=== PATIENT | female | born 1995 | race Caucasian/White ===

== ENCOUNTER → 2018-11-19 13:54 | Outpatient (CLI) | payer OTHER, SELFPAY ==
[2018-11-19 13:01] VITALS: BMI 47.0
[2018-11-19 15:49] LABS: Protein, Urine (Random) 12.5 mg/dL (<11.9); Protein:Creat Ratio 82 mg/g CRE (0-200)
[2018-11-19 15:52] LABS: Absolute Lymphocyte Count 3.73 X10^3/ul (0.83-4.51); Basophil# 0.01 X10^3/uL; Basophil% 0.1 % (0-1); Eosinophil# 0.12 X10^3/uL; Eosinophils% 0.8 % (0-5); Hematocrit 42.1 % (37-47); Hemoglobin 14.2 g/dl (12.0-15.0); Lymphocyte # 3.73 X10^3/ul (4.0); Lymphocyte % 25.4 % (19-41); Mean Corp Hgb Conc 33.7 g/gl (32-36); Mean Corpuscular Hgb 29.3 pg (27.0-32.0); Mean Platelet Vol. 10.3 fl (6.2-12.0); Monocyte# 0.79 X10^3/uL; Monocyte% 5.4 % (0-10); Neutrophil # 10.02 X10^3/uL (2.7-7.7); Neutrophil % 68.2 % (47-70); Platelet Count 329 K/mm3 (150-450); RBC Distribution Width CV 13.4 % (11.6-14.6); RBC Distribution Width SD 42.2 fl (35.1-43.9); Red Blood Count 4.84 M/mm3 (4.2-5.4); White Blood Count 14.7 K/mm3 (4.4-11.0)
[2018-11-19 16:05] LABS: AST(SGOT) 10 U/L (15-37); Alanine Aminotransfer ALT/SGPT 20 U/L (13-56); Albumin, Serum 3.5 g/dL (3.2-5.0); Alkaline Phosphatase 64 U/L (45-117); Anion Gap 11 (5-15); BUN 9 mg/dL (7-18); BUN/Creat Ratio 14.6 RATIO (10-20); Calcium,Total 9.2 mg/dL (8.5-10.1); Chloride 104 mmol/L (98-107); Creatinine, Serum 0.62 mg/dL (0.55-1.02); EST Glomerular Filtration Rate 126 mL/min (>60); Est Glom Filt Rate - Afr Amer 153 mL/min (>60); Globulin 3.6 g/dL (2.2-4.2); Glucose 166 mg/dL (74-106); Glucose Challenge Gest 1H 50g 166 mg/dL (70-140); Potassium 3.3 mmol/L (3.5-5.1); Protein, Total 7.1 g/dL (6.4-8.2); Sodium Level 138 mmol/L (136-145)
[2018-11-19 16:12] LABS: POSITIVE COUNT NO; POSITIVE DIFFERENTIAL NO; POSITIVE MORPHOLOGY NO
[2018-11-19 16:55] LABS: HIV - WCH Non-Reactive (Nonreactive); Rubella IgG > 500.0 IU/mL
[2018-11-19 18:39] LABS: Chlamydia Trachomatis by PCR Negative (Negative); Neisserai gonorrhoeae by PCR Negative (Negative); Probe Check PASS; Sample Adequacy Control PASS; Specimen Processing Control PASS
[2018-11-19 22:03] LABS: Chlamydia Trachomatis by PCR Negative (Negative); Neisserai gonorrhoeae by PCR Negative (Negative); Probe Check PASS; Sample Adequacy Control PASS; Specimen Processing Control PASS
[2018-11-21 11:52] LABS: HEPATITIS B SURFACE AG Negative (Negative)
[2018-11-22 11:11] LABS: HPV Reflexed? NOT INDICATED
[2018-11-23 07:38] LABS: Rapid Plasmin Reagin (RPR) NONREACTIVE (NONREACTIVE)
== END ==
PROVIDERS: Visit Provider Obstetrics & Gynecology
DX: Z34.90 Encounter for supervision of normal pregnancy, unspecified, unspecified trimester (principal); Z12.4 Encounter for screening for malignant neoplasm of cervix
CPT/HCPCS: 36415; 80053; 82570; 82950; 84156; 85025; 86592; 86703; 86762; 86850; 86900; 87086; 87088; 87340; 87491; 87591; 87624; 88175; G0145

== ENCOUNTER 2018-12-28 19:32 | Inpatient (IN) | payer OTHER, SELFPAY ==
[2018-12-07 09:07] VITALS: BMI 47.0
[2018-12-28] VITALS (10 sets, daily range): BP systolic 122–164; BP diastolic 69–84; PULSE 126–137; RESP 20–28; TEMP 37.7–39.2; O2SAT 91–95; BMI 46.0
--- NOTE | 2018-12-28 20:36 | EKG12_ITS ---
Test Reason : SOB Blood Pressure : / mmHG Vent. Rate : 124 BPM Atrial Rate : 124 BPM P-R Int : 132 ms QRS Dur : 090 ms QT Int : 304 ms P-R-T Axes : 059 048 016 degrees QTc Int : 436 ms Sinus tachycardia Otherwise normal ECG Confirmed by PEYTON GALVEZ, CARLOS ([id number]), legal editor RYANN GUZMÁN ([id number] on 01/01/2019 9:20:53 AM Referred By: Robbie Rios Confirmed By:CARLOS TODD MD
--- NOTE | 2018-12-28 20:36 | RAD_ITS ---
STUDY: X-RAY CHEST REASON FOR EXAM: Female, 23 years old. dx with pneumonia x 3 days, feeling worse TECHNIQUE: Frontal and lateral views of the chest. COMPARISON: None. FINDINGS: Normal lung volumes. Prominent opacification of the right lower lobe extending to and involving the right hilum. Findings are consistent with combination of pneumonia and atelectasis. No effusion. Left lung appears clear. Normal size heart. Normal mediastinum and jerry. Normal visualized pulmonary arteries. Normal visualized aortic arch and descending thoracic aorta. Normal visualized thoracic spine. Normal visualized ribs, clavicles, and shoulders. There is no demonstrated abnormality of the visualized soft tissue structures of the upper abdomen. RAD/Chest PA and Lateral IMPRESSION: Prominent opacification of the right lower lobe extending to and involving the right hilum. Findings are consistent with combination of pneumonia and atelectasis. Electronically Signed: Praful Shrestha MD at 21:48 EST , Service support ,
[2018-12-28] MEDS: Ipratropium/Albuterol Sulfate 3 ML AMPUL.NEB INHALATION ×2 (20:54→23:49)
[2018-12-28] MEDS: Albuterol 2.5 MG/3 ML VIAL.NEB. INHALATION ×2 (20:54→21:47)
[2018-12-28 21:02] LABS: Red Blood Cells-Urine 0 SEEN /hpf (0-5)
[2018-12-28 21:09] LABS: Color, Urine Yellow (Yellow); Glucose, Dipstick Normal (Normal); Ketone-Dipstick 50 mg/dl (Negative); Leukocyte Esterase-Dipstick 25 /ul (Negative); Nitrite-Dipstick Negative (Negative); Occult Blood-Urine 10 /ul (Negative); Protein-Dipstick 15 mg/dl (Negative); Urine Bilirubin Dipstick Negative (Negative); Urine Clarity Clear (Clear); Urine Urobilinogen 1 mg/dl (Normal)
[2018-12-28 21:17] LABS: Calcium Oxalate Crystals Ur RARE /hpf (<or=2+); Mucous, Urine 2+ /hpf (<or=2+); Squamous Epithelial Cells - UA 0-5 SEEN /hpf (5-10)
[2018-12-28 21:18] LABS: Bacteria RARE /hpf (None Seen); White Blood Cells 0 SEEN /hpf (0-5)
[2018-12-28 21:33] LABS: Absolute Lymphocyte Count 1.84 X10^3/ul (0.83-4.51); Absolute Neutrophil Count 7.6 X10^3/uL (2.0-7.7); Basophil# 0.02 X10^3/uL; Basophil% 0.2 % (0-1); Hematocrit 36.3 % (37-47); Hemoglobin 12.1 g/dl (12.0-15.0); Lymphocyte # 1.84 X10^3/ul (4.0); Lymphocyte % 17.6 % (19-41); Mean Corp Hgb Conc 33.3 g/gl (32-36); Mean Corpuscular Hgb 28.3 pg (27.0-32.0); Mean Platelet Vol. 9.5 fl (6.2-12.0); Monocyte% 8.6 % (0-10); Neutrophil # 7.64 X10^3/uL (2.7-7.7); Neutrophil % 73.2 % (47-70); POSITIVE COUNT NO; POSITIVE DIFFERENTIAL NO; POSITIVE MORPHOLOGY NO; Platelet Count 272 K/mm3 (150-450); RBC Distribution Width CV 14.4 % (11.6-14.6); RBC Distribution Width SD 44.9 fl (35.1-43.9); Red Blood Count 4.27 M/mm3 (4.2-5.4); White Blood Count 10.4 K/mm3 (4.4-11.0)
[2018-12-28] MEDS: Ceftriaxone 1 GM/50 ML BAG IV (21:42)
[2018-12-28 21:53] LABS: Anion Gap 10 (5-15); BUN 6 mg/dL (7-18); BUN/Creat Ratio 8.9 RATIO (10-20); Calcium,Total 8.6 mg/dL (8.5-10.1); Chloride 101 mmol/L (98-107); Creatinine, Serum 0.67 mg/dL (0.55-1.02); EST Glomerular Filtration Rate 114 mL/min (>60); Est Glom Filt Rate - Afr Amer 138 mL/min (>60); Estimated Creatinine Clearance 204.39 ml/min; Glucose 96 mg/dL (74-106); Potassium 3.6 mmol/L (3.5-5.1); Sodium Level 134 mmol/L (136-145)
--- NOTE | 2018-12-28 21:53 | ED.RN ---
US was needed to place IV. Attempted 2nd BC, not successful, MD aware.
[2018-12-28 22:05] LABS: Lactic Acid 1.7 mmol/L (0.4-2.0)
--- NOTE | 2018-12-28 22:19 | HP.PCM_ITS ---
Problem List (1) Community acquired pneumonia Status: Acute (2) Asthma Status: Chronic Qualifiers: Asthma severity: mild Asthma persistence: intermittent Asthma complication type: uncomplicated Qualified Code(s): J45.20 - Mild intermittent asthma, uncomplicated Comment: uses albuterol PRN History of Present Illness Date of Admission: 12/28/18 Chief Complaint: cough The patient is a 23 year old F with a significant history of asthma who is 14 weeks presenting to the emergency department because of 5-day history of progressively worsening cough. Associated with her symptoms is sore throat; sore eardrums; chills; nausea; vomiting; wheezing, poor appetite and abdominal pain. Her cough is productive for yellow sputum. She reported that her boyfriend recently had pneumonia. She went to urgent care. At the urgent care her temperature was 100.4. Reportedly because she was she was not given any medication. Because of progressively worsening shortness of breath, 2 days later she went to [facility] where an x-ray showed right-sided pneumonia. She was given fluids and azithromycin. Because she was still not feeling better she went to see her PCP. At the PCPs office tone was no head. Urinalysis was done. She was told to call her INTEGRITY MANAGER doctor. Patient called her MACHINE PECAN PICKER doctor and she was instructed to come to the emergency department. At emergency department heart tone was no heard. But an ultrasound of her pelvis showed viable fetus but with low amniotic fluid. Dr. Rita Sierra OBGYVirla was consulted from the ED and she requested hydration and repeat vaginal ultrasound next day. Her urinalysis was mildly abnormal and her x-ray showed opacification of the right lower lobe extending to the right hilium. Patient was given breathing treatment and ceftriaxone. Of note patient reports history of hallucination with systemic steroids. 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 Asthma (Chronic) J45.909 uses albuterol PRN Allergies prednisone Allergy (Mild, Verified 12/28/18 19:33) hallucinations Sulfa (Sulfonamide Antibiotics) Allergy (Mild, Verified 12/28/18 19:33) hives Home Medications: Ambulatory Orders Medication Instructions Recorded albuterol sulfate 0.63 mg/3 mL 0.63 mg INHALATION Q4H 11/19/18 solution for nebulization albuterol sulfate HFA 90 2 puff INHALATION Q6H PRN 11/19/18 mcg/actuation aerosol inhaler Azithromycin 250 mg PO DAILY 12/28/18 Cefuroxime Axetil [Cefuroxime] 500 mg PO BID 12/28/18 Surgical History: Surgical History (Last Reviewed 12/07/18 @ 09:01 by Kaylie Carey) History of tonsillectomy and adenoidectomy Z98.890 [place] teeth removed K08.409 Lives: With Family Smoking Status: Former smoker Review of Systems Constitutional: Reports: Anorexia, Chills, Fever. Denies: Weight Change HEENT: Reports: Ear Pain, Sore Throat. Denies: Head Aches, Sinus Congestion, Sinus Drainage Cardiovascular: Denies: Chest Pain, Palpitations Respiratory: Reports: Cough, Shortness of Breath, Sputum production Gastrointestinal: Reports: Abdominal Pain Genitourinary: Denies: Incontinence, Nocturia Musculoskeletal: Denies: Joint Pain, Joint Tenderness Skin: Denies: Rash, Wounds Neurological: Denies: Numbness, Tingling, Focal weakness Psychiatric: Denies: Anxiety, Depression, Homicidal Ideations, Suicidal Ideations Hematologic/ Lymphatic: Denies: Easy Bruising, Easy Bleeding VTE Information - Inpt Only VTE Present on Admission: No VTE Mechan Device Prophylaxis: SCD's VTE Pharm Prophylaxis ordered?: No Patient Problems: Active and Suspected Problems (Last Reviewed 12/07/18 @ 09:01 by Kaylie Carey) Community acquired pneumonia (Acute) - Physical Exam General: Alert, Oriented x3, Cooperative HEENT: Atraumatic, PERRLA, EOMI, Normocephalic Neck: Supple, No JVD, Negative Carotid Bruits Lungs: Tachypneic, Wheezes Cardiovascular: No murmurs, Tachycardic Abdomen: Bowel Sounds Present, Soft, Non Tender Extremities: No edema, Capillary Refill Less than 3 Seconds Skin: No rashes, No breakdown Musculoskeletal: No Tenderness to Palpation of Joints or Extremities Neurological: Neuro grossly intact Psych/Mental Status: Normal Affect, Appropriate Vital Signs Temp Pulse Resp BP Pulse Ox 99.8 F H 136 H 20 H 136/69 H 93 12/28/18 21:52 12/28/18 21:52 12/28/18 21:52 12/28/18 21:52 12/28/18 21:52 Oxygen Delivery Method Room Air Weight: 100 kg Body Mass Index (BMI) 46.0 Laboratory Tests Past 24 Hrs 12/28/18 12/28/18 12/28/18 20:50 21:21 21:21 WBC 10.4 RBC 4.27 Hgb 12.1 Hct 36.3 L MCV 85.0 MCH 28.3 MCHC 33.3 RDW 14.4 RDW Differential 44.9 H Plt Count 272 MPV 9.5 Immature Gran % (Auto) 0.400 Neut % (Auto) 73.2 H Lymph % (Auto) 17.6 L [place] % (Auto) 8.6 Eos % (Auto) 0.0 Baso % (Auto) 0.2 Absolute Neuts (auto) 7.6 Absolute Lymphs (auto) 1.84 Total Counted Not Reportable Sodium 134 L Potassium 3.6 Chloride 101 Carbon Dioxide 23.0 Anion Gap 10 BUN 6 L Creatinine 0.67 Estim Creat Clear Calc 204.39 Est GFR (MDRD) Af Amer 138 Est GFR (MDRD) Non-Af 114 BUN/Creatinine Ratio 8.9 L Glucose 96 Lactic Acid Calcium 8.6 Urine Color Yellow Urine Clarity Clear Urine pH 5.0 Ur Specific [place] 1.020 Urine Protein 15 H Urine Glucose (UA) Normal Urine Ketones 50 H Urine Occult Blood 10 H Urine Nitrite Negative Urine Bilirubin Negative Urine Urobilinogen 1 H Ur Leukocyte Esterase 25 H Urine RBC 0 SEEN Urine WBC 0 SEEN Ur Squamous Epith Cells 0-5 SEEN Calcium Oxalate Crystal RARE Urine Bacteria RARE Urine Mucus 2+ 12/28/18 21:21 WBC RBC Hgb Hct MCV MCH MCHC RDW RDW Differential Plt Count MPV Immature Gran % (Auto) Neut % (Auto) Lymph % (Auto) [place] % (Auto) Eos % (Auto) Baso % (Auto) Absolute Neuts (auto) Absolute Lymphs (auto) Total Counted Sodium Potassium Chloride Carbon Dioxide Anion Gap BUN Creatinine Estim Creat Clear Calc Est GFR (MDRD) Af Amer Est GFR (MDRD) Non-Af BUN/Creatinine Ratio Glucose Lactic Acid 1.7 Calcium Urine Color Urine Clarity Urine pH Ur Specific [place] Urine Protein Urine Glucose (UA) Urine Ketones Urine Occult Blood Urine Nitrite Urine Bilirubin Urine Urobilinogen Ur Leukocyte Esterase Urine RBC Urine WBC Ur Squamous Epith Cells Calcium Oxalate Crystal Urine Bacteria Urine Mucus Assessment/Plan All Active Problems (Last Reviewed 12/07/18 @ 09:01 by Kaylie Carey) Community acquired pneumonia (Acute) Anxiety during (Acute) 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 Sepsis secondary to Committee acquired pneumonia Patient received ceftriaxone at the emergency department. Ceftriaxone continued. She had received azithromycin prior to presentation. We will continue patient on azithromycin IV. Scheduled DuoNeb and as needed albuterol ordered Will avoid steroids since patient has a history of hallucinations with steroids. Blood cultures are pending. Comprehensive respiratory pathogen panel ordered Legionella antigen and strep pneumo antigen ordered. Mycoplasma antibody ordered. Scheduled DuoNeb and as needed albuterol. Lactic acid was unremarkable. Patient met sepsis criteria with tachycardia; tachypnea and with radiographic evidence of pulmonary consolidation. Asthma exacerbation Likely due to pneumonia Scheduled DuoNeb. As need Albuterol. No steroids due to history of hallucination with steroids. UTI Abnormal urinalysis. Patient with mildly abnormal urinalysis in the setting of . Bacteria rare; leukocyte esterase 25 and nitrite negative. Will obtain urine culture. We will treat as UTI. Low Amniotic Fluid IVF normal saline hydration Repeat vaginal ultrasound in am per OBGYN recommendation tone every shift. OBGYN consult. DVT prophylaxis SCD Code Visit Inpatient E&M: 13114 Init Hosp L3
--- NOTE | 2018-12-28 22:52 | US_ITS ---
STUDY: SECOND AND THIRD TRIMESTER OBSTETRICAL ULTRASOUND - LIMITED REASON FOR EXAM: Female, 23 years old. Abdominal pain and discharge LMP: 09/20/2018 PRIOR ULTRASOUND: None. TECHNIQUE: Transvaginal TECHNICAL QUALITY: Adequate. FINDINGS: There is a single intrauterine fetus. The fetus is in a breech presentation. There is demonstrated cardiac activity with a heart rate of 190 bpm. There is grossly decreased amniotic fluid volume suggesting oligohydramnios. The largest demonstrated amniotic fluid pocket measures 0.9 cm.The placenta is fundal and anterior in location. There are Grade 0 placental changes. The cervix measures 3.1 cm in length. Debris is present in the maternal bladder. A maternal left ovary cyst is present measuring 1.5 cm. BIOMETRY: BPD: 1.95 cm: 13 weeks, 1 days HC: 7.72: 13 weeks, 2 days AC: 6.47: 13 weeks, 2 days FL: 0.82: 12 weeks, 4 days Age by LMP: 14 weeks, 1 days. ELVIA by LMP: 06/27/2019. age by current US: 13 weeks, 1 days. ELVIA by current US: 07/04/2019. Estimated weight: 65 grams, +/- 10 grams, percentile. US/Transvaginal w/Preg US IMPRESSION: Intrauterine gestation with sonographic age of 13 weeks 1 day. Cervix is closed. Positive cardiac activity. Low amniotic fluid volume. Normal placenta. Electronically Signed: Pedro Castellanos MD at 0:22 EST Tel , Service support ,
--- NOTE | 2018-12-28 23:48 | ED.VISSUMM ---
- ER Visit Summary Date of Service: 12/28/18 Chief Complaint: [Shortness of breath] History of Present Illness: The patient is a 23 F [presents with shortness of breath times 5 days. Patient states that she started coughing and feeling short of breath 5 days ago. Patient was seen at [facility] and had a chest x-ray 2 days ago and diagnosed with a right-sided pneumonia. Patient was started at that time on Zithromax. Prior to that 5 days ago she was seen at urgent care and had an influenza screen that was negative. Patient subsequently had a second influenza screen that was negative. Patient was seen by her primary care physician today who added a second antibiotic cefuroxime which she just started today. Patient complains of exertional dyspnea as well as a cough that is productive of yellow sputum. Patient continues to have fevers up to 103. Patient is also 14 weeks . Patient states that during her visits nobody is been able to Doppler heart tones. Patient's last pelvic ultrasound was in November and at that time was diagnosed with a threatened as she had had some bleeding issues. Patient states that she did pass one clot yesterday. She is complaining of some lower abdominal discomfort.] Physical Examination: [HEENT-PERRLA, EOMI. Cranial nerves II through XII grossly intact. TMs clear. Mucous membranes moist. No adenopathy. Cardiovascular-regular and tachycardic. No murmurs auscultated. Lungs-diminished breath sounds in the bases with rhonchi and expiratory wheezes bilaterally. Patient is tachypneic. No accessory muscle use or retractions. Abdomen-normoactive bowel sounds, soft. Patient has some mild tenderness to palpation over the lower abdomen diffusely. There is no rebound, rigidity, or perineal signs. Extremities-intact ?4, normal range of motion, normal pulses, atraumatic] Test Results: [EKG obtained showed sinus rhythm with a ventricular rate of 124 bpm. CBC with differential showing a 10.4, hemoglobin 12, hematocrit 36, platelets 272. Chemistries unremarkable. Lactate was 1.7. Chest x-ray showed a right lower lobe pneumonia. Pelvic ultrasound ordered and pending as we were unable to obtain heart tones.] Emergency Department Course and Treatment: [Patient was started on Rocephin IV. Patient had already taken Zithromax today.] Treatment Plan: [Care of patient turned over to evening physician awaiting pelvic ultrasound results. I discussed case with hospitalist who will evaluate patient for admission after we discussed case with patient's DIRECT RESPONSE CONSULTANT.] Disposition: [Admission] Impression: [Pneumonia Sepsis 14-week ] This note was generated with Jiglu dictation software. It may contain incorrect words, spelling, and punctuation that were not noted in review of the chart prior to signing ED Disposition - Plan for ED Patient: Referrals: [facility] Doctor,Out of [Primary Care Provider] -
--- NOTE | 2018-12-28 23:52 | ED.DCSUM_ITS ---
- ER Visit Summary Date of Service: 12/28/18 Chief Complaint: [Shortness of breath] History of Present Illness: The patient is a 23 F [presents with shortness of breath times 5 days. Patient states that she started coughing and feeling short of breath 5 days ago. Patient was seen at [facility] and had a chest x-ray 2 days ago and diagnosed with a right-sided pneumonia. Patient was started at that time on Zithromax. Prior to that 5 days ago she was seen at urgent care and had an influenza screen that was negative. Patient subsequently had a second influenza screen that was negative. Patient was seen by her primary care physician today who added a second antibiotic cefuroxime which she just started today. Patient complains of exertional dyspnea as well as a cough that is productive of yellow sputum. Patient continues to have fevers up to 103. Patient is also 14 weeks . Patient states that during her visits nobody is been able to Doppler heart tones. Patient's last pelvic ultrasound was in November and at that time was diagnosed with a threatened as she had had some bleeding issues. Patient states that she did pass one clot yesterday. She is complaining of some lower abdominal discomfort.] Physical Examination: [HEENT-PERRLA, EOMI. Cranial nerves II through XII grossly intact. TMs clear. Mucous membranes moist. No adenopathy. Cardiovascular-regular and tachycardic. No murmurs auscultated. Lungs-diminished breath sounds in the bases with rhonchi and expiratory wheezes bilaterally. Patient is tachypneic. No accessory muscle use or retractions. Abdomen-normoactive bowel sounds, soft. Patient has some mild tenderness to palpation over the lower abdomen diffusely. There is no rebound, rigidity, or perineal signs. Extremities-intact ?4, normal range of motion, normal pulses, atraumatic] Test Results: [EKG obtained showed sinus rhythm with a ventricular rate of 124 bpm. CBC with differential showing a 10.4, hemoglobin 12, hematocrit 36, platelets 272. Chemistries unremarkable. Lactate was 1.7. Chest x-ray showed a right lower lobe pneumonia. Pelvic ultrasound ordered and pending as we were unable to obtain heart tones.] Emergency Department Course and Treatment: [Patient was started on Rocephin IV. Patient had already taken Zithromax today.] Treatment Plan: [Care of patient turned over to evening physician awaiting pelvic ultrasound results. I discussed case with hospitalist who will evaluate patient for admission after we discussed case with patient's MARKET SALES MANAGER.] Disposition: [Admission] Impression: [Pneumonia Sepsis 14-week ] This note was generated with ROCKI dictation software. It may contain incorrect words, spelling, and punctuation that were not noted in review of the chart prior to signing ED Disposition - Plan for ED Patient: Referrals: [facility] Doctor,Out of [Primary Care Provider] -
[2018-12-29] VITALS (13 sets, daily range): BP systolic 111–135; BP diastolic 67–92; PULSE 97–124; RESP 18–25; TEMP 36.8–39.2; O2SAT 94–98; BMI 45.9
[2018-12-29] MEDS: 0.9% Normal Saline 1,000 ML 999 ML IV (00:16)
[2018-12-29] MEDS: 0.9% Normal Saline 1,000 ML 150 ML IV (02:02)
--- NOTE | 2018-12-29 02:09 | NURSING ---
cps notified of resp/flu panel
[2018-12-29] MEDS: Acetaminophen 325 MG Tablet 650 MG PO ×4 (02:12→20:52)
[2018-12-29] MEDS: Ondansetron 4 MG/2 ML Vial IV (03:17)
[2018-12-29] MEDS: Ipratropium/Albuterol Sulfate 3 ML AMPUL.NEB INHALATION ×6 (03:50→23:39)
[2018-12-29 07:05] LABS: Anion Gap 11 (5-15); BUN 5 mg/dL (7-18); BUN/Creat Ratio 10.4 RATIO (10-20); Calcium,Total 7.9 mg/dL (8.5-10.1); Chloride 108 mmol/L (98-107); Creatinine, Serum 0.48 mg/dL (0.55-1.02); EST Glomerular Filtration Rate 168 mL/min (>60); Est Glom Filt Rate - Afr Amer 203 mL/min (>60); Estimated Creatinine Clearance 284.45 ml/min; Glucose 87 mg/dL (74-106); Potassium 3.4 mmol/L (3.5-5.1); Sodium Level 138 mmol/L (136-145)
[2018-12-29 07:14] LABS: Absolute Lymphocyte Count 2.08 X10^3/ul (0.83-4.51); Absolute Neutrophil Count 5.5 X10^3/uL (2.0-7.7); Basophil# 0.03 X10^3/uL; Basophil% 0.4 % (0-1); Hematocrit 33.5 % (37-47); Hemoglobin 11.1 g/dl (12.0-15.0); Lymphocyte # 2.08 X10^3/ul (4.0); Lymphocyte % 24.3 % (19-41); Mean Corp Hgb Conc 33.1 g/gl (32-36); Mean Corpuscular Hgb 28.5 pg (27.0-32.0); Mean Corpuscular Volume 85.9 fL (81-99); Mean Platelet Vol. 9.7 fl (6.2-12.0); Monocyte# 0.92 X10^3/uL; Monocyte% 10.7 % (0-10); Neutrophil # 5.49 X10^3/uL (2.7-7.7); Platelet Count 276 K/mm3 (150-450); RBC Distribution Width CV 14.4 % (11.6-14.6); RBC Distribution Width SD 44.2 fl (35.1-43.9); White Blood Count 8.6 K/mm3 (4.4-11.0)
[2018-12-29 07:17] LABS: Differential Indicated SCAN CRITERIA MET; POSITIVE COUNT NO; POSITIVE DIFFERENTIAL NO; POSITIVE MORPHOLOGY YES
[2018-12-29 07:40] LABS: Reactive Lymphocyte 1+
[2018-12-29] MEDS: 0.9% NaCl Peripheral Flush Adult/Peds IV (08:04)
--- NOTE | 2018-12-29 09:09 | CPS ---
PEP Therapy device left at bedside, patient sleeping currently, will instruct later.
--- NOTE | 2018-12-29 09:36 | PCM.PN.OB ---
Patient Problems: Active and Suspected Problems (Last Reviewed 12/29/18 @ 07:05 by Robbie Rios MD) Community acquired pneumonia (Acute) Subjective: patient admitted with CAP, also complaining of leaking fluid for several days. she has been coughing though and thought it was leaking urine. she feels chest tightness and wheezing and has been on IV antibiotics and inhaler treatments. she denies vaginal bleeding at this time - Physical Exam General: Alert, Oriented x3 Neck: No Nodes, Thyroid Normal Size and Texture Lungs: Diminished, Wheezes Cardiovascular: Regular rate Abdomen: Soft, Non Tender, - - vaginal: clear LOF Vital Signs Temp Pulse Resp BP Pulse Ox 98.5 F 120 H 20 H 135/89 H 97 12/29/18 08:00 12/29/18 08:00 12/29/18 08:00 12/29/18 08:00 12/29/18 08:00 Oxygen Delivery Method Room Air Weight: 219 lb 12.814 oz Body Mass Index (BMI) 45.9 Intake and Output for Last 24 Hours 12/27/18 12/28/18 12/29/18 23:59 23:59 23:59 Intake Total 886 / 886 Output Total 800 / 800 Balance 86 / 86 Microbiology Past 72 Hours 12/29/18 03:50 Influenza Types A,B Direct FA (NASRIN) - Final Mucosa - Nasopharyngeal 12/28/18 20:50 Streptococcus pneumoniae Antigen (M - Final Urine, Clean Catch 12/28/18 20:50 Legionella Antigen - Final Urine, Clean Catch Laboratory Tests Past 24 Hrs 12/28/18 12/28/18 12/28/18 20:50 21:21 21:21 WBC 10.4 RBC 4.27 Hgb 12.1 Hct 36.3 L MCV 85.0 MCH 28.3 MCHC 33.3 RDW 14.4 RDW Differential 44.9 H Plt Count 272 MPV 9.5 Immature Gran % (Auto) 0.400 Neut % (Auto) 73.2 H Lymph % (Auto) 17.6 L [place] % (Auto) 8.6 Eos % (Auto) 0.0 Baso % (Auto) 0.2 Absolute Neuts (auto) 7.6 Absolute Lymphs (auto) 1.84 Total Counted Not Reportable Reactive Lymphocytes Sodium 134 L Potassium 3.6 Chloride 101 Carbon Dioxide 23.0 Anion Gap 10 BUN 6 L Creatinine 0.67 Estim Creat Clear Calc 204.39 Est GFR (MDRD) Af Amer 138 Est GFR (MDRD) Non-Af 114 BUN/Creatinine Ratio 8.9 L Glucose 96 Lactic Acid Calcium 8.6 Urine Color Yellow Urine Clarity Clear Urine pH 5.0 Ur Specific [place] 1.020 Urine Protein 15 H Urine Glucose (UA) Normal Urine Ketones 50 H Urine Occult Blood 10 H Urine Nitrite Negative Urine Bilirubin Negative Urine Urobilinogen 1 H Ur Leukocyte Esterase 25 H Urine RBC 0 SEEN Urine WBC 0 SEEN Ur Squamous Epith Cells 0-5 SEEN Calcium Oxalate Crystal RARE Urine Bacteria RARE Urine Mucus 2+ Mycoplasma pneumon IgG Mycoplasma pneumon IgM 12/28/18 12/29/18 12/29/18 21:21 06:22 06:22 WBC RBC Hgb Hct MCV MCH MCHC RDW RDW Differential Plt Count MPV Immature Gran % (Auto) Neut % (Auto) Lymph % (Auto) [place] % (Auto) Eos % (Auto) Baso % (Auto) Absolute Neuts (auto) Absolute Lymphs (auto) Total Counted Reactive Lymphocytes Sodium 138 Potassium 3.4 L Chloride 108 H Carbon Dioxide 19.0 L Anion Gap 11 BUN 5 L Creatinine 0.48 L Estim Creat Clear Calc 284.45 Est GFR (MDRD) Af Amer 203 Est GFR (MDRD) Non-Af 168 BUN/Creatinine Ratio 10.4 Glucose 87 Lactic Acid 1.7 Calcium 7.9 L Urine Color Urine Clarity Urine pH Ur Specific [place] Urine Protein Urine Glucose (UA) Urine Ketones Urine Occult Blood Urine Nitrite Urine Bilirubin Urine Urobilinogen Ur Leukocyte Esterase Urine RBC Urine WBC Ur Squamous Epith Cells Calcium Oxalate Crystal Urine Bacteria Urine Mucus Mycoplasma pneumon IgG Pending Mycoplasma pneumon IgM Pending 12/29/18 06:22 WBC 8.6 RBC 3.90 L Hgb 11.1 L Hct 33.5 L MCV 85.9 MCH 28.5 MCHC 33.1 RDW 14.4 RDW Differential 44.2 H Plt Count 276 MPV 9.7 Immature Gran % (Auto) 0.600 Neut % (Auto) 64.0 Lymph % (Auto) 24.3 [place] % (Auto) 10.7 H Eos % (Auto) 0.0 Baso % (Auto) 0.4 Absolute Neuts (auto) 5.5 Absolute Lymphs (auto) 2.08 Total Counted Not Reportable Reactive Lymphocytes 1+ Sodium Potassium Chloride Carbon Dioxide Anion Gap BUN Creatinine Estim Creat Clear Calc Est GFR (MDRD) Af Amer Est GFR (MDRD) Non-Af BUN/Creatinine Ratio Glucose Lactic Acid Calcium Urine Color Urine Clarity Urine pH Ur Specific [place] Urine Protein Urine Glucose (UA) Urine Ketones Urine Occult Blood Urine Nitrite Urine Bilirubin Urine Urobilinogen Ur Leukocyte Esterase Urine RBC Urine WBC Ur Squamous Epith Cells Calcium Oxalate Crystal Urine Bacteria Urine Mucus Mycoplasma pneumon IgG Mycoplasma pneumon IgM Medical Necessity - Tobacco Use Smoking Status: Former smoker Assessment/Plan All Active Problems (Last Reviewed 12/29/18 @ 07:05 by Robbie Rios MD) Community acquired pneumonia (Acute) Anxiety during (Acute) 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 CAP- medical mgt per hospitalist, on antibiotics d#2. plan dc home if stable and afebrile for 24 hours, possibly tomorrow. 2. PPROM with Oligohydramnios- IVFs being given, ROM plus positive, d/w MFM, [facility]. 3. previability- discussed with patient that PPROM this early will likely not be viable for , but will await outpatient consultation for decision. 4. asthma- mgt per hospitalist.
--- NOTE | 2018-12-29 09:54 | PCM.PN.HOSP ---
Patient Problems: Active and Suspected Problems (Last Reviewed 12/29/18 @ 07:05 by Robbie Rios MD) Community acquired pneumonia (Acute) Subjective: Patient seen and examined. Complains of shortness of breath with fever. Still having low-grade fevers. Denied any nausea or vomiting. Vitals/I&O's: Vital Signs Temp Pulse Resp BP Pulse Ox 98.5 F 120 H 20 H 135/89 H 97 12/29/18 08:00 12/29/18 08:00 12/29/18 08:00 12/29/18 08:00 12/29/18 08:00 Oxygen Delivery Method Room Air Weight: 99.7 kg Body Mass Index (BMI) 45.9 Intake and Output for Last 24 Hours 12/27/18 12/28/18 12/29/18 23:59 23:59 23:59 Intake Total 886 / 886 Output Total 800 / 800 Balance 86 / 86 General: Alert, Oriented x3, Cooperative, No apparent distress HEENT: Atraumatic, PERRLA, EOMI, Normocephalic Oral: Moist Mucosa Neck: Supple Lungs: Diminished, Rhonchi Cardiovascular: Regular rate, Regular Rhythm, Normal S1, Normal S2, No murmurs Abdomen: Bowel Sounds Present, Soft, Non-Distended, No Hepato-splenomegaly, Tender - mild lower abdominal tenderness Extremities: No edema Skin: No rashes Musculoskeletal: No Tenderness to Palpation of Joints or Extremities Lymphatic: No Cervical, Supraclavicular, or Inguinal Adenopathy Neurological: Cranial nerves II-XII grossly intact, Neuro grossly intact Psych/Mental Status: Normal Affect, Appropriate Microbiology Past 72 Hours 12/29/18 03:50 Mucosa - Nasopharyngeal Influenza Types A,B Direct FA (NASRIN) - Final 12/28/18 20:50 Urine, Clean Catch Streptococcus pneumoniae Antigen (M - Final 12/28/18 20:50 Urine, Clean Catch Legionella Antigen - Final Laboratory Results 12/28/18 20:50: Urine Color Yellow, Urine Clarity Clear, Urine pH 5.0, Ur Specific [place] 1.020, Urine Protein 15 H, Urine Glucose (UA) Normal, Urine Ketones 50 H, Urine Occult Blood 10 H, Urine Nitrite Negative, Urine Bilirubin Negative, Urine Urobilinogen 1 H, Ur Leukocyte Esterase 25 H, Urine RBC 0 SEEN, Urine WBC 0 SEEN, Ur Squamous Epith Cells 0-5 SEEN, Calcium Oxalate Crystal RARE, Urine Bacteria RARE, Urine Mucus 2+ 12/28/18 21:21: WBC 10.4, RBC 4.27, Hgb 12.1, Hct 36.3 L, MCV 85.0, MCH 28.3, MCHC 33.3, RDW 14.4, RDW Differential 44.9 H, Plt Count 272, MPV 9.5, Immature Gran % (Auto) 0.400, Neut % (Auto) 73.2 H, Lymph % (Auto) 17.6 L, [place] % (Auto) 8.6, Eos % (Auto) 0.0, Baso % (Auto) 0.2, Absolute Neuts (auto) 7.6, Absolute Lymphs (auto) 1.84, Total Counted Not Reportable 12/28/18 21:21: Sodium 134 L, Potassium 3.6, Chloride 101, Carbon Dioxide 23.0, Anion Gap 10, BUN 6 L, Creatinine 0.67, Estim Creat Clear Calc 204.39, Est GFR (MDRD) Af Amer 138, Est GFR (MDRD) Non-Af 114, BUN/Creatinine Ratio 8.9 L, Glucose 96, Calcium 8.6 12/28/18 21:21: Lactic Acid 1.7 12/29/18 06:22: Mycoplasma pneumon IgG Pending, Mycoplasma pneumon IgM Pending 12/29/18 06:22: Sodium 138, Potassium 3.4 L, Chloride 108 H, Carbon Dioxide 19.0 L, Anion Gap 11, BUN 5 L, Creatinine 0.48 L, Estim Creat Clear Calc 284.45, Est GFR (MDRD) Af Amer 203, Est GFR (MDRD) Non-Af 168, BUN/Creatinine Ratio 10.4, Glucose 87, Calcium 7.9 L 12/29/18 06:22: WBC 8.6, RBC 3.90 L, Hgb 11.1 L, Hct 33.5 L, MCV 85.9, MCH 28.5, MCHC 33.1, RDW 14.4, RDW Differential 44.2 H, Plt Count 276, MPV 9.7, Immature Gran % (Auto) 0.600, Neut % (Auto) 64.0, Lymph % (Auto) 24.3, [place] % (Auto) 10.7 H, Eos % (Auto) 0.0, Baso % (Auto) 0.4, Absolute Neuts (auto) 5.5, Absolute Lymphs (auto) 2.08, Total Counted Not Reportable, Reactive Lymphocytes 1+ 12/29/18 09:35: Vag Amniotic Fld Detect Pending Current Medications Acetaminophen (Tylenol) 650 mg PO Q6H PRN PRN PRN Reason: howe/ temp >100.4 Last Admin: 12/29/18 08:21 Dose: 650 mg Albuterol Sulfate (Ventolin Aerosols) 2.5 mg INHALATION Q2H PRN PRN PRN Reason: SHORTNESS OF BREATH Albuterol/Ipratropium (Duoneb) 3 ml INHALATION Q4H.RT [facility] Last Admin: 12/29/18 06:36 Dose: 3 ml Bisacodyl (Dulcolax) 5 mg PO DAILY PRN PRN PRN Reason: Constipation Guaifenesin (Mucinex) 1,200 mg PO BID [facility] Sodium Chloride () 500 mls @ 999 mls/hr IV .Q31M ONE Last Admin: 12/28/18 21:42 Dose: 999 mls/hr Sodium Chloride () 1,000 mls @ 150 mls/hr IV .Q6H40M [facility] Stop: 12/29/18 11:27 Last Admin: 12/29/18 02:02 Dose: 150 mls/hr Azithromycin 500 mg/ Dextrose 255 mls @ 250 mls/hr IV Q24@2200 [facility] Stop: 12/30/18 23:02 Last Admin: 12/29/18 02:02 Dose: 250 mls/hr Ceftriaxone Sodium (Rocephin) 1 gm in 50 mls @ 100 mls/hr IV Q24@2200 [facility] Sodium Chloride () 500 mls @ 999 mls/hr IV .Q31M ONE Stop: 12/29/18 10:20 Magnesium Hydroxide (Milk Of Magnesia) 30 ml PO DAILY PRN PRN PRN Reason: Constipation Nutritional Formula (Lactose Free) (Ensure Enlive) 120 ml PO 4X/DAY [facility] Ondansetron HCl (Zofran) 4 mg IV Q8H PRN PRN PRN Reason: NAUSEA Last Admin: 12/29/18 03:17 Dose: 4 mg Sodium Chloride () 5 - 15 ml IV UD PRN PRN Reason: SALINE FLUSH Last Admin: 12/29/18 08:04 Dose: 10 ml Medical Necessity - Tobacco Use Smoking Status: Former smoker Assessment/Plan All Active Problems (Last Reviewed 12/29/18 @ 07:05 by Robbie Rios MD) Community acquired pneumonia (Acute) Anxiety during (Acute) 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 Patient has been in contact with her boyfriend who recently had pneumonia. She was seen in the urgent care, temperatures 100.4, she was not given any medications. She was seen in pulmonary [facility] Hospital where an x-ray showed right-sided pneumonia she was given Sumycin and IV fluids. She proceeded to see her primary care doctor who referred her to come to the emergency department. Hospital medicine is consulted with OBGYN as primary service. 1. Sepsis secondary to right-sided community-acquired pneumonia, patient is not on oxygen, running low-grade fevers, started on IV ceftriaxone and azithromycin, stable vitals Plan: Continue same antibiotics, IV fluids, breathing treatments, encourage use of incentive spirometer 2. Partial rupture of membranes in a patient with intrauterine gestation, 13 weeks 1 day via transvaginal ultrasound, BEHAVIORAL PSYCHOLOGIST following No signs of chorioamnionitis, plan is for follow-up on Monday with high risk clinic in [place] 3. Asthma, patient has wheezes, no clear asthma exacerbation at this point, will continue to monitor, breathing treatments 4. DVT PPx- early ambulation Code Visit Inpatient E&M: 56342 [facility] Hosp L3
[2018-12-29 09:58] LABS: ROM Internal Control Test YES-OK TO RESULT pt. (Internal QC)
[2018-12-29 09:59] LABS: ROM Patient Test POSITIVE (Negative); Record Kit Lot#, ROM+ J7836
[2018-12-29] MEDS: guaiFENesin 1,200 MG Tablet 1200 MG PO ×2 (10:22→20:52)
--- NOTE | 2018-12-29 12:49 | CPS ---
PEP Therapy Device on bedside stand, not instructed at this time.
[2018-12-29] MEDS: 0.9% Normal Saline 1,000 ML 100 ML IV (14:35)
--- NOTE | 2018-12-29 16:17 | CM.UR ---
RN CM Assessment Introduced role of RN CM to patient. Patient is alert, oriented and able to participate in RN CM Assessment. Care providers, pharmacy, and demographics verified. Presentation: Failed OP pneumonia treatment. PCP: Dr dickson. Preferred Pharmacy: [facility] Insurance: [employer] ([place]) [facility] Prescription Benefit: Yes LNOK: abelinoienheriberto [employer] Living Arrangements: independent in 2 story home. Transportation: Patient drives DME: None HHC: None, No preference on Agency. SNF: None in past, No preference on Facility. DC PLAN: Home with no anticipated needs identified. Zhane chavez RN, CCM.
--- NOTE | 2018-12-29 17:13 | PCA ---
per usah/rn do not round on pt rn will
--- NOTE | 2018-12-29 18:09 | PCA ---
per usha/rn let rn round on pt
[2018-12-29] MEDS: Ceftriaxone 1 GM/50 ML BAG IV (22:09)
[2018-12-30] VITALS (11 sets, daily range): BP systolic 127–144; BP diastolic 80–101; PULSE 81–121; RESP 16–20; TEMP 36.5–37.2; O2SAT 94–99
[2018-12-30] MEDS: 0.9% Normal Saline 1,000 ML 100 ML IV ×2 (00:37→12:40)
[2018-12-30] MEDS: Ipratropium/Albuterol Sulfate 3 ML AMPUL.NEB INHALATION ×4 (03:10→23:02)
--- NOTE | 2018-12-30 08:40 | PN_ITS ---
Patient Problems: Active and Suspected Problems (Last Reviewed 12/29/18 @ 07:05 by Robbie Rios MD) Community acquired pneumonia (Acute) Subjective: Patient was seen and examined. She complains of wheezing and some SOB. Not on oxygen. Has been leaking fluid/discharge. Denies fever or chills. Respiratory panel is positive for adenovirus. Objective: Physical exam: General: Alert, Oriented x3, Cooperative, No apparent distress HEENT: Atraumatic, PERRLA, EOMI, Normocephalic Oral: Moist Mucosa Neck: Supple Lungs: Diminished, Rhonchi++ Cardiovascular: Regular rate, Regular Rhythm, Normal S1, Normal S2, No murmurs Abdomen: Bowel Sounds Present, Soft, Non-Distended, No Hepato-splenomegaly, Tender - mild lower abdominal tenderness Extremities: No edema Skin: No rashes Musculoskeletal: No Tenderness to Palpation of Joints or Extremities Lymphatic: No Cervical, Supraclavicular, or Inguinal Adenopathy Neurological: Cranial nerves II-XII grossly intact, Neuro grossly intact Psych/Mental Status: Normal Affect, Appropriate Vitals/I&O's: Vital Signs Temp Pulse Resp BP Pulse Ox 98.9 F 121 H 18 127/88 H 96 12/30/18 03:37 12/30/18 06:42 12/30/18 06:42 12/30/18 03:37 12/30/18 06:42 Oxygen Delivery Method Room Air Weight: 99.7 kg Body Mass Index (BMI) 45.9 Intake and Output for Last 24 Hours 12/28/18 12/29/18 12/31/18 23:59 23:59 00:59 Intake Total 3421 / 3421 1820 / 1820 Output Total 2100 / 2100 Balance 1321 / 1321 1820 / 1820 Microbiology Past 72 Hours 12/29/18 11:45 Sputum, Expectorated/Coughed Gram Stain - Final 12/29/18 03:50 Mucosa - Nasopharyngeal Respiratory Panel (PCR) - Final Adenovirus 12/29/18 03:50 Mucosa - Nasopharyngeal Influenza Types A,B Direct FA (NASRIN) - Final 12/28/18 20:50 Urine, Clean Catch Streptococcus pneumoniae Antigen (M - Final 12/28/18 20:50 Urine, Clean Catch Legionella Antigen - Final Laboratory Results 12/29/18 06:22: Total Counted Not Reportable, Reactive Lymphocytes 1+ 12/29/18 09:35: Vag Amniotic Fld Detect POSITIVE H Current Medications Acetaminophen (Tylenol) 650 mg PO Q6H PRN PRN PRN Reason: howe/ temp >100.4 Last Admin: 12/29/18 20:52 Dose: 650 mg Albuterol Sulfate (Ventolin Aerosols) 2.5 mg INHALATION Q2H PRN PRN PRN Reason: SHORTNESS OF BREATH Albuterol/Ipratropium (Duoneb) 3 ml INHALATION Q4H.RT [facility] Last Admin: 12/30/18 06:42 Dose: 3 ml Bisacodyl (Dulcolax) 5 mg PO DAILY PRN PRN PRN Reason: Constipation Guaifenesin (Mucinex) 1,200 mg PO BID [facility] Last Admin: 12/29/18 20:52 Dose: 1,200 mg Sodium Chloride () 500 mls @ 999 mls/hr IV .Q31M ONE Last Admin: 12/28/18 21:42 Dose: 999 mls/hr Azithromycin 500 mg/ Dextrose 255 mls @ 250 mls/hr IV Q24@2200 [facility] Stop: 12/30/18 23:02 Last Admin: 12/29/18 20:53 Dose: 250 mls/hr Ceftriaxone Sodium (Rocephin) 1 gm in 50 mls @ 100 mls/hr IV Q24@2200 [facility] Last Admin: 12/29/18 22:09 Dose: 100 mls/hr Sodium Chloride () 1,000 mls @ 100 mls/hr IV .Q10H [facility] Last Admin: 12/30/18 00:37 Dose: 100 mls/hr Magnesium Hydroxide (Milk Of Magnesia) 30 ml PO DAILY PRN PRN PRN Reason: Constipation Nutritional Formula (Lactose Free) (Ensure Enlive) 120 ml PO 4X/DAY [facility] Last Admin: 12/29/18 21:38 Dose: 120 ml Ondansetron HCl (Zofran) 4 mg IV Q8H PRN PRN PRN Reason: NAUSEA Last Admin: 12/29/18 03:17 Dose: 4 mg Sodium Chloride () 5 - 15 ml IV UD PRN PRN Reason: SALINE FLUSH Last Admin: 12/29/18 08:04 Dose: 10 ml Medical Necessity - Tobacco Use Smoking Status: Former smoker Assessment/Plan All Active Problems (Last Reviewed 12/29/18 @ 07:05 by Robbie Rios MD) Community acquired pneumonia (Acute) Anxiety during (Acute) 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 Patient has been in contact with her boyfriend who recently had pneumonia. She was seen in the urgent care, temperatures 100.4, she was not given any medications. She was seen in pulmonary and Hospital where an x-ray showed right-sided pneumonia she was given Sumycin and IV fluids. She proceeded to see her primary care doctor who referred her to come to the emergency department. Hospital medicine is consulted with OBGYN as primary service. 1. Sepsis secondary to right-sided community-acquired pneumonia, adenovirus viral bronchitis Afebrile now x 24 hours, not on oxygen On IV ceftriaxone and azithromycin, continue to encourage use of incentive spirometer 2. Acute asthma exacerbation secondary to CAP, will start patient on steroids, continue on breathing treatments, encourage use of incentive spirometer 3. Partial rupture of membranes in a patient with intrauterine gestation, 13 weeks 1 day via transvaginal ultrasound, JUNIOR SALES ASSISTANT following No signs of chorioamnionitis, plan is for follow-up on Monday with high risk clinic in [place] 4. DVT PPx- early ambulation Code Visit Inpatient E&M: 60462 [facility] Hosp L2
[2018-12-30 09:33] LABS: Absolute Lymphocyte Count 1.83 X10^3/ul (0.83-4.51); Absolute Neutrophil Count 6.2 X10^3/uL (2.0-7.7); Basophil# 0.09 X10^3/uL; Eosinophil# 0.02 X10^3/uL; Eosinophils% 0.2 % (0-5); Hematocrit 30.2 % (37-47); Lymphocyte # 1.83 X10^3/ul (4.0); Lymphocyte % 20.7 % (19-41); Mean Corp Hgb Conc 33.1 g/gl (32-36); Mean Corpuscular Hgb 28.7 pg (27.0-32.0); Mean Corpuscular Volume 86.8 fL (81-99); Mean Platelet Vol. 9.2 fl (6.2-12.0); Monocyte# 0.68 X10^3/uL; Monocyte% 7.7 % (0-10); Neutrophil # 6.19 X10^3/uL (2.7-7.7); Neutrophil % 69.9 % (47-70); Platelet Count 239 K/mm3 (150-450); RBC Distribution Width CV 14.5 % (11.6-14.6); RBC Distribution Width SD 46.3 fl (35.1-43.9); Red Blood Count 3.48 M/mm3 (4.2-5.4); White Blood Count 8.9 K/mm3 (4.4-11.0)
[2018-12-30 09:35] LABS: Differential Indicated SCAN CRITERIA MET; POSITIVE COUNT NO; POSITIVE DIFFERENTIAL NO; POSITIVE MORPHOLOGY YES
[2018-12-30 09:50] LABS: Anion Gap 11 (5-15); BUN 4 mg/dL (7-18); BUN/Creat Ratio 7.6 RATIO (10-20); Calcium,Total 8.3 mg/dL (8.5-10.1); Chloride 106 mmol/L (98-107); Creatinine, Serum 0.53 mg/dL (0.55-1.02); EST Glomerular Filtration Rate 151 mL/min (>60); Est Glom Filt Rate - Afr Amer 182 mL/min (>60); Estimated Creatinine Clearance 257.61 ml/min; Glucose 144 mg/dL (74-106); Potassium 3.6 mmol/L (3.5-5.1); Sodium Level 138 mmol/L (136-145)
[2018-12-30 09:57] LABS: Platelet Estimate ADEQUATE (ADEQ); Reactive Lymphocyte RARE
[2018-12-30 09:58] LABS: Hypochromasia RARE
[2018-12-30] MEDS: MethylPREDNISolone 125 MG/2 ML Vial IV (10:27)
[2018-12-30] MEDS: Acetaminophen 325 MG Tablet 650 MG PO (10:27)
[2018-12-30] MEDS: guaiFENesin 1,200 MG Tablet 1200 MG PO ×2 (10:29→21:07)
--- NOTE | 2018-12-30 13:01 | PN.OBGYN_ITS ---
Patient Problems: Active and Suspected Problems (Last Reviewed 12/29/18 @ 07:05 by Robbie Rios MD) Community acquired pneumonia (Acute) Subjective: still having discharge but decreased from yesterday. breathing improving, afebrile overnight,. some mild crmaping - Physical Exam General: Alert, Oriented x3 Lungs: Diminished, Wheezes Cardiovascular: Regular rate Vital Signs Temp Pulse Resp BP Pulse Ox 98.6 F 108 H 20 H 130/80 H 97 12/30/18 09:30 12/30/18 11:40 12/30/18 11:40 12/30/18 09:30 12/30/18 10:00 Oxygen Delivery Method Room Air Weight: 219 lb 12.814 oz Body Mass Index (BMI) 45.9 Intake and Output for Last 24 Hours 12/28/18 12/29/18 12/31/18 23:59 23:59 00:59 Intake Total 3421 / 3421 2260 / 2260 Output Total 2100 / 2100 300 / 300 Balance 1321 / 1321 1960 / 1960 Microbiology Past 72 Hours 12/29/18 11:45 Gram Stain - Final Sputum, Expectorated/Coughed Respiratory Culture - Preliminary Appears to be normal respiratory maxi. Further studies to follow. 12/29/18 03:50 Respiratory Panel (PCR) - Final Mucosa - Nasopharyngeal Adenovirus 12/29/18 03:50 Influenza Types A,B Direct FA (NASRIN) - Final Mucosa - Nasopharyngeal 12/28/18 20:50 Streptococcus pneumoniae Antigen (M - Final Urine, Clean Catch 12/28/18 20:50 Legionella Antigen - Final Urine, Clean Catch Laboratory Tests Past 24 Hrs 12/30/18 12/30/18 09:12 09:12 WBC 8.9 RBC 3.48 L Hgb 10.0 L Hct 30.2 L MCV 86.8 MCH 28.7 MCHC 33.1 RDW 14.5 RDW Differential 46.3 H Plt Count 239 MPV 9.2 Immature Gran % (Auto) 0.500 Neut % (Auto) 69.9 Lymph % (Auto) 20.7 [place] % (Auto) 7.7 Eos % (Auto) 0.2 Baso % (Auto) 1.0 Absolute Neuts (auto) 6.2 Absolute Lymphs (auto) 1.83 Total Counted Not Reportable Reactive Lymphocytes RARE Platelet Estimate ADEQUATE Hypochromasia RARE Sodium 138 Potassium 3.6 Chloride 106 Carbon Dioxide 21.0 Anion Gap 11 BUN 4 L Creatinine 0.53 L Estim Creat Clear Calc 257.61 Est GFR (MDRD) Af Amer 182 Est GFR (MDRD) Non-Af 151 BUN/Creatinine Ratio 7.6 L Glucose 144 H Calcium 8.3 L Medical Necessity - Tobacco Use Smoking Status: Former smoker Assessment/Plan All Active Problems (Last Reviewed 12/29/18 @ 07:05 by Robbie Rios MD) Community acquired pneumonia (Acute) Anxiety during (Acute) 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 CAP- medical mgt per hospitalist, on antibiotics d#3. continued improvement in respiratory effort, afebrile over 24 hours. 2. PPROM with Oligohydramnios- IVFs being given, ROM plus positive, d/w MFM, will obtain outpatient consultation on monday/monday with [facility] regarding managment. 3. previability- discussed with patient that PPROM this early will likely not be viable for , but will await outpatient consultation for decision. 4. asthma- mgt per hospitalist.
[2018-12-30] MEDS: Ceftriaxone 1 GM/50 ML BAG IV (23:00)
[2018-12-31] VITALS (11 sets, daily range): BP systolic 126–141; BP diastolic 83–95; PULSE 82–101; RESP 16–20; TEMP 36.5–36.8; O2SAT 95–98
[2018-12-31] MEDS: 0.9% Normal Saline 1,000 ML 100 ML IV ×2 (00:21→10:36)
[2018-12-31] MEDS: Ipratropium/Albuterol Sulfate 3 ML AMPUL.NEB INHALATION ×4 (02:20→14:31)
--- NOTE | 2018-12-31 09:36 | NURSING ---
0930: attempted to obtain FHR with ultrasound but unable to locate.
[2018-12-31] MEDS: Acetaminophen 325 MG Tablet 650 MG PO (09:37)
[2018-12-31] MEDS: guaiFENesin 1,200 MG Tablet 1200 MG PO (09:38)
[2018-12-31] MEDS: Ondansetron 4 MG/2 ML Vial IV (09:39)
[2018-12-31] MEDS: predniSONE 20 MG Tablet 40 MG PO (14:01)
--- NOTE | 2018-12-31 17:25 | DCINST_ITS ---
- Discharge Diagnoses Current Active Problems: Current Active and Chronic Problems (Last Reviewed 12/29/18 @ 07:05 by Robbie Rios MD) Community acquired pneumonia (Acute) You will use the following diet at home:: No restrictions Your food should be the consistency of: Regular Your liquids should be the consistency of: Regular/Thin Discharge Activity: - - Avoid exposure to any strong smells such as bleach, cleaning products, strong colognes or perfumes, paint fumes and smoke of any kind. Avoid sudden exposure to cold air because this can cause bronchospasm. You may want to cover your mouth when you go outside in the winter. Avoid exposure to anyone who is sick with a cough or sore throat. Call your doctor if you observe: Fever of 101 or Higher, Shortness of breath, Dizziness, Fainting spells, Chest pain, Increased palpitations (irregular heartbeat) Additional Instructions: 1. You tested + for rhinovirus which causes the common cold. The culture of the sputum grew only nthe normal bacteria that live in your mouth. You did have antibiotics prior to obtaining the sputum so this may be why the culture did not grow anything significant. You can continue the Cefuroxime you already have. People with asthma frequently have a lot of problems with wheezing when they get . You are using the inhaler at home at least once a day and now you are . You need to see a lung spcialist. I am referrig you to the pulmonary dept here at the hospital. Allergies/Adverse Reactions: Allergies prednisone Allergy (Mild, Verified 12/28/18 19:33) hallucinations Sulfa (Sulfonamide Antibiotics) Allergy (Mild, Verified 12/28/18 19:33) hives Medications to take at Discharge albuterol sulfate HFA 90 mcg/actuation aerosol inhaler 2 puff INHALATION Q6H PRN 11/19/18 Cefuroxime Axetil [Cefuroxime] 500 mg PO BID 12/28/18 Guaifenesin [Mucinex] 1,200 mg PO BID #20 tablet 12/31/18 Ipratropium/Albuterol Sulfate [Duoneb] 3 ml INHALATION Q4H #120 ampul.neb 12/31/18 Prednisone 10 mg PO UD #30 tab 12/31/18 The following prescriptions were given: Ipratropium/Albuterol Sulfate [Duoneb] 3 ml INHALATION Q4H #120 ampul.neb Prednisone 10 mg PO UD #30 tab Guaifenesin [Mucinex] 1,200 mg PO BID #20 tablet Primary Care Physician: Reymundo Doctor,Out of [Primary Care Provider] - Please follow up with your Primary Care Physician in: 3-5 days Test Results: Test results from this visit will be discussed in further detail at your follow- up appointment, if applicable. Please Follow Up With: Carlos Ruiz DO When: 1 week - OK to see Estephanie Ragsdale Discharge Date: 12/31/18
--- NOTE | 2018-12-31 17:31 | PCM.DC.SUM ---
Discharge Date and Diagnosis - Problem List Patient Problems: Active and Suspected Problems (Last Reviewed 12/29/18 @ 07:05 by Robbie Rios MD) Morbid obesity with BMI of 45.0-49.9, adult (Acute) Acute asthma exacerbation (Acute) Hyponatremia (Acute) Hypokalemia (Acute) Rhinovirus infection (Acute) Community acquired pneumonia (Acute) Date of Admission: 12/28/18 Date of Discharge: 12/31/18 - Primary Discharge Diagnosis Active and Suspected Problems (Last Reviewed 12/29/18 @ 07:05 by Robbie Rios MD) Acute asthma exacerbation (Acute) Hyponatremia (Acute) Hypokalemia (Acute) Rhinovirus infection (Acute) Community acquired pneumonia (Acute) Urinary tract infection-ruled out PPROM with oligohydramnios - Secondary Discharge Diagnosis Chronic Problems (Last Reviewed 12/29/18 @ 07:05 by Robbie Rios MD) 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 Findings are consistent with combination of pneumonia and atelectasis. Electronically Signed: Praful Shrestha MD at 21:48 EST , Service support , Obstetrics Ultrasound 12/28/18 22:52 IMPRESSION: Intrauterine gestation with sonographic age of 13 weeks 1 day. Cervix is closed. Positive cardiac activity. Low amniotic fluid volume. Normal placenta. Electronically Signed: Pedro Castellanos MD at 0:22 EST Tel , Service support , Microbiology 12/29/18 11:45 Sputum, Expectorated/Coughed Gram Stain - Final 12/29/18 11:45 Sputum, Expectorated/Coughed Respiratory Culture - Final Mixed normal respiratory maxi. No Streptococcus pneumoniae, beta-hemolytic Streptococcus or Staphylococcus aureus isolated. 12/28/18 20:50 Urine, Clean Catch Urine Culture - Final Culture exhibits no growth. 12/29/18 03:50 Mucosa - Nasopharyngeal Respiratory Panel (PCR) - Final Adenovirus 12/29/18 03:50 Mucosa - Nasopharyngeal Influenza Types A,B Direct FA (NASRIN) - Final 12/28/18 20:50 Urine, Clean Catch Streptococcus pneumoniae Antigen (M - Final 12/28/18 20:50 Urine, Clean Catch Legionella Antigen - Final Dr. Rita Sierra-[facility] Operations: None Procedures: None Summary of Care Provided: The patient is a 23 year old F with a past medical history of marijuana usage (quit when she found out she was ), chronic low back pain, IU 14 weeks gestation and asthma who presented to the ER at [facility] on 12/28/2018 complaining of a 5-day history of cough productive of yellow sputum, increased wheezing, shortness of breath, sore throat and N/V. Vital signs of presentation to the emergency room were temp 102.6, pulse rate 135, blood pressure 164/79, respiratory rate 24 and she was 91% saturated on room air. White blood cell count was 10.4 with 73% neutrophils. Hemoglobin was 12.1 and platelets were within normal limits. Sodium was decreased at 134 and the BUN was 6 with a creatinine of 0.67. Lactic acid was 1.7. She had been using both an Albuterol inhaler and Albuterol aerosols at home with no improvement. She was also taking Ceftin and Azithromycin which were started on 12/28. She tells me that she has never been on a steroid inhaler but, uses her inhaler at least once a day everyday and sometimes more. Chest x-ray at admission showed a right lower lobe infiltrate in the superior segment which extends into the hilum. Was admitted to the hospital and placed on azithromycin and Rocephin. DuoNeb was administered every 4 hours by the respiratory therapist and she had albuterol aerosol ordered as needed. Dr. Sierra was consulted because a obstetric ultrasound showed low amniotic fluid volume and the pt admitted that she had been leaking fluid several days....she thought it was urine when she coughed. She was not initially started on steroids but Prednisone 40 mg was later added when the wheezes/rhonchi failed to improve significantly. She was diagnosed with PPROM and oligohydramnios. An appt was scheduled for her on 01/01 to see a high risk INTEGRATION DEVELOPER. Legionella and streptococcal antigens in the urine were negative. Respiratory panel was positive for adenovirus. Sputum culture had normal respiratory maxi. A blood culture is pending at the time of discharge but to date has been negative. She became afebrile on 12/30/2018 at about 3:30 AM. On 12/31/2018 she was afebrile with stable vital signs. Pulse ox on room air at rest was 96-97% with a respiratory rate of 18-20. With ambulation the pulse ox dropped to 94% and the patient felt somewhat short of breath. She asked to be discharged so she could make her appt at 10AM on 01/01. She was given RX's for a steroid taper, Mucinex and duoneb aerosol soln. She will follow up with her PCP in 3-5 days. She was referred to the pulmonary Clinic and I spoke to Estephanie Rowe the PA in pulmonary and she will be able to see her next week. General: Alert, oriented ?3, cooperative, pleasant and appropriate Neck: Supple, trachea midline, no enlarged cervical nodes, no enlarged supraclavicular nodes Lungs: Coarse rhonchi throughout, no rales, symmetric chest expansion, not tachypneic at rest, no conversational dyspnea, no accessory muscle use Heart: Regular rate and rhythm, normal S1, normal S2, no murmur, no gallop, no rub Abdomen: Soft, NT, ND, bowel sounds present Extremities: No clubbing, no peripheral edema, no cyanosis This note was generated with [employer] dictation software. It may contain incorrect words, spelling, and punctuation that were not noted in checking the note before signing. Patient Problems: Active and Suspected Problems (Last Reviewed 12/29/18 @ 07:05 by Robbie Rios MD) Morbid obesity with BMI of 45.0-49.9, adult (Acute) Acute asthma exacerbation (Acute) Hyponatremia (Acute) Hypokalemia (Acute) Rhinovirus infection (Acute) Community acquired pneumonia (Acute) - Physical Exam Vital Signs Temp Pulse Resp BP Pulse Ox 97.7 F L 98 20 H 126/93 H 96 12/31/18 14:03 12/31/18 14:31 12/31/18 14:31 12/31/18 14:03 12/31/18 14:03 Oxygen Delivery Method Room Air Weight: 219 lb 12.814 oz Body Mass Index (BMI) 45.9 Intake and Output for Last 24 Hours 12/29/18 12/30/18 12/31/18 22:59 23:59 23:59 Intake Total 2055 / 2055 Output Total 1100 / 1100 Balance 955 / 955 Microbiology Past 72 Hours 12/29/18 11:45 Gram Stain - Final Sputum, Expectorated/Coughed Respiratory Culture - Final Mixed normal respiratory maxi. No Streptococcus pneumoniae, beta-hemolytic Streptococcus or Staphylococcus aureus isolated. 12/28/18 20:50 Urine Culture - Final Urine, Clean Catch Culture exhibits no growth. 12/29/18 03:50 Respiratory Panel (PCR) - Final Mucosa - Nasopharyngeal Adenovirus 12/29/18 03:50 Influenza Types A,B Direct FA (NASRIN) - Final Mucosa - Nasopharyngeal 12/28/18 20:50 Streptococcus pneumoniae Antigen (M - Final Urine, Clean Catch 12/28/18 20:50 Legionella Antigen - Final Urine, Clean Catch Discharge Activity: - - Avoid exposure to any strong smells such as bleach, cleaning products, strong colognes or perfumes, paint fumes and smoke of any kind. Avoid sudden exposure to cold air because this can cause bronchospasm. You may want to cover your mouth when you go outside in the winter. Avoid exposure to anyone who is sick with a cough or sore throat. Call your doctor if you observe: Fever of 101 or Higher, Shortness of breath, Dizziness, Fainting spells, Chest pain, Increased palpitations (irregular heartbeat) Home Medications: Medications to take at Discharge albuterol sulfate HFA 90 mcg/actuation aerosol inhaler 2 puff INHALATION Q6H PRN 11/19/18 Cefuroxime Axetil [Cefuroxime] 500 mg PO BID 12/28/18 Guaifenesin [Mucinex] 1,200 mg PO BID #20 tablet 12/31/18 Ipratropium/Albuterol Sulfate [Duoneb] 3 ml INHALATION Q4H #120 ampul.neb 12/31/18 Prednisone 10 mg PO UD #30 tab 12/31/18 Following Prescrptions Were Given to Patient: Ipratropium/Albuterol Sulfate [Duoneb] 3 ml INHALATION Q4H #120 ampul.neb Prednisone 10 mg PO UD #30 tab Guaifenesin [Mucinex] 1,200 mg PO BID #20 tablet Primary Care Physician: Reymundo Doctor,Out of [Primary Care Provider] - Please follow up with your Primary Care Physician in: 3-5 days Please Follow Up With: Carlos Ruiz DO When: 1 week - OK to see Estephanie Disposition: Home Minutes spent on discharge:: 35 Patient Condition:: Stable Medical Necessity - Tobacco Use Smoking Status: Former smoker Tobacco Use: Non-smoker Meaningful Use Info Meaningful Use Diagnoses (Choose all that apply): None applicable Code Visit Inpatient E&M: 19503 Disch Hosp
--- NOTE | 2018-12-31 17:35 | DS.PCM_ITS ---
Discharge Date and Diagnosis - Problem List Patient Problems: Active and Suspected Problems (Last Reviewed 12/29/18 @ 07:05 by Robbie Rios MD) Morbid obesity with BMI of 45.0-49.9, adult (Acute) Acute asthma exacerbation (Acute) Hyponatremia (Acute) Hypokalemia (Acute) Rhinovirus infection (Acute) Community acquired pneumonia (Acute) Date of Admission: 12/28/18 Date of Discharge: 12/31/18 - Primary Discharge Diagnosis Active and Suspected Problems (Last Reviewed 12/29/18 @ 07:05 by Robbie Rios MD) Acute asthma exacerbation (Acute) Hyponatremia (Acute) Hypokalemia (Acute) Rhinovirus infection (Acute) Community acquired pneumonia (Acute) Urinary tract infection-ruled out PPROM with oligohydramnios - Secondary Discharge Diagnosis Chronic Problems (Last Reviewed 12/29/18 @ 07:05 by Robbie Rios MD) 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 Findings are consistent with combination of pneumonia and atelectasis. Electronically Signed: Praful Shrestha MD at 21:48 EST , Service support , Obstetrics Ultrasound 12/28/18 22:52 IMPRESSION: Intrauterine gestation with sonographic age of 13 weeks 1 day. Cervix is closed. Positive cardiac activity. Low amniotic fluid volume. Normal placenta. Electronically Signed: Pedro Castellanos MD at 0:22 EST Tel , Service support , Microbiology 12/29/18 11:45 Sputum, Expectorated/Coughed Gram Stain - Final 12/29/18 11:45 Sputum, Expectorated/Coughed Respiratory Culture - Final Mixed normal respiratory maxi. No Streptococcus pneumoniae, beta-hemolytic Streptococcus or Staphylococcus aureus isolated. 12/28/18 20:50 Urine, Clean Catch Urine Culture - Final Culture exhibits no growth. 12/29/18 03:50 Mucosa - Nasopharyngeal Respiratory Panel (PCR) - Final Adenovirus 12/29/18 03:50 Mucosa - Nasopharyngeal Influenza Types A,B Direct FA (NASRIN) - Final 12/28/18 20:50 Urine, Clean Catch Streptococcus pneumoniae Antigen (M - Final 12/28/18 20:50 Urine, Clean Catch Legionella Antigen - Final Dr. Rita Sierra-[facility] Operations: None Procedures: None Summary of Care Provided: The patient is a 23 year old F with a past medical history of marijuana usage (quit when she found out she was ), chronic low back pain, IU 14 weeks gestation and asthma who presented to the ER at [facility] on 12/28/2018 complaining of a 5-day history of cough productive of yellow sputum, increased wheezing, shortness of breath, sore thr oat and N/V. Vital signs of presentation to the emergency room were temp 102.6, pulse rate 135, blood pressure 164/79, respiratory rate 24 and she was 91% saturated on room air. White blood cell count was 10.4 with 73% neutrophils. Hemoglobin was 12.1 and platelets were within normal limits. Sodium was decreased at 134 and the BUN was 6 with a creatinine of 0.67. Lactic acid was 1.7. She had been using both an Albuterol inhaler and Albuterol aerosols at home with no improvement. She was also taking Ceftin and Azithromycin which were started on 12/28. She tells me that she has never been on a steroid inhaler but, uses her inhaler at least once a day everyday and sometimes more. Chest x- ray at admission showed a right lower lobe infiltrate in the superior segment which extends into the hilum. Was admitted to the hospital and placed on azithromycin and Rocephin. DuoNeb was administered every 4 hours by the respiratory therapist and she had albuterol aerosol ordered as needed. Dr. Sierra was consulted because a obstetric ultrasound showed low amniotic fluid volume and the pt admitted that she had been leaking fluid several days....she thought it was urine when she coughed. She was not initially started on steroids but Prednisone 40 mg was later added when the wheezes/rhonchi failed to improve significantly. She was diagnosed with PPROM and oligohydramnios. An appt was scheduled for her on 01/01 to see a high risk HEARING AID MECHANIC. Legionella and streptococcal antigens in the urine were negative. Respiratory panel was positive for adenovirus. Sputum culture had normal respiratory maxi. A blood culture is pending at the time of discharge but to date has been negative. She became afebrile on 12/30/2018 at about 3:30 AM. On 12/31/2018 she was afebrile with stable vital signs. Pulse ox on room air at rest was 96-97% with a respiratory rate of 18-20. With ambulation the pulse ox dropped to 94% and the patient felt somewhat short of breath. She asked to be discharged so she could make her appt at 10AM on 01/01. She was given RX's for a steroid taper, Mucinex and duoneb aerosol soln. She will follow up with her PCP in 3-5 days. She was referred to the pulmonary Clinic and I spoke to Estephanie Rowe the PA in pulmonary and she will be able to see her next week. General: Alert, oriented ?3, cooperative, pleasant and appropriate Neck: Supple, trachea midline, no enlarged cervical nodes, no enlarged supraclavicular nodes Lungs: Coarse rhonchi throughout, no rales, symmetric chest expansion, not tachypneic at rest, no conversational dyspnea, no accessory muscle use Heart: Regular rate and rhythm, normal S1, normal S2, no murmur, no gallop, no rub Abdomen: Soft, NT, ND, bowel sounds present Extremities: No clubbing, no peripheral edema, no cyanosis This note was generated with [employer] dictation software. It may contain incorrect words, spelling, and punctuation that were not noted in checking the note before signing. Patient Problems: Active and Suspected Problems (Last Reviewed 12/29/18 @ 07:05 by Robbie Rios MD) Morbid obesity with BMI of 45.0-49.9, adult (Acute) Acute asthma exacerbation (Acute) Hyponatremia (Acute) Hypokalemia (Acute) Rhinovirus infection (Acute) Community acquired pneumonia (Acute) - Physical Exam Vital Signs Temp Pulse Resp BP Pulse Ox 97.7 F L 98 20 H 126/93 H 96 03/11/19 14:03 12/31/18 14:31 12/31/18 14:31 12/31/18 14:03 12/31/18 14:03 Oxygen Delivery Method Room Air Weight: 219 lb 12.814 oz Body Mass Index (BMI) 45.9 Intake and Output for Last 24 Hours 12/29/18 12/30/18 12/31/18 22:59 23:59 23:59 Intake Total 2055 / 2055 Output Total 1100 / 1100 Balance 955 / 955 Microbiology Past 72 Hours 12/29/18 11:45 Gram Stain - Final Sputum, Expectorated/Coughed Respiratory Culture - Final Mixed normal respiratory maxi. No Streptococcus pneumoniae, beta-hemolytic Streptococcus or Staphylococcus aureus isolated. 12/28/18 20:50 Urine Culture - Final Urine, Clean Catch Culture exhibits no growth. 12/29/18 03:50 Respiratory Panel (PCR) - Final Mucosa - Nasopharyngeal Adenovirus 12/29/18 03:50 Influenza Types A,B Direct FA (NASRIN) - Final Mucosa - Nasopharyngeal 12/28/18 20:50 Streptococcus pneumoniae Antigen (M - Final Urine, Clean Catch 12/28/18 20:50 Legionella Antigen - Final Urine, Clean Catch Discharge Activity: - - Avoid exposure to any strong smells such as bleach, cleaning products, strong colognes or perfumes, paint fumes and smoke of any kind. Avoid sudden exposure to cold air because this can cause bronchospasm. You may want to cover your mouth when you go outside in the winter. Avoid exposure to anyone who is sick with a cough or sore throat. Call your doctor if you observe: Fever of 101 or Higher, Shortness of breath, Dizziness, Fainting spells, Chest pain, Increased palpitations (irregular heartbeat) Home Medications: Medications to take at Discharge albuterol sulfate HFA 90 mcg/actuation aerosol inhaler 2 puff INHALATION Q6H PRN 11/19/18 Cefuroxime Axetil [Cefuroxime] 500 mg PO BID 12/28/18 Guaifenesin [Mucinex] 1,200 mg PO BID #20 tablet 12/31/18 Ipratropium/Albuterol Sulfate [Duoneb] 3 ml INHALATION Q4H #120 ampul.neb 12/31/18 Prednisone 10 mg PO UD #30 tab 12/31/18 Following Prescrptions Were Given to Patient: Ipratropium/Albuterol Sulfate [Duoneb] 3 ml INHALATION Q4H #120 ampul.neb Prednisone 10 mg PO UD #30 tab Guaifenesin [Mucinex] 1,200 mg PO BID #20 tablet Primary Care Physician: Reymundo Doctor,Out of [Primary Care Provider] - Please follow up with your Primary Care Physician in: 3-5 days Please Follow Up With: Carlos Ruiz DO When: 1 week - OK to see Estephanie Disposition: Home Minutes spent on discharge:: 35 Patient Condition:: Stable Medical Necessity - Tobacco Use Smoking Status: Former smoker Tobacco Use: Non-smoker Meaningful Use Info Meaningful Use Diagnoses (Choose all that apply): None applicable Code Visit Inpatient E&M: 88012 Disch Hosp
[2019-01-01 11:06] LABS: Mycoplasma Pneum AB IgG 406 U/mL (0-99); Mycoplasma pneum. AB IgM < 770 U/mL (0-769)
== END 2018-12-31 18:41 | disposition home or self-care (01) | DRG 831 ==
LOC: ED 22:11 → MS3 12-29 01:04
PROVIDERS: Obstetrics & Gynecology; Admitting Provider Internal Medicine; Emergency Provider Emergency Medicine; Referring Provider Hospitalist; Visit Provider Internal Medicine
DX: O98.812 Other maternal infectious and parasitic diseases complicating pregnancy, second trimester (principal); A41.9 Sepsis, unspecified organism; J18.9 Pneumonia, unspecified organism; J45.901 Unspecified asthma with (acute) exacerbation; E87.1 Hypo-osmolality and hyponatremia; O42.912 Preterm premature rupture of membranes, unspecified as to length of time between rupture and onset of labor, second trimester; O99.512 Diseases of the respiratory system complicating pregnancy, second trimester; Z3A.14 14 weeks gestation of pregnancy; J20.8 Acute bronchitis due to other specified organisms; B97.0 Adenovirus as the cause of diseases classified elsewhere; O99.212 Obesity complicating pregnancy, second trimester; E66.01 Morbid (severe) obesity due to excess calories; O99.282 Endocrine, nutritional and metabolic diseases complicating pregnancy, second trimester; E87.6 Hypokalemia; Z87.891 Personal history of nicotine dependence
CPT/HCPCS: 36415; 71046; 76817; 80048; 81001; 83605; 84112; 85025; 86738; 87040; 87070; 87086; 87205; 87449; 87633; 87804; 93005; 94640; 94667; 94668; 97802; 99284; J7030; J7040; A4216; J2405

== ENCOUNTER 2019-01-01 13:15 | Inpatient (IN) | payer OTHER, SELFPAY ==
[2018-12-29 01:42] VITALS: BMI 45.9
[2019-01-01 13:37] VITALS: BMI 47.8
[2019-01-01 14:26] LABS: Hemoglobin A1c 5.8 % (4.2-6.3)
[2019-01-01 14:54] VITALS: PULSE 100; RESP 20
[2019-01-01] MEDS: Ipratropium/Albuterol Sulfate 3 ML AMPUL.NEB INHALATION ×2 (14:54→18:45)
[2019-01-01] MEDS: miSOPROStol 200 MCG Tablet 800 MCG VAGINAL (15:03)
[2019-01-01 15:11] LABS: Hematocrit 32.6 % (37-47); Hemoglobin 10.7 g/dl (12.0-15.0); Mean Corp Hgb Conc 32.8 g/gl (32-36); Mean Corpuscular Hgb 28.5 pg (27.0-32.0); Mean Corpuscular Volume 86.7 fL (81-99); Mean Platelet Vol. 9.7 fl (6.2-12.0); Platelet Count 374 K/mm3 (150-450); RBC Distribution Width CV 14.6 % (11.6-14.6); RBC Distribution Width SD 46.2 fl (35.1-43.9); Red Blood Count 3.76 M/mm3 (4.2-5.4)
[2019-01-01 15:13] LABS: Scan Indicated on CBC? Y/N NO
--- NOTE | 2019-01-01 16:04 | PCM.CONS.GEN ---
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 (10) Status: Acute Qualifiers: Comment: carrier, genetic, ntd screening declined. 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 Patient still has wheezing. Chest x-ray on 12/28/2018 showed prominent opacification of right lower lobe extending to involve into the right hilum consistent with combination of pneumonia and atelectasis. She was initially started on Rocephin and Zithromax and then discontinued for prevention of viral bronchitis and pneumonia [facility] of miscarriage/, 15 weeks old. Patient vital signs are stable, blood pressure 133/78, temperature 97 Fahrenheit, pulse 105. 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 Asthma (Chronic) J45.909 uses albuterol PRN Allergies Sulfa (Sulfonamide Antibiotics) Allergy (Mild, Verified 01/01/19 13:50) Rash Home Medications: Ambulatory Orders Medication Instructions Recorded albuterol sulfate HFA 90 2 puff INHALATION Q6H PRN 11/19/18 mcg/actuation aerosol inhaler Cefuroxime Axetil [Cefuroxime] 500 mg PO BID 12/28/18 Guaifenesin [Mucinex] 1,200 mg PO BID 01/01/19 Ipratropium/Albuterol Sulfate 3 ml INHALATION Q4H 01/01/19 [Duoneb] Prednisone 10 mg PO UD 01/01/19 Surgical History: Surgical History (Last Reviewed 12/07/18 @ 09:01 by Kaylie Carey) History of tonsillectomy and adenoidectomy Z98.890 [place] teeth removed K08.409 Smoking Status: Former smoker - *Family History Paternal Family History: Family History (Last Reviewed 12/07/18 @ 09:01 by Kaylie Carey) Mother Hypertension Aunt Diabetes Uncle Diabetes Review of Systems Constitutional: Denies: Chills, Fever, Weight Change HEENT: Denies: Head Aches, Sinus Congestion, Sinus Drainage Cardiovascular: Reports: Chest Tightness. Denies: Chest Pain, Palpitations Respiratory: Reports: Cough, Shortness of breath upon exertion, Wheezing. Denies: Shortness of breath at rest, Sputum production Gastrointestinal: Reports: - - Miscarriage. Denies: Nausea, Vomiting Genitourinary: Denies: Dysuria, Frequency, Hematuria Musculoskeletal: Denies: Joint Pain, Joint Tenderness Skin: Denies: Rash, Wounds Neurological: Denies: Numbness, Tingling, Focal weakness Psychiatric: Denies: Anxiety, Depression, Homicidal Ideations, Suicidal Ideations Hematologic/ Lymphatic: Denies: Easy Bruising, Easy Bleeding - Physical Exam General: Alert, Oriented x3, Cooperative HEENT: Atraumatic, PERRLA, EOMI, Normocephalic Neck: Supple, No JVD, Negative Carotid Bruits Lungs: Diminished - Air entry diminished bilaterally, Tachypneic, Wheezes Cardiovascular: Regular rate, Regular Rhythm, Normal S1, Normal S2, No murmurs Abdomen: Bowel Sounds Present, Soft, - - 15 weeks miscarriage. On induction of labor Extremities: No edema, Capillary Refill Less than 3 Seconds Skin: No rashes, No breakdown Musculoskeletal: No Tenderness to Palpation of Joints or Extremities Lymphatic: No Cervical, Supraclavicular, or Inguinal Adenopathy Neurological: Cranial nerves II-XII grossly intact, Deep Tendon Reflexes 2+/4 and Symmetrical, Neuro grossly intact Psych/Mental Status: Normal Affect, Appropriate Vital Signs Pulse Resp 100 20 H 01/01/19 14:54 01/01/19 14:54 Weight: 229 lb Body Mass Index (BMI) 47.8 Laboratory Tests Past 24 Hrs 01/01/19 01/01/19 01/01/19 13:45 13:45 13:45 WBC 22.0 H RBC 3.76 L Hgb 10.7 L Hct 32.6 L MCV 86.7 MCH 28.5 MCHC 32.8 RDW 14.6 RDW Differential 46.2 H Plt Count 374 MPV 9.7 Hemoglobin A1c 5.8 Blood Type Pending Antibody Screen Pending Assessment/Plan All Active Problems (Last Reviewed 12/29/18 @ 07:05 by Robbie Rios MD) Acute asthma exacerbation (Acute) Hyponatremia (Resolved) Hypokalemia (Resolved) Rhinovirus infection (Acute) Community acquired pneumonia (Acute) Anxiety during (Acute) Obesity affecting (Acute) (Acute) Supervision of high risk , antepartum (Acute) The patient is a 23 year old F with 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 Patient still has wheezing. Chest x-ray on 12/28/2018 showed prominent opacification of right lower lobe extending to involve into the right hilum consistent with combination of pneumonia and atelectasis. She was initially started on Rocephin and Zithromax and then discontinued for prevention of viral bronchitis and pneumonia She [facility] being [facility] of miscarriage/, 15 weeks old. Patient vital signs are stable, blood pressure 133/78, temperature 97 Fahrenheit, pulse 105. 1. Acute asthma exacerbation secondary to viral bronchitis/right lower lobe viral community-acquired pneumonia: The [facility]. Started on DuoNeb q. 4 hourly. Continue doxycycline. Patient is on prednisone 40 mg daily. 1 dose Solu-Medrol 60 mg ordered. Rest of the viral bronchitis workup has already been completed as mentioned above. Repeat the chest x-ray portable. 2. 15 weeks miscarriage/: As per Dr. Sierra. DVT prophylaxis: Bilateral SCDs. Code Visit Inpatient E&M: 14320 Init Hosp L2
--- NOTE | 2019-01-01 16:12 | RAD_ITS ---
STUDY: X-RAY CHEST REASON FOR EXAM: Female, 23 years old. Follow-up pneumonia TECHNIQUE: Single frontal view of the chest. COMPARISON: December 28, 2018 FINDINGS: Again noted right lower lobe opacity extending to the right hilum. The left lung remains clear. No pneumothorax. No pleural effusion. Normal size heart. Normal mediastinum and jerry. Normal visualized pulmonary arteries. Normal visualized aortic arch and descending thoracic aorta. Normal visualized thoracic spine. Normal visualized ribs, clavicles, and shoulders. There is no demonstrated abnormality of the visualized soft tissue structures of the upper abdomen. RAD/Chest 1 View (Portable) IMPRESSION: Again noted right lower lobe opacification with extension into the right hilar region. Findings would be concerning for pneumonia. Appears to be slight improvement compared to prior radiograph. Recommend follow-up to ensure resolution. Electronically Signed: Kin Amado, at 7:26 EDT Tel , Service support ,
[2019-01-01] MEDS: Doxycycline 100 MG CAPSULE PO (16:17)
[2019-01-01] MEDS: 0.9% Saline Lock 10 ML Syringe IV (16:55)
[2019-01-01] MEDS: Lactated Ringers 1,000 ML 50 ML IV (17:25)
[2019-01-01] MEDS: Nalbuphine 10 MG/ML Ampul IV ×2 (17:26→20:25)
[2019-01-01] MEDS: miSOPROStol 200 MCG Tablet 400 MCG VAGINAL ×2 (19:01→23:11)
[2019-01-01 19:45] VITALS: PULSE 88; RESP 16; O2SAT 96
[2019-01-01] MEDS: oxyCODONE 5 MG Tablet PO (21:13)
[2019-01-01] MEDS: guaiFENesin 1,200 MG Tablet 1200 MG PO (21:58)
[2019-01-01] MEDS: HYDROmorphone 0.5 MG/0.5 ML SYRINGE IV (22:02)
--- NOTE | 2019-01-01 23:01 | PCM.HP.OB ---
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 (11) Status: Acute Qualifiers: Comment: carrier, genetic, ntd screening declined. 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 She has been leaking fluid for the last week, and had confirmed ROM when she was admitted to the hospital over the weekend for viral pneumonia and asthma exacerbation. She has not had any fevers since the end of last week however today she developed uterine tenderness and a leukocytosis of 22. She maternal- medicine consult with Dr. Kim Vilchis today and different options were discussed and the decision for induction of labor was made. 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 Asthma (Chronic) J45.909 uses albuterol PRN Surgical History: Surgical History (Last Reviewed 12/07/18 @ 09:01 by Kaylie Carey) History of tonsillectomy and adenoidectomy Z98.890 [place] teeth removed K08.409 Allergies Sulfa (Sulfonamide Antibiotics) Allergy (Mild, Verified 01/01/19 13:50) Rash Home Medications: Home Medications albuterol sulfate HFA 90 mcg/actuation aerosol inhaler 2 puff INHALATION Q6H PRN 11/19/18 Cefuroxime Axetil [Cefuroxime] 500 mg PO BID 12/28/18 Guaifenesin [Mucinex] 1,200 mg PO BID 01/01/19 Ipratropium/Albuterol Sulfate [Duoneb] 3 ml INHALATION Q4H 01/01/19 Prednisone 10 mg PO UD 01/01/19 Smoking Status: Former smoker Alcohol: None Substance Use Type: Marijuana Number of Fetus(es): 1 Heart Tracin History Past Pregnancies: Past Pregnancies Delivery Date Name GA/Weeks Outcome Route Weight Infant Gender Labor Length Anesthesia Delivery Location Provider FOB Labs: Mom's Labs & Results 01/01/19 01/01/19 01/01/19 13:45 13:45 13:45 WBC 22.0 H RBC 3.76 L Hgb 10.7 L Hct 32.6 L MCV 86.7 MCH 28.5 MCHC 32.8 RDW 14.6 RDW Differential 46.2 H Plt Count 374 MPV 9.7 Hemoglobin A1c 5.8 Blood Type O POSITIVE Antibody Screen NEGATIVE Course Did the patient receive Yes care? Labs HIV/AIDS Non-Reactive Current Obstetrical History Gestational Diabetes No Incompetent Cervix No Infertility No IUGR No Macrosomia No Hypertension/Pre-eclampsia No Placenta Previa/Abruption No PTL/PROM Yes Uterine anomaly No Oligohydramnios No Polyhydramnios No Multiple gestation No Past Medical History Asthma Yes Diabetes No Hypertension No Heart disease No Mitral valve prolapse No Neurologic/Seizure disorder/ Yes Migraines Kidney disease No Liver disease No Varicosities No Clotting disorders/Hx of DVT No Thyroid Dysfunction No Other medical diseases No Psychiatric disorders Yes: anxiety Major trauma No Abnormal PAP smear No Sleep apnea No Mammogram in the last 2 years No Social History Marital Status: SINGLE Alleged father Duncan Hx Smoking Yes Smoking Status Former smoker Substance Use Type Marijuana What date/time did you last when found out she was use any of the above? Expected Infant Delivery Method: Spontaneous Vaginal Review of Systems Constitutional: Denies: Fever, Malaise Eyes: Denies: Blurred vision, Vision Change HEENT: Denies: Head Aches, Visual Changes Cardiovascular: Denies: Chest Pain, Palpitations Respiratory: Reports: Cough, Shortness of Breath, Wheezing Gastrointestinal: Reports: Abdominal Pain, Nausea. Denies: Diarrhea, Vomiting Genitourinary: Denies: Dysuria, Hematuria Musculoskeletal: Denies: Joint Pain, Muscle pain Skin: Denies: Lesions, Rash Neurological: Denies: Blurred vision, Focal weakness, Headaches Psychiatric: Denies: Anxiety, Depression Endocrine: Denies: Heat/ Cold Intolerance Hematologic/ Lymphatic: Denies: Easy Bruising, Easy Bleeding Physical Exam Vitals: Vital Signs Pulse Resp Pulse Ox 88 16 96 01/01/19 19:45 01/01/19 19:45 01/01/19 19:45 General: Alert, Cooperative, No apparent distress HEENT: Atraumatic, Normocephalic. Negative for: Thyromegaly, Lymphadenopathy Cardiovascular: Regular rate Lungs: Diminished, Wheezes Abdomen: Soft, Non Tender, Gravid Neurological: Deep Tendon Reflexes 2+/4 and Symmetrical, Neuro grossly intact. Negative for: Clonus BUILDING ATTENDANT: Normal external genitalia. Negative for: Vulvar lesions Estimated gestational size: Appropriate for gestational size Cervix Dilation (cm): 0 Assessment/Plan All Active Problems (Last Reviewed 12/29/18 @ 07:05 by Robbie Rios MD) premature rupture of membranes (PPROM) delivered, current hospitalization (Acute) Chorioamnionitis (Acute) Acute asthma exacerbation (Acute) Hyponatremia (Resolved) Hypokalemia (Resolved) Rhinovirus infection (Acute) Community acquired pneumonia (Acute) Anxiety during (Acute) Obesity affecting (Acute) (Acute) Supervision of high risk , antepartum (Acute) This is a 23 year-old, G 1P0 at 14 weeks 5 days gestational age presents with PPROM and chorioamnionitis. Plan induction of labor with Cytotec, emotional support given. Started ampicillin and gentamicin for infection. She declines genetic studies. Hemoglobin A1c sent and normal. Consult hospitalist for management of recent pneumonia and asthma exacerbation.
[2019-01-02] VITALS (10 sets, daily range): BP systolic 114–150; BP diastolic 67–93; PULSE 68–110; RESP 16–20; TEMP 36.2–37.1; O2SAT 92–99; BMI 47.8
[2019-01-02] MEDS: HYDROmorphone 0.5 MG/0.5 ML SYRINGE IV ×2 (00:06→00:43)
[2019-01-02] MEDS: Oxytocin 30 units/NS 500 ml 30 UNITS/500 ML IV.SOLN 334 UNITS IV (00:13)
--- NOTE | 2019-01-02 00:28 | NURSING ---
Dr Sierra verbally updated about pt's c/o of increased pain, rating 10/10, crying out and restlessness in bed. SM questioned about continued use of pitocin w/ possible cytotec still in effect. Verbal order given: Ok to SL pt at this time and dc pitocin.
--- NOTE | 2019-01-02 00:28 | PCM.OB.VAG ---
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 (11) Status: Acute Qualifiers: Comment: carrier, genetic, ntd screening declined. 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 (14) Asthma Status: Chronic Qualifiers: Comment: uses albuterol PRN (15) Chorioamnionitis Status: Acute Vaginal Delivery Maternal Presentation: Medically Indicated Induction iol chorioamnionitis and PPROM previable Method of Induction: Cytotec Amniotic Membrane Rupture Type: Spontaneous at home Amniotic Fluid Description: Clear Final ELVIA: 06/27/19 Gestational age: 14 Weeks and 6 Days Date of Procedure: 01/02/19 Pre-Operative Diagnosis: iol pprom chorioamnionitis Post-Operative Diagnosis: same Surgery/ Procedure Performed: Spontaneous Vaginal Delivery Type of Anesthesia: None Description of Procedure: Patient was induced with Cytotec and due to a leukocytosis that was increased from previous and uterine tenderness she was treated with antibiotics however she had been afebrile. After 12 hours of Cytotec patient delivered spontaneously and the fetus was evaluated and noted to be with no heart rate present or other signs of life. No gross abnormalities were noted and the and was noted to be male. Placenta delivered spontaneously immediately following was noted to be intact. The cord was too small to be able to tell if it was a 2 or 3 vessel cord. EBL was 50 cc. Patient tolerated delivery well without complication. Patient is receiving additional dose of ampicillin right now and has not had any fevers since admission. Presentation: Vertex Placental Delivery Description: Spontaneous Placenta [facility] Cord Entanglement: None Estimated Blood Loss: 50 Infant A gender: Male (1 minute): 0 (5 minute): 0 Episiotomy Description: None Laceration: None Medications given after delivery: IV Pitocin Complications: None
--- NOTE | 2019-01-02 00:32 | PLAC_PTH ---
PATIENT: LYRIC WALLACE LOC: [facility] U#:[id number] AGE/SX: 23/F ROOM: WP021 RE01/01/[address]: Dr. Rita Sierra MD : 1995 BED: 1 DIS: 01/02/2019 SPEC #: [id number] RECD: 01/02/19 02:53 STATUS: JANUSZ REMahad #: [id number] JAVID: 01/02/19 00:[address]: Rita Sierra DEPT: SURGICAL PATHOLOGY RECD BY: Georges Mg ENTERED: 01/02/19 12:34 SP TYPE: PLACENTA OTHR DR: Out of [facility] Doctor Tissues: Placenta, NOS Procedures: Surgery Specimen Level V HEADER OPERATION: Vaginal delivery PRE-OP DIAGNOSIS: PPROM 15 weeks TISSUE SUBMITTED: Placenta MICROSCOPIC DIAGNOSIS Immature placenta (29 gm): Umbilical cord - trivascular with no pathologic change. Placental membranes - no pathologic change. No evidence of inflammation. Placental disc - mild intervillous congestion. AM:daniel 01/03/19 MICROSCOPIC DESCRIPTION Slides are reviewed. GROSS DESCRIPTION SPECIMEN: PLACENTA / CLINICAL INFORMATION: A. Weight: Unavailable B. Gestational Age: 14 weeks C. Sex: Male PLACENTAL WEIGHT (POST FIXATION): 29 gm PLACENTAL DIMENSIONS: 6 x 5 x 1.5 cm PLACENTAL SHAPE: Usual ovoid PLACENTAL WEIGHT FOR GESTATIONAL AGE: Within 10-99th percentile (over/under percentile) MEMBRANES - Present. A very small amount of membranes are noted. A. Insertion: Marginal B. Site of rupture from edge: At edge of placental disc C. Color of membrane: Stanley-gardiner D. Abnormalities: None UMBILICAL CORD - Present A. Color: Stanley-gardiner B. Insertion: Marginal. A clamp is also noted at the end of the umbilical cord. C. Length: 8 cm D. Diameter: 0.2 cm E. Number of vessels: Three F. Abnormalities: None PLACENTAL DISC - Present A. Color of surface: Stanley-gardiner B. surface abnormalities: None C. Maternal cotyledons: Intact with minimal tears. A small amount of blood clot is noted on the maternal surface. D. Attached retro placental clot: No clot E. Cut surface: Dark red and spongy F. Lesions: None G. Separate clot: Absent SECTIONS SUBMITTED: 1. Membrane roll 2. Cord, end in black to be sectioned at the time of embedding 3. Placental disc, and maternal surfaces, area covered with blood clot on the maternal surface 4. Placental disc, and maternal surfaces 5. Placental disc, and maternal surfaces MISAEL:daniel 01/02/19 TC:5 CPT: 68707
--- NOTE | 2019-01-02 00:34 | PCM.DCVAG ---
Discharge Diet: No Restrictions Discharge Activity: Return to Normal Activity, May not drive while taking narcotic pain medications., May Shower May resume sexual activity in: 4-6 weeks Call your doctor if your incision/area has: Continuous Slow Oozing, Sudden Increased Bleeding, Increased Pain/ Swelling, Increased Redness, Foul Smelling Discharge Additional Instructions: If you experience any of the following, contact your healthcare provider. Bleeding that soaks a pad every hour for 2 hours Fever 100.4 or higher Unrelieved incision or abdominal pain Swelling, redness, discharge or bleeding from your incision or episiotomy site Your incision begins to separate Problems urinating (including inability to urinate or burning while urinating). Visual changes Severe headache Flu-like symptoms Pain or redness in one of both of your breasts Pain, warmth, tenderness or swelling in your legs, especially the calf area Frequent nausea and vomiting Symptoms of depression or anxiety If you experience any of the following, call 911 or go to the nearest Emergency Room. Chest pain Problems breathing Seizure activity Partial or complete paralysis of a body part, slurred speech, weakness or drooping of the face, or a sudden inability to walk or hold your balance Allergies/Adverse Reactions: Allergies Sulfa (Sulfonamide Antibiotics) Allergy (Mild, Verified 01/01/19 13:50) Rash Medications to take at Discharge albuterol sulfate HFA 90 mcg/actuation aerosol inhaler 2 puff INHALATION Q6H PRN 11/19/18 Cefuroxime Axetil [Cefuroxime] 500 mg PO BID 12/28/18 Guaifenesin [Mucinex] 1,200 mg PO BID 01/01/19 Ipratropium/Albuterol Sulfate [Duoneb] 3 ml INHALATION Q4H 01/01/19 Prednisone 10 mg PO UD 01/01/19 Please Follow Up With: Rita Sierra MD - [phone] When: Call to make an appointment with your doctor in 4 weeks. Primary Care Physician: Reymundo Grady,Out of [Primary Care Provider] - Test Results: Test results from this visit will be discussed in further detail at your follow-up appointment, if applicable.
--- NOTE | 2019-01-02 00:35 | DCINST_ITS ---
Discharge Diet: No Restrictions Discharge Activity: Return to Normal Activity, May not drive while taking narcotic pain medications., May Shower May resume sexual activity in: 4-6 weeks Call your doctor if your incision/area has: Continuous Slow Oozing, Sudden Increased Bleeding, Increased Pain/ Swelling, Increased Redness, Foul Smelling Discharge Additional Instructions: If you experience any of the following, contact your healthcare provider. * Bleeding that soaks a pad every hour for 2 hours * Fever 100.4 or higher * Unrelieved incision or abdominal pain * Swelling, redness, discharge or bleeding from your incision or episiotomy site * Your incision begins to separate * Problems urinating (including inability to urinate or burning while urinating). * Visual changes * Severe headache * Flu-like symptoms * Pain or redness in one of both of your breasts * Pain, warmth, tenderness or swelling in your legs, especially the calf area * Frequent nausea and vomiting * Symptoms of depression or anxiety If you experience any of the following, call 911 or go to the nearest Emergency Room. * Chest pain * Problems breathing * Seizure activity * Partial or complete paralysis of a body part, slurred speech, weakness or drooping of the face, or a sudden inability to walk or hold your balance Allergies/Adverse Reactions: Allergies Sulfa (Sulfonamide Antibiotics) Allergy (Mild, Verified 01/01/19 13:50) Rash Medications to take at Discharge albuterol sulfate HFA 90 mcg/actuation aerosol inhaler 2 puff INHALATION Q6H PRN 11/19/18 Cefuroxime Axetil [Cefuroxime] 500 mg PO BID 12/28/18 Guaifenesin [Mucinex] 1,200 mg PO BID 01/01/19 Ipratropium/Albuterol Sulfate [Duoneb] 3 ml INHALATION Q4H 01/01/19 Prednisone 10 mg PO UD 01/01/19 Please Follow Up With: Rita Sierra MD - [phone] When: Call to make an appointment with your doctor in 4 weeks. Primary Care Physician: Reymundo Grady,Out of [Primary Care Provider] - Test Results: Test results from this visit will be discussed in further detail at your follow- up appointment, if applicable.
[2019-01-02] MEDS: 0.9% Saline Lock 10 ML Syringe IV ×3 (00:50→09:04)
[2019-01-02] MEDS: oxyCODONE 5 MG Tablet PO (01:41)
[2019-01-02 02:52] LABS: Pathology Specimen OB SEE PATHOLOGY REPORT
--- NOTE | 2019-01-02 03:44 | NURSING ---
Baby weight: 24 g and height: 12 cm. Unable to obtain head circumference.
[2019-01-02] MEDS: Ipratropium/Albuterol Sulfate 3 ML AMPUL.NEB INHALATION (09:43)
--- NOTE | 2019-01-02 09:52 | US_ITS ---
STUDY: ULTRASOUND OF THE FEMALE PELVIS - COMPLETE REASON FOR EXAM: Female, 23 years old. Status post vaginal delivery of demise. Cramping and blood clots. LMP: Not available. TECHNIQUE: Transvaginal TECHNICAL QUALITY: Adequate. COMPARISON: None. FINDINGS: The uterus is anteverted and is tilted to the right side of the pelvis. The uterus measures 12.4 cm x 6.1 cm x 6.0 cm. Normal uterine cervix. The endometrium measures 25.8 mm in thickness, and is heterogeneous (striated). Retained products of conception should be ruled out. This is more prominent in the lower uterine segment. There is no demonstrated myometrial mass. I.U.D. - The patient does not have an I.U.D. The right ovary is non-visualized. The left ovary is visualized. The left ovary measures 2.1 cm x 1.8 cm x 2.3 cm. There is no left ovarian cyst or ovarian mass. There is no visualized left adnexal mass or complex lesion. There is normal arterial and normal venous vascularity. There is no fluid in the cul-de-sac. The pre void volume of the bladder was 313 ml. Polycystic ovary disease: No. US/Transvaginal Non- IMPRESSION: Heterogeneous thickening of the endometrium suggestive of retained products of conception. Electronically Signed: Khanh Urena, at 14:15 EDT , Service support ,
--- NOTE | 2019-01-02 09:52 | US_ITS ---
STUDY: ULTRASOUND OF THE FEMALE PELVIS - COMPLETE REASON FOR EXAM: Female, 23 years old. Status post vaginal delivery of demise. Cramping and blood clots. LMP: Not available. TECHNIQUE: Transvaginal TECHNICAL QUALITY: Adequate. COMPARISON: None. FINDINGS: The uterus is anteverted and is tilted to the right side of the pelvis. The uterus measures 12.4 cm x 6.1 cm x 6.0 cm. Normal uterine cervix. The endometrium measures 25.8 mm in thickness, and is heterogeneous (striated). Retained products of conception should be ruled out. This is more prominent in the lower uterine segment. There is no demonstrated myometrial mass. I.U.D. - The patient does not have an I.U.D. The right ovary is non-visualized. The left ovary is visualized. The left ovary measures 2.1 cm x 1.8 cm x 2.3 cm. There is no left ovarian cyst or ovarian mass. There is no visualized left adnexal mass or complex lesion. There is normal arterial and normal venous vascularity. There is no fluid in the cul-de-sac. The pre void volume of the bladder was 313 ml. Polycystic ovary disease: No. US/Pelvic (Non ) IMPRESSION: Heterogeneous thickening of the endometrium suggestive of retained products of conception. Electronically Signed: Khanh Urena, at 14:15 EDT , Service support ,
--- NOTE | 2019-01-02 11:40 | CASEMGMT ---
Social Work Brief Assessment - Labor and Delivery Unit Refer documentation below for further details. Date of Referral/Notification: 01/02/2019 Time of Referral: 0830 Referred By: verbal notification by nursing staff Reason for Referral: loss Date of Intervention: 01/02/2019 Time of Intervention: 1140 Informant: Medical record and mother of baby (MOB) History: MOB is a 23 year old G1, P0 presenting to [facility] with a 14, almost 15 week loss. care started at 11 weeks per chart review. Noted history of marijuana use though not endorsed during . MOB reports baby boy is to be named Wayne. Father of baby (FOB) is reported to be Duncan Mancera whom MOB has been with for 6 years now. MOB reports to live with FOB and MOB?s mother who MOB reports are both supports. MOB reports history of anxiety and that OBGYN did prescribe Celexa for such during this , though MOB only took for 2 weeks. Assessment: MOB reports found out a couple of days before coming into the hospital of likely demise so had some time to prepare. MOB reports thought that knowing beforehand was better for MOB in having time to adjust to the outcome. MOB reports that does not like counseling, does not like to talk to strangers, and would rather seek comfort and support from families. MOB reports not to be real interested in any support groups or referrals to counseling for added support. MOB reports ?don?t want to grieve,? as MOB is crying and talking to this advertising writer. MOB reports that just wants to keep moving forward in life and not think too much about this loss. Educated MOB that everyone handles loss differently, that people grieve differently and in their own time. Gently discussed with MOB that feelings do often surface, regardless of what one?s mind tells self, and that if emotions are present dealing with and managing such may be helpful in being able to move forward. Educated there are stages of grief and that this is not response that one can predict, so just to be aware that MOB could experience different thoughts and emotions in the coming months. Also touched on depression and anxiety, that loss does increase risk for such. MOB reports has tried to get anxiety medicine from primary care doctor before but the doctor only prescribed an antidepressant which ?made me mad.? MOB reports to feel that family is a great support, that likes to talk to family and also likes to cry for coping, but likes to cry alone. MOB?s mother came into room partway through social work visit, and FOB slept on couch during conversation. MOB?s mother voiced support to MOB and acknowledged that MOB was able to hold Pacey, which is what MOB had wanted to do. MOB also wanted pictures, which MOB did get, but not sure if will print the pictures up or not. Though MOB not voicing much interested in having any referrals for outside professional support, MOB accepting of information that nursing home social worker offered. MOB denies any safety concerns going home, and reports wish to go home today. MOB with flat affect, crying intermittently, polite but also guarded in conversation. MOB accepting of information provided but not committing to seek out support outside of what family and friends can provide. MOB's mother was present and hearing education social work offered and importance of having support from others during this time. Intervention: Provided MOB handout on parents and grieving, which includes the stages of grief. Provided online sites for parents experiencing loss as this may be an avenue for MOB to look at on own time and comfort. Provided list of counselors in MOB?s area as well as educated to local grief support group. Emotional support and encouragement offered to MOB this date, and encouraged MOB to use support system if needed. Plan: MOB to home today with family support. Resources are in place. -SOLA Dumont, ELAN
--- NOTE | 2019-01-02 14:34 | NURSING ---
Discussed with pt. findings of ultrasound that unterine lining appears to be thick yet, and Dr. Sierra coming to discuss this with pt. Dr. Sierra requesting for pt. to take 400 mcg cytotec po x1 now. Pt. tearful and angry, refusing to take cytotec at this time. Pt. very anxious, making phone calls with family and trying to plan for afternoon. States she wants surgery. Encouraged to wait to speak to physician.
--- NOTE | 2019-01-02 15:15 | NURSING ---
Pt. taken to OR after seen per Dr. Sierra in room. Sterile speculum exam completed, Dr. Sierra feels tissue may be present and feels D&C should take place. Pt. agreeable to this. Pt. has continued to deny passing any large clots (reports passing tiny clots when up to bathroom, bleeding remains small, and pt. repots this is decreasing quite a bit. Pt. reports an increase in cramping, but did not want any medication for this.
--- NOTE | 2019-01-02 15:30 | POC_PTH ---
PATIENT: LYRIC WALLACE LOC: [facility] U#:[id number] AGE/SX: 23/F ROOM: WP021 RE01/01/[address]: Dr. Rita Sierra MD : 1995 BED: 1 DIS: 01/02/2019 SPEC #: [id number] RECD: 01/03/19 07:22 STATUS: JANUSZ YANELY #: [id number] JAVID: 01/02/19 15:[address]: Rita Sierra DEPT: SURGICAL PATHOLOGY RECD BY: Georges Mg ENTERED: 01/03/19 13:18 SP TYPE: PROD CONC OTHR DR: Out of [facility] Doctor Tissues: Product of conception, NOS Procedures: Surgery Specimen Level IV HEADER OPERATION: Dilation and curettage, suction PRE-OP DIAGNOSIS: premature of membranes, demise TISSUE SUBMITTED: Products of conception MICROSCOPIC DIAGNOSIS Products of conception: Decidua and gestational endometrium. See comment. SJ:daniel 01/04/19 COMMENT Chorionic villi are not identified. Please make reference to previous specimen ([id number]) placenta with diagnosis of immature placenta (29 gm), umbilical cord - trivascular, with no pathologic change, placental membranes - no pathologic change and no evidence of inflammation and placental disc with mild intervillous congestion. MICROSCOPIC DESCRIPTION Slides are reviewed. GROSS DESCRIPTION Received in fixative is one container labeled with the patient's name and designated products of conception. The specimen consists of multiple irregular fragments of light krause soft tissue that in aggregate measure 6 x 6 x 0.8 cm. parts are not grossly recognized. Straddle Truck Operator portions are submitted in three cassettes. / AM:daniel 01/03/19 TC:5 [facility]: [id number]
--- NOTE | 2019-01-02 16:06 | PCM.PN.BLA ---
Progress Note patient passed some more tisue and ultrasound done which showed potential retained POC- plan suction d and c for retained products.
--- NOTE | 2019-01-02 16:08 | PCM.OPRPT ---
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 (11) Status: Acute Qualifiers: Comment: carrier, genetic, ntd screening declined. 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 (14) Asthma Status: Chronic Qualifiers: Comment: uses albuterol PRN (15) Chorioamnionitis Status: Acute Report of Operation Date of Procedure: 01/02/19 Pre-Operative Diagnosis: pprom chorioamnionitis retained POC Post-Operative Diagnosis: same Surgery/Procedure Performed:: suction d and c Description of Surgical Findings:: 10 week Type of Anesthesia:: Local MAC Special Medications: ampicillin, gentamicin Specimen's removed: poc Drains: none Estimated Blood Loss (mL): 50 Fluids Replaced: crystalloid Description of Procedure: Patient was taken to the operating room and placed under MAC local anesthesia. She was prepped and draped in the normal sterile fashion the dorsal lithotomy position. Bladder was drained of clear urine and anterior lip of the cervix was grasped and the uterus sounded to 10. Cervix was progressively dilated to allow passage of a 10 mm suction curette. Progressive passes were made removing the retained products of conception without complication. Sharp curettage confirmed complete removal of the retained products. All instruments were removed from the vagina and excellent hemostasis was noted and the patient was taken to recovery in stable condition. Grafts/Implants Used: none - Complications none - Admit VTE Documentation VTE Present on Admission: No VTE Mechan Device Prophylaxis: SCD's
--- NOTE | 2019-01-02 17:14 | CPS ---
rt called to pacu for times 1 duoneb.
== END 2019-01-02 18:08 | disposition home or self-care (01) | DRG 796 ==
LOC: WP 01-02 15:14 → ACINP 01-02 17:20 → WP 01-04 06:11
PROVIDERS: Admitting Provider Obstetrics & Gynecology; Visit Provider Obstetrics & Gynecology
PROC: 10E0XZZ Delivery of Products of Conception, External Approach (ICD-10-PCS; principal; 2019-01-02 15:15)
DX: O36.4XX0 Maternal care for intrauterine death, not applicable or unspecified (principal); O41.1220 Chorioamnionitis, second trimester, not applicable or unspecified; Z37.1 Single stillbirth; J18.9 Pneumonia, unspecified organism; O42.912 Preterm premature rupture of membranes, unspecified as to length of time between rupture and onset of labor, second trimester; O99.52 Diseases of the respiratory system complicating childbirth; J20.8 Acute bronchitis due to other specified organisms; G89.29 Other chronic pain; M54.5 Low back pain; J45.909 Unspecified asthma, uncomplicated; F12.10 Cannabis abuse, uncomplicated; O99.212 Obesity complicating pregnancy, second trimester; E66.01 Morbid (severe) obesity due to excess calories; Z3A.14 14 weeks gestation of pregnancy; Z87.891 Personal history of nicotine dependence; Z87.01 Personal history of pneumonia (recurrent)
CPT/HCPCS: 59050; 71045; 76830; 76856; 83036; 85027; 86850; 86900; 88305; 88307; 94640; 99218; J7120; A4216; G0378

== ENCOUNTER 2019-10-24 11:31 | Emergency (ER) | payer OTHER, SELFPAY ==
[2019-01-02 15:50] VITALS: BMI 47.8
[2019-10-24 11:32] VITALS: BP 154/103; PULSE 125; RESP 17; TEMP 37.1; O2SAT 93; BMI 48.5
--- NOTE | 2019-10-24 12:10 | ED.RN ---
c/o pelvic pain. miscarriage at 15 weeks in december.
--- NOTE | 2019-10-24 12:28 | US_ITS ---
STUDY: ULTRASOUND TRANSVAGINAL CLINICAL: Female, 24 years old. pelvic pain TECHNIQUE: Transabdominal and Transvaginal examination. COMPARISON: December 23, 2018. FINDINGS: Normal uterine size measuring 7.3 x 4.4 x 3.4 cm in maximal craniocaudal dimension. There are no myometrial masses. Normal endometrial thickness measuring 6.2 mm. There are no endometrial masses, and there is no fluid in the endometrial cavity. Typically benign-appearing nabothian cervical cysts are identified. Normal right ovary, measuring 3.7 x 3.6 x 2.7 cm. There are multiple follicles without a dominant cyst. There is appropriate dopplerable vascular flow to the right ovary. Normal left ovary, measuring 2.6 x 2.1 x 2.1 cm. There are multiple follicles without a dominant cyst. There is appropriate dopplerable vascular flow to the left ovary. There is no free fluid in the pelvis. Polycystic ovary disease: No. US/Transvaginal Non- IMPRESSION: No sonographically evident pathology. Electronically Signed: Jose Watts MD at 14:11 EST , Service support ,
--- NOTE | 2019-10-24 12:29 | ED.VISSUMM ---
- ER Visit Summary Date of Service: 10/24/19 Chief Complaint: Pelvic pain History of Present Illness: The patient is a 24 F presenting with pelvic pain. Patient states that she started having intermittent left-sided pelvic pain 4 days ago. She took a test 2 days ago which was positive. She states she took another test yesterday and today which were both negative. Her last period was September 09, 2019. She denies vaginal bleeding. Denies vaginal discharge. Denies current pain. She has had nausea with no vomiting. Denies fever. Denies urinary complaints. Denies other complaints. Physical Examination: Vitals are stable. Patient is afebrile. Alert no acute distress. HEENT exam is unremarkable. Neck is supple. Lungs are clear and equal bilaterally. Heart is regular rate and rhythm. Abdomen is soft nontender nondistended. No guarding or rebound Extremities are unremarkable. Skin is warm and dry. No focal neurologic deficit. Remainder of exam is unremarkable. Emergency Department Course and Treatment: hCG quant less than 1. Blood type O+. Pelvic ultrasound shows no sonographically evident pathology. On reevaluation, patient is feeling improved. She is advised to follow-up with Dr. Quiroz. Advised return to the ED for worsening complaints. Disposition: Discharge home Impression: Pelvic pain This note was generated with [employer] dictation software. It may contain incorrect words, spelling, and punctuation that were not noted in review of the chart prior to signing ED Disposition - Plan for ED Patient: Referrals: GLENN DIAZ [Other]
[2019-10-24 13:12] LABS: hCG Titer Quant., Serum < 1 mIU/mL (1-3)
[2019-10-24 14:16] VITALS: BP 139/89
--- NOTE | 2019-10-24 14:30 | ED.DEP ---
ED Disposition - Plan for ED Patient: Instructions: PELVIC PAIN, Unknown Cause Referrals: GLENN DIAZ [Other] Rita Sierra MD [STAFF PHYSICIAN] -
== END 2019-10-24 14:47 | disposition home or self-care (01) ==
PROVIDERS: Emergency Provider Emergency Medicine
DX: R10.2 Pelvic and perineal pain (principal); J45.909 Unspecified asthma, uncomplicated; R11.0 Nausea; R10.9 Unspecified abdominal pain
CPT/HCPCS: 76830; 84702; 86900; 86901; 99283; A4216

== ENCOUNTER → 2023-05-10 07:38 | Outpatient (CLI) | payer MEDICAID, SELFPAY ==
--- NOTE | 2023-05-10 07:56 | EX.OP.PR.HP ---
History of Present Illness General Arrival date:: 05/10/23 Arrival time:: 07:57 Date of Referral:: 04/24/23 Date of Evaluation: 05/10/23 Referring Physician: Dr. Radha Morejon @ [facility] / Dr. 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 Y/N Grade: Description of Breathlessness: 0 I only get breathless with strenuous exercise. 1 I get short of breath when hurrying on level ground or walking up a slight hill. 2 On level ground, I walk slower than people of the same age because of breathless, or have to stop for breath when walking at my own pace. y 3 I stop for breath after walking 100 yards or after a few minutes on level ground. n 4 I am too breathless to leave the house or I am breathless when dressing. Respiratory Problems: Yes Fatigue, Able to Speak in Full Sentences, Dyspnea at Rest and Dyspnea with Activity Medications Home Medications albuterol sulfate 90 mcg/actuation aerosol inhaler (ProAir HFA) 2 puff inhalation Q6H PRN Shortness Of Breath 11/19/18 cefuroxime axetil 500 mg tablet 500 mg PO BID antibiotic 12/28/18 guaifenesin 1,200 mg tablet, extended release 12 hr (Mucus Relief ER) 1,200 mg PO BID pneumonia 01/01/19 ipratropium 0.5 mg-albuterol 3 mg (2.5 mg base)/3 mL nebulization soln 3 ml inhalation Q4H breathing tx 01/01/19 prednisone 10 mg tablet 10 mg PO UD pneumonia 01/01/19 abatacept 125 mg/mL subcutaneous syringe (Orencia) 125 mg subcut QWEEK 05/10/23 azathioprine sodium 100 mg solution for injection IV 05/10/23 fluticasone 500 mcg-salmeterol 50 mcg/dose blistr powdr for inhalation (Advair Diskus) 1 inh inhalation Q12H 05/10/23 lisinopril 10 mg-hydrochlorothiazide 12.5 mg tablet 1 tab PO DAILY 05/10/23 montelukast 10 mg tablet (Singulair) 10 mg PO DAILY 05/10/23 sertraline 50 mg tablet (Zoloft) 50 mg PO DAILY 05/10/23 Allergies Allergies latex Allergy (Intermediate, Verified 05/10/23 08:23) Rash Sulfa (Sulfonamide Antibiotics) Allergy (Mild, Verified 10/24/19 11:31) Rash mirabegr Allergy (Intermediate, Uncoded 05/10/23 08:23) Rash Secretions Normal Color:: white Thick:: Yes Amount/Day:: 2 TSP Cough:: Yes AM: Yes Sleep Disorder Evaluation Hx of Sleep Apnea: No Do you snore loudly (louder than talking or can be heard through closed doors)?: No Do you often feel tired/ fatigued/ sleepy during daytime?: Yes Has anyone observed you stop breathing during sleep?: No History of Hypertension (for STOP score): Yes STOP Results: Positive Medical Utilization Medical Utilization Number of hospital visits in the last year?: 0 Number of emergency room visits in the last year?: 1 (chest pain went to emergency room and had chest x-ray done) Do you see your physician on a regular schedule?: Yes How often?: Jean-Pierre - 3 months; PCP 6 months, Arthritis every 3 Advanced Directives Advanced Directives Power of Construction Checker: No Living Will: No Advance Directives Information Provided: Yes Advance Directives on File: No DNR Order?:: No MOLST See MOLST form: No Past Medical History Covid-19 Screening Physicial Symptoms Fever: No Unexplained muscle aches: Yes (arthritis) Current respiratory symptoms: No Upper respiratory infections symptoms: No Gastro-intestinal symptoms: No Gar-Qlvb-Szgcow symptoms: No Other Clinical Concerns Has tested positive for COVID-19 in last 30 days: No Date of testin05/10/23 (has not had COVID-19 vaccines but has had pneumovax) Exposure Risk Had contact w/person w/symptoms or Covid-19 (+) last 14 days: No Has High Risk Exposures ID'd by Health dept/Inf Control team: No Pertinent Comorbidities 65 years or older:: No Lives in Assisted Living facility:: No Has a chronic lung disease or moderate to severe asthma:: Yes Has a serious heart condition:: No Immunocompromised:: No Severely obese (Body Mass Index of 40 or higher):: Yes Diabetic:: No Has chronic kidney disease undergoing dialysis:: No Has liver disease:: No Medical History Past Medical History (Updated 01/15/20 @ 10:58 by Toy MOTTA, PA) Asthma J45.909 uses albuterol PRN Chronic low back pain M54.5, G89.29 crack in lumbar Surgical History Past Surgical History (Updated 01/02/19 @ 16:[address] Rita Sierra MD) History of tonsillectomy and adenoidectomy Z98.890 [place] teeth removed K08.409 Significant Family History Family History Mother Hypertension Aunt Diabetes Uncle Diabetes Current/ Previous Services Pulmonary Rehab:: No Social History Smoking History Smoking Status: Former smoker (smoked for 9 years quit 06/2018) Alcohol Use Alcohol Usage: No Substance Abuse Hx Substance Use: No Occupation Occupation (List type of work in comments):: Unemployed (disability) Hobbies, Recreation, Social Activities Hobbies: Other (hanging with dogs, [place]) Recreational Activities: I am able to engage in most, but not all activities Functioning ADL/IADL Current Ability Current Ability: Independent: Self-Care (e.g.,grooming, dressing, & bathing), Independent: Ambulation, Independent: Transfer and Independent: Household tasks (e.g., light meal prep, laundry, shopping) Pt Functioning Prior to Problem Prior Functioning: Self-Care (e.g.,grooming, dressing, & bathing): Independent, Ambulation: Independent, Transfer: Independent and Household tasks (e.g., light meal prep, laundry, shopping): Independent Social Environment Status Marital Status: Single Current Living Arrangements Living Environment:: Family Children How many children do you have?: 0 Safety Do you feel safe in your surroundings?: Yes Review of Systems Review of Systems Review of Systems Respiratory: Reports Cough, SOB at Rest (sometimes; depending on daily symptoms), SOB upon Exertion, Sputum production (am after duo-neb), Wheezing, Appetite, Normal, Dizziness/Lightheadedness, Fatigue and Sleep, Normal Pain Is Patient Pain Free?: Yes Pain Location: none Previous experience dealing with pain?: Scitic arthritis pain pain level can be an 8 Risk Factor Assessment Vital Signs Pulse Rate: 78 Pulse Rhythm: Regular Respiratory Rate: 14 Pulse Ox: 95 (room air) Blood Pressure: 128/64 Diabetes Nutrition Referral for Diabetes: No Obesity Height: 4 ft 11 in Weight:: 220 lb Weight in Pounds: 220.0 lbs Weight Source: Estimated by Patient Body Mass Index (BMI): 44.4 Nutritional Referral for Obesity: Yes Physical Activity Physical Inactivity: None Risk Stratification Risk Guidelines: Lowest Risk: Risk Factor for Smoking, Risk Factor for Dyslipidemia, Risk Factor for Diabetes and Risk Factor for Hypertension and Highest Risk: Risk Factor for Obesity and Risk Factor for Sedentary Lifestyle For Smoking Smoking Risk Guidelines For Dyslipidemia Dyslipidemia Risk Guidelines For Diabetes Mellitus Diabetes Risk Guidelines For Obesity/Overweight Obesity/Overweight Risk Guidelines For Hypertension Hypertension Risk Guidelines For Sedentary Lifestyle Sedentary Lifestyle Risk Guidelines For Depression Depression Risk Guidelines Motivation Motivation to Participate On a scale of 1 to 10, how prepared are you to commit to attending program?: 0 (feels like being forced to do the program, doesn't really want to do it.) What do you see as barriers to successfully being able to complete the program?: doesn't feel learn anything she doesn't already know. What do you see as the benefits of succesfully completing the program? In other words, what do you hope to get out of participating in the program?: more exercise Are there issues you are dealing with that will interfere with completing the program?: arthritis , sciatic arthritis Do you have a spouse or signficant other, family or friends who will help support you to complete the program?: yes
--- NOTE | 2023-05-10 07:57 | PR.OPITP_ITS ---
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 Secondary Diagnosis: Obesity, Anxiety & depression, hypertension, hypoxia (recently off home oxygen) Personal Learning Style/Barriers Personal Learning Style:: Audio/Visual, Verbal and Individual Preference Barriers to Learning: Emotional (anxiety & depression also ADHD) and Vision impaired Educational Classes MA: Living with Chronic Lung Disease: Initial Assessment, Breathing Retraining: Initial Assessment, Energy Conservation: Initial Assessment and Emotion Social Well Being: Initial Assessment Education/Goals Individual Counseling: Initial Assessment: Overweight/Obesity MA Patient Goals: Increase muscle strength: Initial Assessment, Experience less dyspnea: Initial Assessment, Improve energy level: Initial Assessment, Improve the ability to cope with ADLs: Initial Assessment, Improve my quality of life: Initial Assessment and Reduce Stress/relaxation techniques: Initial Assessment Exercise - Initial Assessment Visit Date of Eval: 05/10/23 Session Number:: 0 (Pre-pulmonary rehab evaluation) Problem/Goals Problems: No regular exercise, Knowledge deficit exercise guidelines and Knowledge deficit exercise safety Goals:: Aerobic exercise 30-60 mins x 12 weeks [36 sessions] Physician Prescribed Exercise Modalities: Treadmill (may be limited due to stability (sciatic arthritis)), NuStep, SciFit and Lateral Mold Tooling Technician Frequency (days/week): 3 Duration (Minutes):: 30-45 Intensity: 60-80% of age predicted maximum heart rate reserve Current METSs:: 3.0 Target HR:: 144 EKG Type: SAinus tachycardia Plan Plan and Plan to Review:: Benefits of exercise, Core components of exercise, How to measure dyspnea level, How to monitor dyspnea level, Exercise intensity, Exercise safety guideline, Home exercise guidelines and Steven: 3-4/11-13 Exercise - 30-Day Assessment Visit Date of Eval: 05/10/23 Session Number:: 0 (Pre-pulmonary rehab evaluation) Physician Prescribed Exercise Current METSs:: 3.0 Target HR:: 144 EKG Type: SAinus tachycardia Exercise - 60-Day Assessment Visit Date of Eval: 05/10/23 Session Number:: 0 (Pre-pulmonary rehab evaluation) Physician Prescribed Exercise Target HR:: 144 EKG Type: SAinus tachycardia Exercise - 90-Day Assessment Visit Date of Eval: 05/10/23 Session Number:: 0 (Pre-pulmonary rehab evaluation) Physician Prescribed Exercise Current METSs:: 3.0 Target HR:: 144 EKG Type: SAinus tachycardia Exercise - Final Assessment Visit Session Number:: 0 (Pre-pulmonary rehab evaluation) Physician Prescribed Exercise Modalities: Treadmill (may be limited due to stability (sciatic arthritis)), NuStep, SciFit and Lateral [place] Current METSs:: 3.0 EKG Type: SAinus tachycardia Nutrition/Wt Mgmt - Initial Visit Date of Eval: 05/10/23 Session Number:: 0 (pre-pulmonary rehab evaluation) Problems/Goals Problems: Overweight Goals: Wt Loss 1-2 lbs per week Weight Management Knowledge Deficit Management of:: Overweight Admit Height:: 4 ft 11 in Admit Weight:: 220 lb Admit BMI:: 44.4 Intervention Referral to dietitian:: Yes Will attend diet classes:: Yes Intervention/Plan: Instruct on ideal BMI & set weight loss goal w/patient and Refer to Structured Weight Loss program as appropriate Plan Nutrition Plan: Yes: Review BMI or WC & identify target wt & strategies for wt control, Yes: Nutrition education class: (Why Weight structured weight loss program) and Yes: Weight control education class: Nutrition/Wt Mgmt - 30-Day Visit Session Number:: 0 (pre-pulmonary rehab evaluation) Weight Management Height: 4 ft 11 in Weight:: 220 lb BMI: 44.4 Nutrition/Wt Mgmt - 60-Day Visit Session Number:: 0 (pre-pulmonary rehab evaluation) Weight Management Height: 4 ft 11 in Weight:: 220 lb BMI: 44.4 Nutrition/Wt Mgmt - 90-Day Visit Session Number:: 0 (pre-pulmonary rehab evaluation) Weight Management Height: 4 ft 11 in Weight:: 220 lb BMI: 44.4 Nutrition/Wt Mgmt - Final Visit Session Number:: 0 (pre-pulmonary rehab evaluation) Weight Management Height: 4 ft 11 in Weight:: 220 lb BMI: 44.4 Psychosocial - Initial Assess Visit Date of Eval: 05/10/23 Session Number:: 0 (pre-pulmonary rehab evaluation) Problems/Goals History of Emotional Disorders: Anxious and Depression Psychosocial Goals: 1. Patient is free from overwhelming symtoms of depression (or anxiety, 2. Identifies personal stressors & states the strategies for managing, 3. Identifies activities to decrease isolation and/or symptoms of, 4. Improved psychosocial coping skills., 5. Verbalizes coping strategies. and 7. Improved Q.O.L. Psychosocial Test Tool Used:: Pulmonary QOL and PHQ-9 Questionnaire Referral to Behavioral Health PS - Interventions: Yes: Attend Stress Management Classes Intervention/Plan: See List Interventions/Plan:: Assess stressors,coping strategies & signs of derpression on admission, Instruct/assist pt to develop coping & personal stress Mgt strategies, Instruct patient to recognize signs & symptoms of depression and Instruct patient to recog Psychosocial - 30-Day Visit Session Number:: 0 (pre-pulmonary rehab evaluation) Problems/Goals History of Emotional Disorders: Anxious and Depression Psychosocial Goals: 1. Patient is free from overwhelming symtoms of depression (or anxiety, 2. Identifies personal stressors & states the strategies for managing, 3. Identifies activities to decrease isolation and/or symptoms of, 4. Improved psychosocial coping skills., 5. Verbalizes coping strategies. and 7. Improved Q.O.L. Psychosocial Test Tool Used:: Pulmonary QOL and PHQ-9 Questionnaire Referral to Behavioral Health PS - Interventions: Yes: Attend Stress Management Classes Plan Interventions/Plan:: Assess stressors,coping strategies & signs of derpression on admission, Instruct/assist pt to develop coping & personal stress Mgt strategies, Instruct patient to recognize signs & symptoms of depression and Instruct patient to recog Psychosocial - 60-Day Visit Session Number:: 0 (pre-pulmonary rehab evaluation) Problems/Goals History of Emotional Disorders: Anxious and Depression Psychosocial Goals: 1. Patient is free from overwhelming symtoms of depression (or anxiety, 2. Identifies personal stressors & states the strategies for managing, 3. Identifies activities to decrease isolation and/or symptoms of, 4. Improved psychosocial coping skills., 5. Verbalizes coping strategies. and 7. Improved Q.O.L. Psychosocial Test Tool Used:: Pulmonary QOL and PHQ-9 Questionnaire Referral to Behavioral Health PS - Interventions: Yes: Attend Stress Management Classes Plan Interventions/Plan:: Assess stressors,coping strategies & signs of derpression on admission, Instruct/assist pt to develop coping & personal stress Mgt strategies, Instruct patient to recognize signs & symptoms of depression and In struct patient to recog Psychosocial - 90-Day Visit Session Number:: 0 (Pre-pulmonary rehab evaluation) Problems/Goals History of Emotional Disorders: Anxious and Depression Psychosocial Goals: 1. Patient is free from overwhelming symtoms of depression (or anxiety, 2. Identifies personal stressors & states the strategies for managing, 3. Identifies activities to decrease isolation and/or symptoms of, 4. Improved psychosocial coping skills., 5. Verbalizes coping strategies. and 7. Improved Q.O.L. Psychosocial Test Tool Used:: Pulmonary QOL and PHQ-9 Questionnaire Referral to Behavioral Health PS - Interventions: Yes: Attend Stress Management Classes Plan Interventions/Plan:: Assess stressors,coping strategies & signs of derpression on admission, Instruct/assist pt to develop coping & personal stress Mgt strategies, Instruct patient to recognize signs & symptoms of depression and Instruct patient to recog Psychosocial - Final Assess Visit Session Number:: 0 (Pre-pulmonary rehab evaluation) Problems/Goals History of Emotional Disorders: Anxious and Depression Psychosocial Goals: 1. Patient is free from overwhelming symtoms of depression (or anxiety, 2. Identifies personal stressors & states the strategies for managing, 3. Identifies activities to decrease isolation and/or symptoms of, 4. Improved psychosocial coping skills., 5. Verbalizes coping strategies. and 7. Improved Q.O.L. Psychosocial Test Tool Used:: Pulmonary QOL and PHQ-9 Questionnaire Referral to Behavioral Health PS - Interventions: Yes: Attend Stress Management Classes Plan Interventions/Plan:: Assess stressors,coping strategies & signs of derpression on admission, Instruct/assist pt to develop coping & personal stress Mgt strategies, Instruct patient to recognize signs & symptoms of depression and Instruct patient to recog Oxygen & Oxygen Titration Init Visit Date of Eval: 05/10/23 Session Number:: 0 (pre-pulmonary rehab evaluation) Initial Assessment Oxygen on Admission: None Patient Reports:: No cough Goal Oxygen & Oxygen Tritration Goals: Effective hypoxemia control Plans Plan: Monitor SpO2 rest & with exercise Reviewed prescribed medications:: Schedule, Side effects and Importance of compliance Instruct correct technique/timing & care:: MDI, DPI and Nebulizer Oxygen & Oxygen Titration 30D Visit Session Number:: 0 (Pre-pulmonary rehab evaluation) Oxygen & Oxygen Titration 60D Visit Session Number:: 0 (Pre-pulmonary rehab evaluation) Oxygen & Oxygen Titration 90D Visit Session Number:: 0 (Pre-pulmonary rehab evaluation) Oxygen & Oxygen Titration BRAYDON Visit Session Number:: 0 (Pre-pulmonary rehab evaluation) Core Components - Initial Visit Date of Eval: 05/10/23 Session Number:: 0 (Pre-pulmonary rehab evaluation) Hypertension Hypertension Diagnosis:: Hypertension ICD-10 I10 [place] [employer] Hypertension Guidelines Outcomes/Goals: Able to verbalize/achieve optimal blood pressure <130/80 and Incorporates diet changes & exercise for blood pressure control by DC Tobacco - Initial Assessment Tobacco Program Goals Stages of Change:: Action Tobacco Use: Non-smoker Exacerbation Mgmt & Airway Clearance Problems:: Hypoxemia Hypoxemia Goals:: Hypoxemia managed Goals: Pt describes signs and symptoms of infection. Patient Reports:: No cough Plan: Monitor SpO2 rest & with traffic analysis technician correct technique/timing & care:: MDI, DPI and Nebulizer Medication Interventions/plans: Instruct importance of taking meds as ordered & assist problem solving Medication Goals: Correct technique/timing & care of MDI, DPI, nebulizer, and spacer. Does pt report taking home meds as prescribed?: Yes Medications: Yes: MDI, Yes: DPI, Yes: NEB and Yes: Spacer Reviewed prescribed medications:: Schedule, Side effects and Importance of compliance Diabetes Diabetes:: No Referral to dietitian:: Yes Will attend diet classes:: Yes Core Components - 30 DAYS Visit Session Number:: 0 (Pre-pulmonary rehab evaluation) Hypertension Hypertension Diagnosis:: Hypertension ICD-10 I10 [place] [employer] Hypertension Guidelines Outcomes/Goals: Able to verbalize/achieve optimal blood pressure <130/80 and Incorporates diet changes & exercise for blood pressure control by DC Tobacco - 30-Day Tobacco Program Goals Stages of Change:: Action Tobacco Use: Non-smoker Diabetes Diabetes:: No Core Components - 60 DAYS Visit Session Number:: 0 (Pre-pulmonary rehab evaluation) Hypertension Hypertension Diagnosis:: Hypertension ICD-10 I10 [place] [employer] Hypertension Guidelines Outcomes/Goals: Able to verbalize/achieve optimal blood pressure <130/80 and Incorporates diet changes & exercise for blood pressure control by DC Tobacco - 60-Day Tobacco Program Goals Stages of Change:: Action Tobacco Use: Non-smoker Diabetes Diabetes:: No Core Components - 90 DAYS Visit Session Number:: 0 (Pre-pulmonary rehab evaluation) Hypertension Hypertension Diagnosis:: Hypertension ICD-10 I10 [place] [employer] Hypertension Guidelines Outcomes/Goals: Able to verbalize/achieve optimal blood pressure <130/80 and Incorporates diet changes & exercise for blood pressure control by DC Tobacco - 90-Day Tobacco Program Goals Stages of Change:: Action Tobacco Use: Non-smoker Diabetes Diabetes:: No Core Components - Final Visit Session Number:: 0 (Pre-pulmonary rehab evaluation) Hypertension Hypertension Diagnosis:: Hypertension ICD-10 I10 [place] [employer] Hypertension Guidelines Outcomes/Goals: Able to verbalize/achieve optimal blood pressure <130/80 and Incorporates diet changes & exercise for blood pressure control by DC Tobacco - Final Tobacco Program Goals Stages of Change:: Action Tobacco Use: Non-smoker Diabetes Diabetes:: No Patient Health Questionnaire PHQ-9 Screening Initial Assessment: 1. Little interest or pleasure in doing things: More than half the days 2. Feeling down, depressed, or hopeless: Several days 3. Trouble falling or staying asleep, or sleeping too much: Several days 4. Feeling tired or having little energy: Nearly every day 5. Poor appetite or overeating: Several days 6. Feeling bad about yourself -- or that you are a failure or have let yourself or your family down: Not at all 7. Trouble concentrating on things, such as reading the newspaper or watching television: Several days 8. Moving or speaking so slowly that other people could have noticed. Or the opposite - being so fidgety or restless that you have been moving around a lot more than usual: Not at all 9. Thoughts that you would be better off , or of hurting yourself in some way: Not at all How difficult have these problems made it for you to do your work, take care of things at home, or get along with other people?: Somewhat difficult Total Score: 9 Knowledge Questionaire (BCKQ) Information Information: [place] COPD Knowledge Questionnaire (BCKQ) This questionnaire is designed to find out what you know about your lung problem. It should be completed without help form anyone else. This usually takes between 10 and 20 minutes. Your answers will help us to find out what information you need to help you to understand and manage your lung condition. Suman the kashia which you think is the correct answer. Questions 1. In COPD: a. In COPD the word chronic means it is severe: False b. COPD can only be confirmed by breathing tests: False c. In COPD ther is usually gradual worsening over time: True d. In COPD oxygen levels in the blood are always low: False e. COPD is usually in people less than 40 years old: True 2. COPD: [place] than 80% of COPD cases are caused by cigarette smoking: True b. COPD can be caused by occupational dust exposure: True c. Longstanding asthma can develop into COPD: True d. COPD is commonly an inherited disease: False e. Women are less vunerable to the effects of cigarette than men: False 3. The following symptoms are Common in COPD: a. Swelling of the ankles is common in COPD:: True b. Fatigue [tiredness] is common in COPD: True c. Wheezing is common in COPD: True d. Crushing chest pain is common in COPD: True e. Rapid weight loss is common in COPD: True 4. Breathlessness in COPD: a. Severe breathlessness prevents travel by air: True b. Breathlessness can be worsened by eating large meals: True c. Breathlessness means that your oxygen levels are low: False d. Breathlessness is a normal response to exercise: False e. Breathlessness is primarily caused by a narrowing of the bronchial tubes: True 5. Phlegm (sputum): a. Coughing phlegm is a common symptom in COPD: True b. Clearing phlegm is more difficult if you get dehydrated: True c. Bronchodilator inhalers can help clear phlegm: True d. Phlegm causes harm if swallowed: False e. Clearing phlegm can be assisted by breathing exercises: True 6. Chest infections / exacerbations: a. Chest infections often cause coughing of blood: False b. Chest infection phlegm usually becomes coloured (ylw/grn): True cExerbations (episodes of worsening) can occur in the absence of chest in fection: True d. Chest infections are always accompanied by a high temperature: False e. Steroid tablets should be taken whenever there is an exacerbation: True 7. Excercise in COPD: aWalking excercises better than breathing to improve fitness: Don't know b. Exercise should be avoided as it strains the lungs: Don't know c. Exercise can help maintain your bone density: Don't know d. Exercise helps relieve depression: Don't know e. Exercise should be stopped if it makes you breathless: Don't know 8. Smoking: a. Stopping smoking will reduce the risk of heart disease: True b. Stopping smoking will slow down further lung damage: True c. Stopping smoking is pointless as the damage is done: False d.Stopping smoking usually results in improved lung function: True eNicotine replacement therapy only available on prescription: False 9. Vaccination: a. A flu jab is recommended every year: True b. You can get flu from having a flu jab: False c. You can only have a flu jab if you are 65 or over: False d. A pneumonia jab protects against all forms of pneumonia: False e.You can have a pneumonia jab and a flu job on the same day: Don't know 10. Inhaled bronchodilators: a. Bronchodilators act quickly (within 10 minutes): False b. Both short & long acting bronchodilators can be taken on the same day: True c. Spacers (volumatic,nebuhaler,serochamber)should be dried w/atowel after washing: True d. A spacer device increases the medication to the lungs: True e. Tremor may be a side effect of bronchodilators: True 11. Antibiotic treatment in COPD: a. To be effective, the course should last at least 10 days: True b. Excessive use of antibiotics can cause resistant bacteria (germs): False c. Antibiotics will clear all chest infections: False d. Antibiotic treatment is necessary for an exacerbation (worsening) however mild: False e. Seek advice if antibiotics cause severe diarrhoea: True 12. Steroid tablets given for COPD (eg Prednisolone): a. Steroid tablets help strengthen muscles: True b. Steroid tablets should be avoided if there is a chest infection: False c. The risk of long-term side effects due to steroids is less w/short courses then w/continous treatment: True dIndigestion is common side effect from using steroid tablet: True e. Steroid tablets can increase your appetite: True 13. Inhaled steroids (brown, red or orange): a. Inhaled steroids should be stopped if you are given steroid tablets: False bSteroid inhalers can be used for rapid relief breathlessnes: False c. Spacer devices reduce the risk of getting thrush in the mouth: True d.Steroid inhaler should be taken before your bronchodilator: Don't know e. Inhaled steroids improve lung function in COPD: False COPD Knowledge Test Total Score:: 45 Nutrition Survey Nutrition Survey Instructions Scoring Instructions Nutrition Survey Initial: Have you lost >10 lbs over the past 2 months without trying?: No Are you following a special diet at home for diabetes, low fat, or low salt?: Yes Are you interested in meeting with a dietitian for help understanding your diet?: No Do you eat less than 3 meals a day?: No Do you eat fatty meats (rosa, sausage, ribs, etc), fried foods, desserts, large amounts of salad dressings, margarine, butter, or cheese most days?: No Do you have food allergies? [Enter types in comment field]: No Do you eat in restaurants more than 3 times a week?: No Do you season food with salt, seasoning salt, or garlic salt?: No Do you used canned, boxed, frozen meals, or soups, seasoning packets?: Yes Total Score:: 2
[2023-05-10 08:19] VITALS: BMI 44.4
[2023-05-10 08:39] VITALS: BP 128/64; PULSE 78; RESP 14; O2SAT 95; BMI 44.4
== END ==
PROVIDERS: PCP Student in an Organized Health Care Education/Training Program
DX: Z00.00 Encounter for general adult medical examination without abnormal findings (principal)

== ENCOUNTER 2023-06-19 10:00 | Outpatient (RCR) | payer MEDICAID, SELFPAY ==
[2023-05-10 08:19] VITALS: BMI 44.4
== END 2023-06-22 23:59 ==
LOC: PR 10:00
PROVIDERS: PCP Student in an Organized Health Care Education/Training Program
DX: J45.50 Severe persistent asthma, uncomplicated (principal)
CPT/HCPCS: 97150; G0239

== ENCOUNTER → 2023-07-28 | Outpatient (CLI) | payer MEDICAID, SELFPAY ==
[2023-05-10 08:19] VITALS: BMI 44.4
[2023-07-28 11:20] LABS: BNP,B-Type NATRIURETIC PEPTIDE 19.4 pg/mL (0-100)
[2023-07-31 20:07] LABS: Alternaria alternata <0.10 kU/L (Class 0); Aspergillus fumigatus <0.10 kU/L (Class 0); Bahia Grass <0.10 kU/L (Class 0); Bermuda Grass <0.10 kU/L (Class 0); Bluegrass, Kentucky <0.10 kU/L (Class 0); Cat Hair/Dander, Standard <0.10 kU/L (Class 0); Cedar, Mountain <0.10 kU/L (Class 0); Cladosporium herbarum <0.10 kU/L (Class 0); Cockroach, American <0.10 kU/L (Class 0); D farinae Mite <0.10 kU/L (Class 0); D pteronyssinus <0.10 kU/L (Class 0); Dog Epithelia <0.10 kU/L (Class 0); Elm, American White <0.10 kU/L (Class 0); Hazelnut Tree <0.10 kU/L (Class 0); Hickory, White <0.10 kU/L (Class 0); Johnson Grass <0.10 kU/L (Class 0); Maple/Box Elder <0.10 kU/L (Class 0); Mucor racemosus <0.10 kU/L (Class 0); Mugwort <0.10 kU/L (Class 0); Mulberry, White <0.10 kU/L (Class 0); Nettle <0.10 kU/L (Class 0); Oak, White <0.10 kU/L (Class 0); Penicillium chrysogen <0.10 kU/L (Class 0); Pigweed, Rough <0.10 kU/L (Class 0); Plantain, English <0.10 kU/L (Class 0); Ragweed, Short/Common <0.10 kU/L (Class 0); Sheep Sorrel(Dock) <0.10 kU/L (Class 0); Stemphylium herbarum <0.10 kU/L (Class 0); Sweet Gum <0.10 kU/L (Class 0); Sycamore, American <0.10 kU/L (Class 0)
[2023-08-02 06:09] LABS: Aspirgillus flavus Negative (Neg:<1:1); Aspirgillus fumigatus Negative (Neg:<1:1); Aspirgillus niger Negative (Neg:<1:1); Immunoglobulin E 26 IU/mL (6-495); QNTFERON TB Mitogen Value > 10.00 IU/mL (.); QNTFERON TB Nil Value 0 IU/mL (.); QNTFERON TB1+ Ag Value 0 IU/mL (.); QNTFERON TB2+ Ag Value 0 IU/mL (.); QNTIFERON TB Positive Criteria Negative (Negative)
== END | disposition home or self-care (01) ==
PROVIDERS: PCP Student in an Organized Health Care Education/Training Program; Referring Provider Internal Medicine Critical Care Medicine; Visit Provider Internal Medicine Critical Care Medicine
DX: J45.909 Unspecified asthma, uncomplicated (principal)
CPT/HCPCS: 36415; 82785; 83880; 86003; 86480; 86606

== ENCOUNTER → 2023-08-11 | Outpatient (CLI) | payer MEDICAID, SELFPAY ==
[2023-05-10 08:19] VITALS: BMI 44.4
--- NOTE | 2023-08-11 08:05 | CT_ITS ---
STUDY: CT CHEST WITHOUT CONTRAST REASON FOR EXAM: Female, 28 years old. bronchiectasis concern -- Please include HRCT images for bronchiectasis RADIATION DOSAGE (If Supplied By Facility): CTDIvol = ( 20.02 ) mGy, DLP = ( 640.16 ) mGycm TECHNIQUE: Transaxial imaging was performed without the administration of intravenous contrast material. Multiplanar coronal and sagittal images were reformatted. Individualized dose optimization techniques were used for this CT. COMPARISON: No relevant priors. FINDINGS: CHEST Dense infiltration in the superior segment of the left lower lobe and posterior aspect of the lingular segment of the left upper lobe. No evidence of bronchiectasis. There is no demonstrated pleural abnormality. Minimal degree of anterior pericardial thickening. There are multiple small lymph nodes within the mediastinum, which are normal in size and morphology most compatible with reactive lymph hyperplasia. Normal hilar regions. Normal unenhanced pulmonary arteries. Normal aorta arch and descending thoracic aorta. Normal osseous structures. There is no demonstrated abnormality of the visualized upper abdomen. CT/Chest without Contrast IMPRESSION: Dense infiltration in the superior segment of the left lower lobe and posterior aspect of the lingular segment of the left upper lobe. Radiographic follow-up is recommended. Minimal anterior pericardial thickening. Electronically Signed: Khanh Urena MD at 12:27 EDT ,
== END | disposition home or self-care (01) ==
LOC: CT 08:04
PROVIDERS: PCP Student in an Organized Health Care Education/Training Program; Referring Provider Internal Medicine Critical Care Medicine; Visit Provider Internal Medicine Critical Care Medicine
DX: J45.909 Unspecified asthma, uncomplicated (principal)
CPT/HCPCS: 71250

== ENCOUNTER 2023-09-29 08:34 | Outpatient (CLI) | payer MEDICAID, SELFPAY ==
[2023-05-10 08:19] VITALS: BMI 44.4
[2023-09-29 08:48] VITALS: BP 147/96; PULSE 80; RESP 16; TEMP 36.7; O2SAT 95; BMI 43.6
[2023-09-29] MEDS: tezepelumab-ekko 210 MG/1.91 ML SYRINGE SC (08:52)
== END 2023-09-29 08:35 | disposition home or self-care (01) ==
PROVIDERS: PCP Student in an Organized Health Care Education/Training Program; Referring Provider Nurse Practitioner Acute Care; Visit Provider Nurse Practitioner Acute Care
DX: J45.50 Severe persistent asthma, uncomplicated (principal)
CPT/HCPCS: 96372; J2356

== ENCOUNTER 2023-10-27 09:42 | Outpatient (CLI) | payer MEDICAID, SELFPAY ==
[2023-05-10 08:19] VITALS: BMI 44.4
[2023-10-27 09:58] VITALS: BP 143/77; PULSE 105; RESP 16; TEMP 36.4; O2SAT 97; BMI 44.4
[2023-10-27] MEDS: tezepelumab-ekko 210 MG/1.91 ML SYRINGE SC (10:32)
--- NOTE | 2023-10-27 11:22 | RAD_ITS ---
STUDY: X-RAY CHEST REASON FOR EXAM: Female, [address] Follow-up. TECHNIQUE: Frontal and lateral views of the chest. COMPARISON: January 01, 2019 FINDINGS: Clearing of the previously described right middle lobe opacity. There is no demonstrated pleural abnormality. Normal size heart. Normal mediastinum and jerry. Normal visualized pulmonary arteries. Normal visualized aortic arch and descending thoracic aorta. Normal visualized thoracic spine. Normal visualized ribs, clavicles, and shoulders. There is no demonstrated abnormality of the visualized soft tissue structures of the upper abdomen. RAD/Chest PA and Lateral IMPRESSION: Clearing of the right lung opacity. No abnormality noted. Electronically Signed: Kaushik Salmon MD at 12:45 EST ,
== END 2023-10-27 09:43 | disposition home or self-care (01) ==
PROVIDERS: PCP Student in an Organized Health Care Education/Training Program; Referring Provider Nurse Practitioner Acute Care; Visit Provider Nurse Practitioner Acute Care
DX: J45.50 Severe persistent asthma, uncomplicated (principal)
CPT/HCPCS: 71046; 96372; J2356

== ENCOUNTER 2023-12-01 09:29 | Outpatient (CLI) | payer MEDICARE, MEDICAID, SELFPAY ==
[2023-05-10 08:19] VITALS: BMI 44.4
[2023-12-01 09:51] VITALS: BP 115/73; PULSE 82; RESP 16; TEMP 36.8; O2SAT 94; BMI 44.4
[2023-12-01] MEDS: tezepelumab-ekko 210 MG/1.91 ML SYRINGE SC (09:53)
== END 2023-12-01 09:30 | disposition home or self-care (01) ==
PROVIDERS: PCP Student in an Organized Health Care Education/Training Program; Referring Provider Nurse Practitioner Acute Care; Visit Provider Nurse Practitioner Acute Care
DX: J45.50 Severe persistent asthma, uncomplicated (principal)
CPT/HCPCS: 96372; J2356

== ENCOUNTER → 2023-12-14 | Outpatient (CLI) | payer MEDICARE, MEDICAID, SELFPAY ==
[2023-05-10 08:19] VITALS: BMI 44.4
--- NOTE | 2023-12-14 07:53 | CT_ITS ---
STUDY: CT CHEST WITHOUT CONTRAST REASON FOR EXAM: Female, 28 years old. PNEUMONIA RADIATION DOSAGE (If Supplied By Facility): CTDIvol = ( 20.13 ) mGy, DLP = ( 663.90 ) mGycm TECHNIQUE: Transaxial imaging was performed without the administration of intravenous contrast material. Individualized dose optimization techniques were used for this CT. COMPARISON: Comparison is made with prior study August 11, 2023. FINDINGS: CHEST The previously seen infiltrations in the left lower lobe have almost completely resolved. Minimal increased linear markings are seen in the superior segment of the left lower lobe suggestive of a possible localized scarring and/or atelectasis. There is no demonstrated pleural abnormality. Normal heart and pericardium. There are small lymph nodes within the mediastinum, which are normal in size and morphology most compatible with reactive lymph hyperplasia. Normal hilar regions. Normal unenhanced pulmonary arteries. Normal aorta arch and descending thoracic aorta. Normal osseous structures. There is no demonstrated abnormality of the visualized upper abdomen. CT/Chest without Contrast IMPRESSION: Marked degree of improvement in the left lower lobe consolidation with minimal residual increased linear markings in the superior segment of the left lower lobe suggestive of scarring and/or atelectasis. Electronically Signed: Khanh Urena MD at 8:35 EST ,
== END | disposition home or self-care (01) ==
PROVIDERS: PCP Internal Medicine Infectious Disease; Referring Provider Nurse Practitioner Acute Care; Visit Provider Nurse Practitioner Acute Care
DX: R93.89 Abnormal findings on diagnostic imaging of other specified body structures (principal); J18.9 Pneumonia, unspecified organism
CPT/HCPCS: 71250

== ENCOUNTER → 2023-12-28 | Outpatient (CLI) | payer MEDICARE, MEDICAID, SELFPAY ==
[2023-05-10 08:19] VITALS: BMI 44.4
--- NOTE | 2023-12-28 16:50 | RAD_ITS ---
INDICATION: Wheezing, history of LLL pneumonia EXAMINATION/TECHNIQUE: X-RAY - XR Chest 2 Views COMPARISON: Prior study dated: 10/27/2023 FINDINGS: LINES/DEVICES: None. LUNGS: No consolidation, edema or effusion. No pneumothorax. MEDIASTINUM AND CARDIOVASCULAR STRUCTURES: Cardiac silhouette not enlarged. Central airways and mediastinal contour are unremarkable. BONES AND SOFT TISSUES: Unremarkable. RAD/Chest PA and Lateral IMPRESSION: No radiographic evidence of acute cardiopulmonary disease. Electronically Signed: Gonzalo Daniels MD at 13:31 EST ,
== END | disposition home or self-care (01) ==
LOC: RAD 16:49
PROVIDERS: PCP Internal Medicine Infectious Disease; Referring Provider Internal Medicine Critical Care Medicine; Visit Provider Internal Medicine Critical Care Medicine
DX: J45.909 Unspecified asthma, uncomplicated (principal)
CPT/HCPCS: 71046

== ENCOUNTER 2023-12-29 10:12 | Outpatient (CLI) | payer MEDICARE, MEDICAID, SELFPAY ==
[2023-05-10 08:19] VITALS: BMI 44.4
[2023-12-29 10:30] VITALS: BP 126/83; PULSE 102; RESP 16; TEMP 35.9; O2SAT 93; BMI 46.4
[2023-12-29] MEDS: tezepelumab-ekko 210 MG/1.91 ML SYRINGE SC (10:50)
== END 2023-12-29 10:13 | disposition home or self-care (01) ==
PROVIDERS: PCP Internal Medicine Infectious Disease; Referring Provider Nurse Practitioner Acute Care; Visit Provider Nurse Practitioner Acute Care
DX: J45.50 Severe persistent asthma, uncomplicated (principal)
CPT/HCPCS: 96372; J2356

== ENCOUNTER 2024-01-15 08:00 | Outpatient (RCR) | payer MEDICARE, MEDICAID, SELFPAY ==
[2023-05-10 08:19] VITALS: BMI 44.4
--- NOTE | 2024-01-15 09:00 | BH.COMM ---
Communication Note Communication with Client Communication Note: Met with patient to complete initial paperwork. No significant changes since pre-admission screening. Completed [place] Su[facility] Screening. Mild risk. Consulted with Dr. Maldonado with plan to admit to [facility] level of care care with dx f33.2
--- NOTE | 2024-01-15 09:00 | BH.COMM_ITS ---
Communication Note Communication with Client Communication Note: Met with patient to complete initial paperwork. No significant changes since pre-admission screening. Completed [place] Suicide Screening. Mild risk. Consulted with Dr. Maldonado with plan to admit to [facility] level of care care with dx f33.2
--- NOTE | 2024-01-15 09:05 | BH.SGPN.GN ---
Behaviors/Verbalizations/Mental Status: [Patient was alert and oriented, appropriately dressed and groomed. Eye contact was fair, motor activity normal, patient did not speak other than stating she did not want to share. Affect and mood unable to be determined due to lack of participation. Thoughts unable to be determined due to lack of participation. Patient appeared to be content as evidence by laughing at some of the interactions amongst group members and showing interest in the conversation. Reviewed Patients symptom tracker and the patient reports depressed mood, anxiety/panic attacks, agitation/irritability/anger, self-harm urges, and thoughts/risk of suicide within normal limits.] Client Response/Progress/Benefit: [This is patients first group. Patient stated she did not want to share during first group. Patient was quiet and respectful to other group members while they shared their mental wins and stressors. Patient will continue with IOP treatment to help develop healthy skills, promote mood stability, and improve distress tolerance. ] Narrative Note: []
--- NOTE | 2024-01-15 10:15 | BH.SGPN.GN ---
Behaviors/Verbalizations/Mental Status: [] Eye contact is good. Motor activity is appropriate. Appearance is casual. Speech is Appropriate. Mood is anxious. Affect is congruent. Thoughts are linear and logical. No evidence of psychosis. Client Response/Progress/Benefit: [] Limited participation during group discussions. Attentive during psychoeducation and group activity. Was engaged more during smaller group discussions. Group discussed what contributes to a person?s perspective and how perspective can positively or negatively impact mental health treatment. Participated in group discussion on things that can interfere with perspective which group identified as; mood, physical state, past experiences, relationships, anger, current stressors, finances, and several others. Pt appeared to benefit from increasing awareness of different perspectives and how they can affect mental health. Pt will continue IOP treatment to prevent decompensation, decrease isolation/panic attacks, increase healthy coping, and to improve functioning. Narrative Note: []
--- NOTE | 2024-01-15 12:47 | BH.MTP ---
Master Treatment Plan Patient Information Program Physician:: Dr. Rita Zarco Primary Therapist:: Erin BLANCHARD Psychiatric Diagnoses Psychiatric Diagnoses:: Major depressive disorder, recurrent, severe without psychosis F 33.2; Generalized anxiety disorder; PTSD Diagnosis Code(s):: F 33.2 Estimated LOS Estimated LOS (in weeks):: 6 Problem/Goal #1 Problem/Goal #1 Stated Goal:: Pt will increase mood stability by reducing isolation, worthlessness, and negative thinking patterns caused by MDD. Description of Barriers: Pt has significant health issues that impact pt's mobility and functioning. Pt often isolates and stares at the wall at home because her supports are worried about her going out and doing things. Pt uses marijuana edibles daily which helps for pain, but could reduce motivation. Pt has trauma from childhood that continues to impact pt. Functional Impact: Pt is a 28-year-old female with a history of MDD, ANTOINETTE, and PTSD. Pt was referred to [facility] by her outpatient therapist due to worsening depression and anxiety that was impacting pt's functioning. Pt reports feeling exhausted and knows she needs help with her mental health symptoms. Pt has been decompensating for the past 5-6 months. Significant stressors include health issues including lung failure and inability to exert herself due to fear that something will go wrong. Pt endorses a depressed mood with crying spells, isolation, avoidance, worthlessness, hopelessness, and lack of motivation and energy. Pt reports she mainly sleeps to pass the time and escape. Pt's symptoms are significantly impacting her overall functioning. Goal Relevant Strengths/Supports: Pt is connected with outpatient counseling and has support from her mother and boyfriend. Pt wants to get better and reports willingness to be anxious and vulnerable. Objectives Objective #1: Stated Objective: Pt will learn and utilize 2-3 healthy coping strategies to better manage depressive symptoms and reduce suicidal ideations as shown by a decrease of DMS-5 symptoms for depression. Interventions: Through group and individual sessions, therapist will help pt identify triggers and warning signs of depression including emotional, physical, and behavioral changes. Therapist will teach pt various coping skills to manage symptoms and give pt tangible resources to use to regulate emotions. Therapist will use cognitive restructuring techniques and help pt gain awareness of negative thoughts that reinforce guilt and depression. Therapist will provide psychoeducation on maintenance cycles and help pt learn ways to break unhealthy maintenance cycles. Therapist will help pt incorporate behavioral activation and assist pt in setting SMART goals. Discharge Criteria: Pt will have met this goal when can report learning and using at least 2 coping skills to manage depressive symptoms and reduce isolation. Additionally, pt will have met this goal when pt's DSM-5 scores for depression decrease Target Date: 02/26/24 Review Date: 02/05/24 Status: open Objective #2: Stated Objective: Pt will identify at least 2-3 negative self-talk messages used to reinforce negative core beliefs, worthlessness, and isolation and replace thoughts with balanced, realistic messages. Interventions: Therapist will help pt identify distorted, negative beliefs about self and replace with more realistic, affirmative messages. Therapist will use CBT and DBT to help pt increase insight to the connection between thoughts, emotions, and behaviors. Therapist will encourage pt to practice thought challenging. Discharge Criteria: Pt will have achieved this goal when can verbalize at least 2 cognitive distortions and effectively replace those thoughts with affirmative messages. Target Date: 02/26/24 Review Date: 02/05/24 Status: open Problem/Goal #2 Problem/Goal #2 Stated Goal:: Pt will reduce the frequency, intensity and duration of anxiety and PTSD symptoms while increasing ability to function on daily basis AEB reduced scores on the anxiety domai Description of Barriers: Pt has significant health issues that impact pt's mobility and functioning. Pt often isolates and stares at the wall at home because her supports are worried about her going out and doing things. Pt uses marijuana edibles daily which helps for pain, but could reduce motivation. Pt has trauma from childhood that continues to impact pt. Functional Impact: Pt is a 28-year-old female with a history of MDD, ANTOINETTE, and PTSD. Pt was referred to [facility] by her outpatient therapist due to worsening depression and anxiety that was impacting pt's functioning. Pt reports feeling exhausted and knows she needs help with her mental health symptoms. Pt has been decompensating for the past 5-6 months. Significant stressors include health issues including lung failure and inability to exert herself due to fear that something will go wrong. Pt endorses a depressed mood with crying spells, isolation, avoidance, worthlessness, hopelessness, and lack of motivation and energy. Pt reports she mainly sleeps to pass the time and escape. Pt's symptoms are significantly impacting her overall functioning. Goal Relevant Strengths/Supports: Pt is connected with outpatient counseling and has support from her mother and boyfriend. Pt wants to get better and reports willingness to be anxious and vulnerable. Objectives Objective #1: Stated Objective: Pt will identify 2-3 anxiety and PTSD triggers and 2 coping skills to use when feeling anxious or irritable to manage anxiety as shown by reducing DSM-5 scores for anxiety. Interventions: Therapist will provide education on anxiety, avoidance behaviors, and maintenance cycles. Therapist will help pt explore personal symptoms and warning signs of anxiety and PTSD. Therapist will teach pt coping skills to improve emotional regulation, mindfulness, and distress tolerance to help pt cope with anxiety in the moment. Discharge Criteria: Pt will have accomplished this goal when he can identify at least 2 triggers and report using 2 coping skills to manage anxiety and PTSD. Additionally, pt will have accomplished this goal AEB reduction of DSM-5 scores for anxiety. Target Date: 02/26/24 Review Date: 02/05/24 Status: open Objective #2: Stated Objective: Pt will increase self-confidence, reduce negative thinking patterns, and increase structure by accomplishing 2-3 small self-care goals a week. Interventions: Through group and individual sessions, pt will learn how to set small SMART goals to promote self-care and stress management. Therapist will provide education on stress and teach pt effective stress management strategies. Discharge Criteria: Pt will have accomplished this goal when can report accomplishing at least two small goals a week. Target Date: 02/26/24 Review Date: 02/05/24 Status: open
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
--- NOTE | 2024-01-15 12:48 | BH.MDN_ITS ---
Multi-Disciplinary Note Note 30-min Individual: Time Started:: 11:12 Date: 01/15/24 Purpose of session/treatment goals addressed:: To gather information on pt's current stressors, symptoms, triggers, history, and tx goals. Another goal was to build rapport and provide emotional support. Eye Contact:: Good and Fair Motor Activity:: Restless Appearance:: Casual Speech:: Soft Mood:: Anxious, Irritable and Depressed Affect:: Flat (tearful) Thoughts:: Racing, Circular and No evidence of hallucinations/delusions noted Staff Interventions:: thought challenging, psychoeducation on: (depression and anxiety), CBT techniques, rapport building, strengths perspective, treatment planning, goal setting and other (gathered psychosocial information) Client Response:: Pt responded well to session, open to meeting with therapist. Pt stated she was referred her by her outpatient therapist, Althea, who has recently retired. Pt really enjoyed Althea and was tearful about her retiring. Pt has not had much counseling experience in the past, so this was her first time really connecting with a provider. When asked what brought pt to IOP tx pt shared PTSD, anxiety, and ADHD. Pt shared she has a lot of trauma and since pt is home all day she has a lot of time to think about it. Pt endorses flashbacks, but no nightmares. Pt did not want to elaborate on her trauma, which is understandable. Pt shared she is also depressed because of her physical he alth issues and restrictions. Pt has a lot of lung issues and she said this led to her being home for an entire year. Pt shared she often feels trapped because her mother and boyfriend still do not want pt doing things on her own due to fear of medical emergency. Pt reports this makes her very angry and feel like a child. Pt receptive to discussion of grief and how pt is currently grieving her loss of functioning and her expectations for what life would look like. Pt stated she wants to travel and do things and she feels her family is keeping her stuck out of fear. Pt responded well to emotional validation and support from therapist. Pt receptive to meeting weekly. Risks/Concerns:: Pt denies any active SI, plan, or intent as of 01/15/24. Pt is future oriented. Progress Toward Goals/Plan:: Pt's first day of IOP tx and pt reports feeling anxious about group sessions, but open-minded. Pt started individual counseling about 5-6 months ago and has found it very beneficial. Pt has a lot of medical issues that have triggered anger, depression, and anxiety. Pt currently endorses a depressed mood with crying spells, irritability, ruminations, and PTSD symptoms. Pt will continue IOP tx to prevent decompensation, improve daily functioning, and gain healthy coping skills. Time Stopped:: 11:45
--- NOTE | 2024-01-17 08:50 | BH.NA_ITS ---
Physical Data Vital Signs Pulse Rate: 105 Blood Pressure: 170/98 Height/Weight Height: 1.5 m Weight:: 104.326 kg Weight in Pounds: 230.0 lbs Current Medication Compliance Medication Compliance Do you take your medication as prescribed?: Yes Nutritional History Appetite Nutritional Instructions: Describe your appetite:: Good Additional nutritional information:: Client states she is often on high doses of prednisone for her health issues, and states she was on prednisone for 2 weeks this month and has gained 20lbs. Functional Assessment Sleep Pattern Describe any problems with sleeping: Client states she sleeps about 8 hours per night. Sensory/Communication Assess Communication Problems Do you have difficulty understanding what people are saying?: No Medical Problems/History Cardiac Conditions Cardiovascular: Hypertension Respiratory Conditions Respiratory: Asthma and Other (See comments) (COPD, chronic respiratory failure (was on home oxygen for 1 year in the past)) Genitourinary Conditions Genitourinary: Other (See comments) (overactive bladder) Musculoskeletal Conditions Musculoskeletal: Other (See comments) (psoriatic arthritis, back pain) Pain Assessment Do you have acute or chronic pain?: Yes (psoriatic arthritis and back) Family History Family History Mother Hypertension Aunt Diabetes Uncle Diabetes Surgical History Surgical History Have you had any surgeries? If so, list type and date:: Yes (R heart cath x 3, bronchoscopy, wisdom teeth, T&A) Substance Abuse Substance Abuse Please describe substance abuse in the last 30 days:: Client denies alcohol use. Client states she smoked cigarettes from age 14 until 2018 when she quit. Client states she uses medical marijuana gummies 3 times per day. Client states she has 1-5 cans of Coke Zero per day. Mental Status Summary Mental Status Significant Findings/Observations on Appearance and Mood:: Client is alert and oriented x 4. Client is casually groomed. Client is cooperative with assessment. Client makes fair eye contact. Client's voice has normal rate and volume. Client is somewhat restricted, but is tearful at times during assessment. Client makes logical associations and has normal processing. Client denies delusions/hallucinations. Client denies SI. Suicide Assessment Suicidal Ideation Are you currently or have you been suicidal in the past?: No Suicidal Intentional Rating Scale (SIRS): No suicidal thoughts (past or present) (client states she has never had suicidal thoughts, but states she does have some survival ambivalence at times but states she would never hurt herself) Physician Notification Past Psychiatric History MH Treatment Hx Past Psychiatric Medications:: Zoloft, Wellbutrin, Ritalin around age 11 for only 1 month Age of first mental health symptoms: Client states she was diagnosed with ADHD around age 11 but only took Ritalin for about 1 month and states she regrets not taking medication longer because she thinks ADHD is part of her issue now. Client started taking medication for anxiety/depression about 2 years ago. Describe (age, circumstance, etc) any past hospitalizations: None. Current providers for mental health treatment (counselor, psychiatrist, manager rn case, etc.): Althea at [facility] for the last 5 months, has an appointment with Dr. Price in May 2024 Fall Risk Assessment Age Age: Less than 60 Mental Status Mental Status: Willing & able to ask for assistance when needed Physical Status Physical Status: No problems Impairments Impairments: None Elimination Elimination: Continent AND independent Gait or Balance Gait or Balance: Walks independently Hx of Falls History of falls in the past 6 months: No known history Medications/Substances Psychotropics:: Antidepressants Others:: Antihypertensives and Diuretics Medications/substances used within the past 24 hours or ordered to administer: 3 or more of the medications/substances listed above Total Score Total Points:: 2 RN Summary of Impressions Impressions Recommendations Impressions: Psychiatric Issues: 1. Major depressive disorder, recurrent, severe without psychosis 2. Generalized anxiety disorder 3. PTSD 4. Work and health issues 5. 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 Level of Care How do the client's current symptoms and functional deficits support need for this level of care?: Client was referred to [facility] by her outpatient therapist for ongoing anxiety/depression. Client states she has panic attacks a few times a week where she feels like her mind is racing and states she thinks her ADHD makes these worse. Client also reports isolating herself and having decreased motivation and energy. Client is tearful when she talks about how bad she felt in school when her asthma was so bad that her school wouldn't let her go on field trips with the other kids. Client states her medical problems are a huge stressor for her because of pain from her arthritis and how her impaired lung function makes her limited in activities. Client denies SI. IOP will promote gains and prevent further decompensation while providing social support and skills training.
[2024-01-17 09:31] VITALS: BP 170/98; PULSE 105
--- NOTE | 2024-01-17 10:10 | BH.SGPN.GN ---
Behaviors/Verbalizations/Mental Status: [] Eye contact is good. Motor activity is appropriate. Appearance is casual. Speech is Appropriate. Mood is anxious and depressed. Affect is congruent. Thoughts are linear and logical. No evidence of psychosis. Client Response/Progress/Benefit: [] Pt actively participated in and was engaged during experiential activity. Able to relate activity to group topic of FOF, interacting with fellow participants throughout. Engaged during interactive discussion on what failure means to the group in which peers identified and defined failure. Group was able to identify impact of fear of failure on mental health identifying that it can cause isolation, procrastination, self-sabotage, and negative self-talk?. Discussed that fear of failure has caused her to engage in avoidance, isolation, and negative self-talk. Attentive during interactive discussion on the role that FOF plays in mental wellness, depression, anxiety, and growth. Benefited from increased awareness of how the role that FOF plays in mental health and decision-making. Will continue in IOP to prevent decompensation, increase healthy coping, improve self-confidence, and to stabilize mood. Narrative Note: []
--- NOTE | 2024-01-17 11:15 | BH.SGPN.GN ---
Behaviors/Verbalizations/Mental Status: []Pt alert and oriented, neatly dressed and groomed. Eye contact good. Motor activity appropriate. Speech within normal limits. Affect congruent, mood euthymic and anxious. Thoughts linear, logical, no signs of hallucinations or delusions. Client Response/Progress/Benefit: [] Pt responded well to session, engaged in the experiential activity and attentive throughout group processing. Pt reported fear of failure has kept pt from seeking mental health help in the past. Pt completed fear of failure worksheet and was able to identify thoughts and behaviors that reinforce personal fear of failure including isolating, toxic people, and avoidance. Pt participated in group discussion regarding strategies to overcome fear of failure. Identified wanting to work on giving herself credit and being brave to do things solo. Appeared to benefit from increased knowledge of strategies to combat fear of failure and gaining self-awareness. Pt will continue IOP tx to prevent decompensation, gain healthy coping skills, and improve daily functioning. Narrative Note: []
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
--- NOTE | 2024-01-17 12:20 | BH.DR.ITP ---
Initial Treatment Plan Patient Information Visit Information: ADMISSION DATE: EXPECTED LOS: 4-6 weeks Problems/Symptoms Problem #1:: Depression Symptom:: Sadness, hopelessness, worthlessness, low motivation, hypersomnia, low energy, decreased concentration Problem #2:: Anxiety Symptom:: Worry, rumination, avoidance, hypervigilance, panic attacks
== END 2024-01-21 23:59 ==
LOC: BHIOP 08:00
PROVIDERS: PCP Internal Medicine Infectious Disease; Referring Provider Psychiatry & Neurology Psychiatry; Visit Provider Psychiatry & Neurology Psychiatry
DX: F33.2 Major depressive disorder, recurrent severe without psychotic features (principal); F41.1 Generalized anxiety disorder; F43.10 Post-traumatic stress disorder, unspecified; J45.909 Unspecified asthma, uncomplicated; L40.52 Psoriatic arthritis mutilans
CPT/HCPCS: S9480; 90832; 90853

== ENCOUNTER 2024-01-22 07:16 | Outpatient (RCR) | payer MEDICARE, SELFPAY ==
[2023-05-10 08:19] VITALS: BMI 44.4
[2024-01-22 00:33] VITALS: BP 170/98; PULSE 105
--- NOTE | 2024-01-22 09:00 | BH.SGPN.GN ---
Behaviors/Verbalizations/Mental Status: [Patient was alert and oriented, appropriately dressed and groomed. Eye contact was good, motor activity normal, speech within normal limits. Affect incongruent, mood content. Thoughts linear, logical, no signs of hallucinations or delusions. Reviewed Patients symptom tracker and the patient reports moderate in anxiety and low/moderate in depressed mood. Patient did not report symptoms of agitation/irritability/anger, self-harm urges, or thoughts/risk of suicide.] Client Response/Progress/Benefit: [Patient was engaged and open to the discussion. Patient reported her mood to be ?overwhelmed?. Patients first win is that she adopted a large dog from the pound on Monday but had to take the dog back. She stated this was a win because she recognized that not only was this an impulsive decision but that she chose her physical health as a priority knowing she couldn?t take care of this dog. Patients second win is that she has been getting better at recognizing when she is making impulsive decisions and now wants to figure out how she can prevent these decisions before she makes them. Patients stressor is that she has been gambling and spending her money too quickly. Patient said her bills are paid but she doesn?t like how quickly she ?wastes? the rest of it. Patient was interactive and respectful with other group members about their mental wins and stressors. Patient benefited from the discussion by listening to feedback and giving input on her peer?s stressors and mental health wins. Patient will continue with IOP treatment to help develop healthy skills, promote mood stability, and improve distress tolerance. ] Narrative Note: []
--- NOTE | 2024-01-22 10:10 | BH.SGPN.GN ---
Behaviors/Verbalizations/Mental Status: []Pt alert and oriented, casually dressed and groomed. Eye contact good. Motor activity appropriate. Speech within normal limits. Affect congruent, mood anxious and depressed. Thoughts linear, logical, no signs of hallucinations or delusions. Client Response/Progress/Benefit: [] Pt connected with topic of anxiety and participated throughout, providing input and taking notes. Participated throughout interactive discussion defining anxiety and identifying cognitive and physiological symptoms of anxiety. Group discussed how anxiety can prevent them from trying new things. Pt identified physical signs of anxiety as increased heart rate, headache, and stomachache. Pt identified safety behaviors as isolation, overplaning, and avoidance. Benefited from increased awareness and insight on anxiety and its impact. Pt will continue IOP tx to prevent decompensation, improve daily functioning, and increase boundary setting and self-care. Narrative Note: []
--- NOTE | 2024-01-22 11:15 | BH.SGPN.GN ---
Behaviors/Verbalizations/Mental Status: []Pt alert and oriented, casually dressed and groomed. Eye contact good. Motor activity appropriate. Speech within normal limits. Affect congruent, mood anxious. Thoughts linear, logical, no signs of hallucinations or delusions. Client Response/Progress/Benefit: [] Pt was an active participant AEB pt providing input and listening attentively to peers. Attentive during psychoeducation on mindfulness coping skills and their impact on reducing anxiety and improving overall mental health wellness. Group was able to identify self-soothing and mind-based coping skills which included: 5-senses, meditation, deep breathing, journaling, thought challenging, and progressive muscle relaxation. Pt also participated with peers in practicing mindfulness skills in session. Pt would like to work on using guided imagery to help pt let her thoughts pass ?like traffic.? Appeared to benefit from increasing repertoire of anxiety reduction skills. Pt will continue in IOP tx to prevent decompensation, improve self-compassion, and reduce avoidance behaviors. Narrative Note: []
--- NOTE | 2024-01-22 14:15 | BH.MDN ---
Multi-Disciplinary Note Note 30-min Individual: Time Started:: 12:05 Date: 01/22/24 Purpose of session/treatment goals addressed:: To work on goal #2 of pt's tx plan. Another goal was to combat distortions during session. Eye Contact:: Fair Motor Activity:: Restless Appearance:: Casual Speech:: Rambling Mood:: Anxious and Irritable Affect:: Constricted Thoughts:: Racing, Circular and No evidence of hallucinations/delusions noted Staff Interventions:: thought challenging, motivational interviewing, psychoeducation on: (addiction, dopamine, and maintenance cycles), CBT techniques, mindfulness skills, rapport building, strengths perspective, goal setting and taught coping skills Client Response:: Pt responded well to session, open to meeting with therapist. At first pt shared she had nothing to talk about because pt was feeling tired and felt she got good support from process group today. Then pt expressed frustration that everyone thinks I just have depression and they give me depression meds. Pt wanted to know why she was not given a medication for anxiety or her ADHD. Pt used some time to vent her frustrations and was receptive when therapist gently challenged pt. Pt had mentioned in anxiety group today that she often uses anger to mask her anxiety and vulnerability. Pt did well when therapist used thought challenging which helped pt combat her all or nothing thoughts like I'm not going to get the help I need here. Pt reminded herself that she is getting help from being social and gaining skills. Pt also reminded that she has advocates at [facility] and that many anti-depressants also treat anxiety. Pt then stated I guess we could talk about my addictive personality. Pt stated she has been addicted to marijuana since she was 14 years old and now she is addicted to gambling. Pt shared it's one of the only things I've been able to do due to pt's physical limitations, so pt is not ready to give this up. However, pt reports she is struggling financially and her impulsive shopping and gambling can impact her relationships. Pt's father was an alcoholic and although pt does not believe she is an alcoholic, pt can connect to the addiction of needing high levels of dopamine. Pt receptive to practicing the delay, distract, decide technique to help pt pause before making purchases online and when she is gambling. Pt also receptive to working on identifying other things she could do, such as volunteering. Pt reports she has wanted to try volunteering in the past, but she is too anxious. Pt was given a worksheet for homework. Risks/Concerns:: Pt denies any active SI, plan, or intent. Pt is future oriented. Progress Toward Goals/Plan:: Pt is starting her second week of IOP tx and pt reports benefitting from being with peers who understand her mental health stressors/issues. Pt reports feeling frustrated that she still has racing thoughts and anxiety, but pt responded well to encouragement from therapist to stick with treatment. Pt's symptoms of anxiety, depression, and impulsivity are impacting pt's functioning and relationships. Pt will continue IOP tx to prevent decompensation, improve daily functioning, and gain healthy coping skills. Time Stopped:: 12:37
--- NOTE | 2024-01-24 09:00 | BH.SGPN.GN ---
Behaviors/Verbalizations/Mental Status: [Patient was alert and oriented, appropriately dressed and groomed. Eye contact was good, motor activity normal, speech within normal limits. Affect congruent, mood content. Thoughts linear, logical, no signs of hallucinations or delusions. Reviewed Patients symptom tracker and the patient reports patient reported low in anxiety/panic attacks and agitation/irritability/anger. Patient did not report symptoms of depressed mood, self-harm urges or thoughts/risk of suicide.] Client Response/Progress/Benefit: [Patient was engaged and open to the discussion. Patient reported her mood to be ?content?. Patient stated that she doesn?t know any wins because she was just in group the day prior and ?nothing is different?. Patient stated that she is excited for better weather because she plans on taking a trip to the zoo with her mom and boyfriend. Patient mentioned that the group topic from yesterday made her rethink her thoughts about anxiety because she never saw it as a good thing. Patient stated her stressor is having independence because her mom and boyfriend tell her she can?t do certain things. Patient was interactive and respectful with other group members about their mental wins and stressors. Patient benefited from the discussion by listening to feedback and giving input on her peer?s stressors and mental health wins. Patient will continue with IOP treatment to help develop healthy skills, promote mood stability, and improve distress tolerance. ] Narrative Note: []
--- NOTE | 2024-01-24 10:10 | BH.SGPN.GN ---
Behaviors/Verbalizations/Mental Status: [] Eye contact is good. Motor activity is appropriate. Appearance is casual. Speech is Appropriate. Mood is anxious. Affect is congruent. Thoughts are linear and logical. No evidence of psychosis. Client Response/Progress/Benefit: [] Pt receptive to session AEB contributing to small group discussion, as well as listening attentively to others, and taking notes. Worked with group to brainstorm the positive and negative aspects of stress on physical and mental health. Group did well to identify the benefits of stress as well as the impact of distress on performance, relationships, and mental health. Pt identified their personal top stressors as: Health issues, medical appointments, and family. Pt seemed to benefit from increased awareness of current stressors and impact stress has on mental health. Will continue in IOP to prevent decompensation, increase healthy coping, and improve functioning. Narrative Note: []
--- NOTE | 2024-01-24 11:20 | BH.SGPN.GN ---
Behaviors/Verbalizations/Mental Status: []Pt alert and oriented, neatly dressed and groomed. Eye contact good. Motor activity appropriate. Speech within normal limits. Affect congruent, mood euthymic. Thoughts linear, logical, no signs of hallucinations or delusions. Client Response/Progress/Benefit: [] Pt was an active participant in group discussions and experiential activity. Attentive during psychoeducation on the 4 A's (Avoid, adapt, alter, accept) of coping with stress. Shared that they would benefit most from avoiding unnecessary stressors when she can, including interactions with toxic people. Was able to identify the connection between the experiential activity and utilization of stress management skills. Benefited from increased awareness of stress management strategies. Pt will continue IOP tx to prevent decompensation, improve daily functioning, and reduce isolation. Narrative Note: []
--- NOTE | 2024-01-25 09:00 | BH.SGPN.GN ---
Behaviors/Verbalizations/Mental Status: [] Eye contact is good. Motor activity is appropriate. Appearance is casual. Speech is Appropriate. Mood is anxious. Affect is congruent. Thoughts are linear and logical. No evidence of psychosis. Reviewed daily check in sheet and no reports of suicidal ideations or intent. Client Response/Progress/Benefit: [] Pt participated at times during the group discussion. Attentive. Daily symptom tracker notes 2/5 for anxiety and irritability. Able to identify mental health wins and healthy habits. Shared that she has a goal to decrease her isolation and increase physical activity. Yesterday she deleted her [employer] shopping freddie which she used to have supplies delivered to her home. She is hoping this will lead to her leaving the house more for groceries and shopping. She also plans to go to the bike trails once the weather improves. Last evening she made supper which was a great way to be active, distraction herself, and feel accomplished. Narrative Note: []
--- NOTE | 2024-01-25 10:05 | BH.SGPN.GN ---
Behaviors/Verbalizations/Mental Status: [] Client alert and oriented, casually dressed and disheveled, Eye contact good. Motor activity appropriate. Speech within normal limits. Affect congruent, mood euthymic. Thoughts linear, logical, no signs of hallucinations or delusions Client Response/Progress/Benefit: [] Client was an active participant in group discussion and experiential activity. Attentive during psychoeducation on resilience. Participated in interactive discussion with peers on the definition of resilience and where it comes from. Group identified that resiliency can be impacted by; relationships. past experiences, trauma, and current mental health state. Group also worked together to identify the benefits of being resilient and how it is related to mental health. Group with client's input identified increased confidence, ability to make decisions, and adaptability of benefits of being resilient. Able to relate experiential activity of group juggle to topics of resilience. Worked well with peers in small group in which they identified factors that contribute to resilience. Benefited from increased awareness of resilience and the factors that contribute to building resilience. Will continue in IOP to prevent decompensation and further promote mood stability. Narrative Note: []
--- NOTE | 2024-01-25 11:05 | BH.SGPN.GN ---
Behaviors/Verbalizations/Mental Status: [] Client alert and oriented, casually dressed and disheveled. Eye contact good. Motor activity appropriate. Speech within normal limits. Affect congruent, mood euthymic. Thoughts linear, logical, no signs of hallucinations or delusions Client Response/Progress/Benefit: [] Client responded well to session AEB completing the resilience worksheet provided. Client participated in the discussion and worked cooperatively with group to identify strategies to enhance each of the components discussed. Client reports belief they already use resilience trait of ?making decisive actions? Client shared they feel confident in making choices. Client stated they would like to continue to develop resilience trait of ?accepting change as a part of life.? Client seemed to benefit from discussing strategies for improving personal resilience and identifying resilience traits Client already possesses. Will continue IOP tx to promote mood stability, reduce negative thinking patterns, and increase distress tolerance skills. Narrative Note: []
--- NOTE | 2024-01-29 09:00 | BH.SGPN.GN ---
Behaviors/Verbalizations/Mental Status: [Patient was alert and oriented, appropriately dressed and groomed. Eye contact was good, motor activity normal, speech within normal limits. Affect congruent, mood content. Thoughts linear, logical, no signs of hallucinations or delusions. Reviewed Patients symptom tracker and the patient reports moderate in depressed mood, anxiety/panic attacks, and agitation/irritability/anger. Patient does not report symptoms of self-harm urges and behaviors or thoughts or risk of suicide. ] Client Response/Progress/Benefit: [Patient was engaged and open to the discussion. Patient reported her mood to be ?tired?. Patients first win is that she went out this weekend and spent time with her mom and boyfriend. She mentioned that she does not get to leave the house often because of her health. Patients second win was she went to a baby shower yesterday for a friend she has known for a long time. Patients stressor is that because she was so busy this weekend, she is ?exhausted? and did not want to get up to come to group today. Patient was interactive and respectful with other group members about their mental wins and stressors. Patient benefited from the discussion by listening to feedback and giving input on her peer?s stressors and mental health wins. Patient will continue with IOP treatment to help develop healthy skills, promote mood stability, and improve distress tolerance. ] Narrative Note: []
--- NOTE | 2024-01-29 10:15 | BH.SGPN.GN ---
Behaviors/Verbalizations/Mental Status: []Patient was alert and oriented, casually dressed and groomed. Eye contact was good, motor activity normal, speech within normal limits. Affect congruent, mood anxious and dysthymic. Thoughts linear, logical, no signs of hallucinations or delusion Client Response/Progress/Benefit: []Pt participated in the group discussions AEB providing input and taking notes. Attentive during psychoeducation Goal Setting. Participated during the discussion on common barriers which the group identified as: lack of motivation, making excuses, not feeling good enough, and lack of support. Group also identified benefits sense of purpose, improved self-confidence, more motivation for other goals, and improved mental health. Pt reports struggling specifically with barrier of self-doubt and low motivation. Benefited from increased awareness of mental health benefits of goals as well as psychoeducation on SMART goal criteria. Will continue in IOP to prevent decompensation, improve daily functioning, and increase ability to communicate with supports. Narrative Note: []
--- NOTE | 2024-01-29 11:10 | BH.SGPN.GN ---
Behaviors/Verbalizations/Mental Status: []Pt alert and oriented, casually dressed and groomed. Eye contact good. Motor activity appropriate. Speech within normal limits. Affect constricted, mood dysthymic. Thoughts linear, logical, no signs of hallucinations or delusions. Client Response/Progress/Benefit: [] Pt was engaged during discussion and willing to complete the worksheet challenging them to develop a personal SMART goal. Pt chose the goal of stopping self from spending money on unnecessary items when she gets bored. Pt stated this will help reduce stress by not having to worry about money at the end of every month. Pt identified boredom, enjoy buying things, and people around me as potential barriers. Identified solutions such as distracting self and asking supports from friends. Pt receptive to identifying solutions for these barriers and willing to begin working on this goal. Benefited from this group by developing a short-term SMART goal related to mental health. Will continue IOP tx to improve daily functioning, increase healthy coping skills, and prevent decompensation.
--- NOTE | 2024-02-01 09:05 | BH.SGPN.GN ---
Behaviors/Verbalizations/Mental Status: [] Eye contact is good. Motor activity is appropriate. Appearance is casual. Speech is Appropriate. Mood is anxious/irritable. Affect is congruent. Thoughts are linear and logical. No evidence of psychosis. Reviewed daily check in sheet and no reports of suicidal ideations or intent. Client Response/Progress/Benefit: [] Pt participated at times during group discussions. Attentive. Emotion for today is blank. Daily symptom tracker notes 3/5 for irritability and 2/5 for depression. Pt's check-in was very brief and superficial. She reports improved mood and increased engagement with support. During a group discussion she also shared that she had to end her relationship with her father several years ago. Elaborated on how that relationship was unhealthy and negatively impacted her mental health. Progress noted. Benefited from group support, encouragement, and feedback. Will continue in IOP to prevent decompensation, increase healthy coping, and improve functioning. Narrative Note: []
--- NOTE | 2024-02-01 10:15 | BH.SGPN.GN ---
Behaviors/Verbalizations/Mental Status: []Pt alert and oriented, neatly dressed and groomed. Eye contact good. Motor activity appropriate. Speech within normal limits. Affect congruent, mood content. Thoughts linear, logical, no signs of hallucinations or delusions. Client Response/Progress/Benefit: [] Pt an active participant throughout. Participated during interactive discussion on defining conflict (internal/external) and possible benefits to conflict. Attentive during psychoeducation on conflict styles and engaged during small group activity in which peers identified the benefits and consequences to each conflict style. Pt identified their primary conflict style as the avoiding type for both external and internal conflict. Pt shared belief that this helps her, but then pt reflected that it reinforces depression and causes anger. Benefited from increased awareness of the impact of conflict styles in mental health. Will continue in IOP tx to prevent decompensation, improve daily functioning, and reduce isolation. ? Narrative Note: []
--- NOTE | 2024-02-01 15:00 | BH.SGPN.GN ---
Behaviors/Verbalizations/Mental Status: [] Eye contact is good. Motor activity is appropriate. Appearance is casual. Speech is Appropriate. Mood is content. Affect is congruent. Thoughts are linear and logical. No evidence of psychosis. Client Response/Progress/Benefit: [] Pt was an active participant in group discussions and activity. Engaged with peers in activity and identifying healthy ways to approach each conflict scenario. Group discussed various conflict resolution skills that can be useful in addressing conflict outside of IOP. Benefited from practicing and learning conflict resolution skills during group activity. Able to identify areas pt wants to work on to improve how pt manages conflict both internally and externally. Expressed wanting to work on reducing her use of avoidance when she finds a potential conflict stressful. Will continue in IOP to stabilize mood, improve functioning in daily life, and prevent decompensation. Narrative Note: []
--- NOTE | 2024-02-02 00:29 | BH.MDN ---
Multi-Disciplinary Note Note 45-min Individual: Time Started:: 08:30 Date: 02/02/24 Purpose of session/treatment goals addressed:: To process current stressors and triggers while increasing emotional regulation skills in the moment. Eye Contact:: Good Motor Activity:: Restless Appearance:: Neat Speech:: Appropriate Mood:: Anxious and Irritable Affect:: Constricted and Other (tearful) Thoughts:: Racing and No evidence of hallucinations/delusions noted Staff Interventions:: thought challenging, CBT techniques, mindfulness skills (completed a PMR exercise), rapport building, strengths perspective and taught coping skills (conflict resolution skills) Client Response:: Pt responded well to session, asked to meet with therapist first thing this morning. Pt stated something happened in group yesterday and I really bothered me. Pt shared she felt this therapist had assumed something about pt and pt ruminated about it most of the night. Pt reported she thought this therapist believed pt had low self-esteem, but after discussing it together, pt realized it was a misunderstanding. Pt stated she was very upset and became immediately angry when she saw this therapist. Able to reflect on progress and skills used to manage this conflict effectively. Pt stated she is really trying to address conflict without yelling and she did well with confronting the issue without being aggressive. Pt was also able to see that because of her healthy response, the therapeutic relationship improved. Pt appeared to benefit from challenging her anxious thoughts as well and seeing that there is another perspective. Pt also benefitted from practicing progressive muscle relaxation (PMR) as pt was shaking from emotions when she entered session. Pt left session much less anxious and she was able to give herself credit for addressing issues head on instead of avoiding and ruminating which would have impacted her treatment. Risks/Concerns:: Pt denies any suicidal ideations, plan, or intent as of 02/02/24. Progress Toward Goals/Plan:: Pt showed progress today with addressing conflict in a healthy, direct way. Pt also benefitted from PMR today and shared this reduced anxiety significantly in the moment. Pt continues to struggle with negative thinking patterns that lead to rumination and irritability. Pt also continues to endorse depressive symptoms and anxiety symptoms that are impacting functioning. Pt will continue IOP tx to prevent decompensation, improve daily functioning, and increase distress tolerance skills. Time Stopped:: 09:15
--- NOTE | 2024-02-02 09:05 | BH.SGPN.GN ---
Behaviors/Verbalizations/Mental Status: [Patient was alert and oriented, appropriately dressed and groomed. Eye contact was fair, motor activity normal, patient did not speak other than stating he did not want to share. Affect and mood unable to be determined due to lack of participation. Thoughts unable to be determined due to lack of participation. Reviewed Patients symptom tracker and the patient reports severe in agitation/irritability/anger, and moderate to severe in anxiety/panic attacks. Patient does not report symptoms of depressed mood, self-harm urges, or thoughts/risk of suicide. Patient will be checked in on to assess for safety.] Client Response/Progress/Benefit: [Patient stated she did not want to share during first group. Patient was quiet and respectful to other group members while they shared their mental wins and stressors. Patient will continue with IOP treatment to help develop healthy skills, promote mood stability, and improve distress tolerance. ] Narrative Note: []
--- NOTE | 2024-02-02 10:10 | BH.SGPN.GN ---
Behaviors/Verbalizations/Mental Status: [] Eye contact is good. Motor activity is appropriate. Appearance is casual. Speech is Appropriate. Mood is euthymic. Affect is full. Thoughts are linear and logical. No evidence of psychosis Client Response/Progress/Benefit: [] Pt responded well to session AEB contributing to small group discussion, taking notes, and listening attentively to others. Group defined anger and discussed the benefits of managed anger and anger as a secondary emotion. Pt shared perspective on personal benefits of anger as advocating for self. Pt completed worksheet on anger triggers and personal warning signs of anger. Pt identified a common trigger as having a bad day. Appeared to benefit from increased knowledge of the anger cycle as well as personal triggers. Will continue IOP to prevent decompensation, increase healthy coping skills, decrease isolative behaviors, and improve functioning. Narrative Note: []
--- NOTE | 2024-02-02 11:15 | BH.SGPN.GN ---
Behaviors/Verbalizations/Mental Status: []Client alert and oriented, casually dressed and groomed. Eye contact good. Motor activity appropriate. Speech within normal limits. Affect congruent, mood content, anxious and content. Thoughts linear, logical, no signs of hallucinations or delusions. Client Response/Progress/Benefit: []Pt was engaged throughout AEB contributing to group discussion and self-reflection. Group finished processing cues to anger worksheet. Pt contributed as group brainstormed healthy coping skills for better managing anger which included: music, walking/exercise, taking a break, grounding tools, reflection, and journaling. Pt identified personal anger cycle and was able to make connections on how own thoughts/evaluations of a situation can worsen anger feelings. Stated will work on establishing and maintaining her boundaries to prevent additional unnecessary potential triggers. Pt appeared to benefit from identifying different techniques to manage anger as well as gaining awareness of potential consequences of unmanaged anger. Pt to continue IOP to promote use of healthy coping skills, challenge distortions -specifically personalization, and prevent decompensation. Narrative Note: []
--- NOTE | 2024-02-05 09:00 | BH.SGPN.GN ---
Behaviors/Verbalizations/Mental Status: [ Patient was alert and oriented, appropriately dressed and groomed. Eye contact was good, motor activity normal, speech within normal limits. Affect congruent, mood content. Thoughts linear, logical, no signs of hallucinations or delusions. Reviewed Patients symptom tracker and the patient reports moderate in depressed mood, low/moderate in anxiety/panic attacks and agitation/irritability/anger. Patient does not report symptoms of self-harm urges, or thoughts/risk of suicide.] Client Response/Progress/Benefit: [Patient was engaged and open to the discussion. Patient reported her mood to be ?better?. Patients stressor is that she did not get to enjoy the weather yesterday because she was hurting too bad. Patients first win was that she spent time with her boyfriend over the weekend and they watched movies. Patients second win is that she got her scooter in the mail and is excited to use it. Patient was interactive and respectful with other group members about their mental wins and stressors. Patient benefited from the discussion by listening to feedback and giving input on her peer?s stressors and mental health wins. Patient will continue with IOP treatment to help develop healthy skills, promote mood stability, and improve distress tolerance. ] Narrative Note: []
--- NOTE | 2024-02-05 10:10 | BH.SGPN.GN ---
Behaviors/Verbalizations/Mental Status: []Client alert and oriented, casually dressed and groomed. Eye contact good. Motor activity appropriate. Speech within normal limits. Affect congruent, mood dysthymic. Thoughts linear, logical, no signs of hallucinations or delusions. Client Response/Progress/Benefit: []Pt engaged in session AEB listening attentively to others and providing input throughout. Pt engaged in activity, able to connect how it can be uncomfortable and difficult to accept when things are out of one?s own control. Pt worked with group to identify what things in life can be hard to accept. Group identified things hard to accept as: change, loss of relationship, mental health diagnosis, other?s behaviors, and finances. Pt identified struggling to accept pain which leads to overexerting herself. Seemed to benefit from increased awareness of importance of acceptance. Pt to continue IOP tx to further improve mood stability, application of boundaries and thought challenging skills, and prevent decompensation. Narrative Note: []
--- NOTE | 2024-02-05 11:10 | BH.SGPN.GN ---
Behaviors/Verbalizations/Mental Status: []Pt alert and oriented, casually dressed and groomed. Eye contact fair. Motor activity appropriate. Speech within normal limits. Affect constricted, mood irritable and anxious. Thoughts linear, logical, no signs of hallucinations or delusions. Client Response/Progress/Benefit: []Pt responded well to session AEB taking notes and contributing to discussion throughout. Pt engaged as group continued discussion on acceptance and the mental health benefits of practicing acceptance. Pt and peers identified what makes acceptance challenging and pt completed a self-reflection exercise on what is hard to accept in pt's life. Pt identified what is hard to accept in her life and how makes things harder when resists acceptance. Group identified strategies to increase acceptance. Pt did struggle mid-way through group and shut down. Pt shared with therapist that she was having a hard time understanding the material which led her to feel frustrated. Pt did not identify what strategy she would work on. Pt appeared to benefit from gaining insight and learning strategies to increase acceptance. Pt will continue IOP tx to improve distress tolerance, increase consistent use of healthy coping skills, and prevent decompensation.
--- NOTE | 2024-02-07 09:00 | BH.SGPN.GN ---
Behaviors/Verbalizations/Mental Status: [Patient was alert and oriented, appropriately dressed and groomed. Eye contact was good, motor activity normal, speech within normal limits. Affect congruent, mood content. Thoughts linear, logical, no signs of hallucinations or delusions. Reviewed Patients symptom tracker and the patient reports moderate in anxiety/panic attacks, agitation/irritability/anger, low/moderate in depressed mood, and wrote ?a little? instead of a number in thoughts of suicide. Patient did not report symptoms of self-harm urges/behaviors, or risk of suicide. ] Client Response/Progress/Benefit: [Patient was engaged and open to the discussion. Patient reported her mood to be ?content?. Patients first win is that yesterday she went to the [facility] with her dogs yesterday and enjoyed herself. Patients second win was that she let herself relax after coming back home. Patients stressor is that her pain has increased but is unsure as to why. Patient was interactive and respectful with other group members about their mental wins and stressors. Patient benefited from the discussion by listening to feedback and giving input on her peer?s stressors and mental health wins. Patient will continue with IOP treatment to help develop healthy skills, promote mood stability, and improve distress tolerance. ] Narrative Note: []
--- NOTE | 2024-02-07 10:10 | BH.SGPN.GN ---
Behaviors/Verbalizations/Mental Status: [] Eye contact is good. Motor activity is appropriate. Appearance is casual. Speech is Appropriate. Mood is content. Affect is congruent. Thoughts are linear and logical. No evidence of psychosis. Client Response/Progress/Benefit: [] Pt was an active participant in group discussions. Attentive during psychoeducation on the 4 communication styles (Passive, Passive-Aggressive, Aggressive, and Assertive) and the obstacles to effective communication. Contributed during interactive discussion on the benefits of communicating effectively which included; having one's needs met, helping, building connection with others, decreases stress and uncertainty, improved relationships, and increased trust. Worked well in small group in which pt and peers identified the benefits and disadvantages to the different communication styles. Pt identified connecting with passive aggressive and aggressive communication styles. Benefited from increased understanding of communication styles and how these can impact effective communication. Will continue in IOP to prevent decompensation, improve mood stability, and improve functioning. Narrative Note: []
--- NOTE | 2024-02-07 11:15 | BH.SGPN.GN ---
Behaviors/Verbalizations/Mental Status: []Pt alert and oriented, casually dressed. Eye contact good. Motor activity appropriate. Speech within normal limits. Affect congruent, mood agitated. Thoughts linear, logical, no signs of hallucinations or delusions. Client Response/Progress/Benefit: []Pt responded well to session AEB Pt listening attentively to others and providing input during group discussion on the pay offs and costs of the different communication styles. Pt able to connect how current communication style impacts mental health. Connected with peers? comments about importance of using assertive communication. Pt did well being assertive in the group activity and practiced using assertive communication in the role playing scenarios. Pt helped their group develop assertive communication responses which pt reported helped her be direct without being aggressive. Pt seemed to benefit from increasing awareness of healthy strategies to improve communication. Will continue IOP tx to reduce negative thinking patterns, gain distress tolerance skills, and improve daily functioning Narrative Note: []
--- NOTE | 2024-02-07 12:16 | PCM.BH.PN_ITS ---
Progress Note Progress Note: History of Present Illness/Interim History: The patient is a 28-year-old single female with a history of depression, anxiety and ADHD who is seen in follow-up at the [facility] behavioral health IOP. I last saw the patient 3 weeks ago and at that time her Lexapro was increased to 20 mg daily. According to staff the patient has been consistent in her attendance and has been engaged in the program. She and the staff feel that her coping skills are improving. The patient states that she remains very frustrated by having severe pain from her arthritis. She states that at times she does not want to live with this much pain. She denies passive thoughts of , suicidal sumit ation, homicidal ideation, plan for suicide, hallucinations or delusions. She denies hopelessness now and feels a little more optimistic overall except regarding her pain. Instead of sleeping over 10 hours that she like she was 3 weeks ago the patient is now sleeping only 8 hours at night and feels that she is somewhat more motivated than when she started the program. She continues to self medicate with the gummy form of marijuana. Current Psychiatric Medications: [] Lexapro 20 mg p.o. daily (dose increased 3 weeks ago) Mental Status Examination: [] Patient is an obese, short female who is normal in appearance for stated age and casually dressed and groomed with good hygiene. She is ambulatory with a normal gait and has no psychomotor agitation or retardation. She is cooperative during the interview. Eye contact is good and speech is normal rate and rhythm and fluent with no pressure. Mood is depressed. Affect is mildly constricted and there is no tearfulness whatsoever. Thought process is goal-directed and organized. Thought content: Patient continues to have trouble trusting the healthcare system and remains frustrated that her arthritis pain cannot be improved. There is no evidence of passive thoughts of , suicidal ideation, plan for suicide, homicidal ideation, hallucinations or delusions. Reality testing is intact. Judgment is intact. Insight: Limited but some present. Impulsivity moderate. Diagnoses: [] 1. Major depressive disorder, recurrent, severe without psychosis 2. Generalized anxiety disorder 3. PTSD 4. Work and health issues 5. 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 Severe psoriatic arthritis with chronic pain Plan: [] The patient will continue the IOP in behavioral health at [facility] as the structure, support, education and group therapy will hopefully prevent worsening of the patient's symptoms which could require hospitalization. She felt safe during the interview and if it anytime she does not feel safe she agrees to let us know or go to the emergency room. No medication changes were made today and refills are given on the Lexapro. She will continue to follow-up with her outpatient medical and psychiatric providers and I will see the patient in follow-up in 2 weeks.
--- NOTE | 2024-02-08 08:30 | BH.MTP_ITS ---
Treatment Plan Review Demographics Date of Admission:: 01/15/24 Date of Treatment Plan Review:: 02/08/24 Admitting Diagnoses:: Major depressive disorder, recurrent, severe without psychosis F 33.2; Generalized anxiety disorder; PTSD Current Diagnoses:: Major depressive disorder, recurrent, severe without psychosis F 33.2; Generalized anxiety disorder; PTSD Patient Status Patient's Response to Treatment:: Pt has responded well to treatment AEB pt consistently attending IOP sessions and reduction of overall symptoms since admission. Pt contributes well during individual sessions and she is engaged d uring group sessions. Pt applies coping skills outside of IOP and reports overall mood is improved and pt is functioning better than she was three weeks ago. Status of Current Problems and Symptoms: Pt continues to report severe symptoms of anxiety per the DSM-5. Additionally, pt's physical health issues continue to impact her mental health and overall functioning. Pt's depressive symptoms are reducing, but pt is still struggling with distorted thinking patterns that reinforce rumination and anger. Pt is considering reducing her marijuana use as well and has decreased her amount for a few days. Pt reports she is feeling better which is making me want to stop IOP which could be a barrier to ongoing progress. Progress Problem #1: Problem Name:: Depression, thoughts of , hopelessness, and irritability Status of Goals:: Objective 1- complete with ongoing work encouraged. Pt?s DSM-5 scores for depression has decreased by 50% since admission, but pt?s anger scores have not yet decreased. Pt reports getting out of the house more, going new places with her dog, and being consistent with her medication. Objective 2- in progress. Pt is working on catching distortions and challenging thoughts. Pt continues to struggle with challenging thoughts on her own and there have been a few times during group sessions that pt?s distortions made pt shut down or make assumptions. Pt did well with addressing these with therapist. Team Recommendations:: Tx team recommends that pt continue working on these goals as pt can benefit from identifying and reframing distortions and utilizing healthy coping skills. Pt is also encouraged to continue working on assertive communication skills to help to articulate her needs, boundaries, and improve relationships. Problem #2: Problem Name:: Anxiety, panic, and ruminations Status of Goals:: Objective 1- complete with ongoing work encouraged. Pt?s DSM-5 scores for anxiety have not decreased. However, pt reports benefitting from learning calming skills including PMR and this has helped pt reduce physical symptoms of anxiety during sessions. Objective 2- in progress. Pt is working on engaging in more self-care and she has been getting out of the house more to enjoy nature. Team Recommendations:: Pt is encouraged to continue working on this goal as pt can further reduce anxiety and increase distress tolerance skills. Pt encouraged to continue working on boundary setting, using calming skills in addition to marijuana use, and self-care.
--- NOTE | 2024-02-08 09:03 | BH.SGPN.GN ---
Behaviors/Verbalizations/Mental Status: [] Eye contact is good. Motor activity is appropriate. Appearance is casual. Speech is Appropriate. Mood is euthymic. Affect is full. Thoughts are linear and logical. No evidence of psychosis. Reviewed daily check in sheet and no reports of suicidal ideations or intent. Client Response/Progress/Benefit: [] Pt participated at times during the group discussion. Attentive. Daily symptom tracked notes 2/5 for anxiety and 1/5 for agitation. Emotion for today is happy. Able to identify mental health wins and healthy habits. Pt reported she woke up this morning in a positive mood. Pt couldn't identify anything she has done that is helping her improved mood this morning. Client shared her ability to function the last couple of days has been worse. Benefited from group support, encouragement, and feedback. Will continue in IOP to increase consistent use of healthy coping skill, challenge distorted thoughts, and prevent decompensation.
--- NOTE | 2024-02-08 10:10 | BH.SGPN.GN ---
Behaviors/Verbalizations/Mental Status: []Pt alert and oriented, casually dressed and groomed. Eye contact good. Motor activity appropriate. Speech within normal limits. Affect congruent, mood content. Thoughts linear, logical, no signs of hallucinations or delusions. Client Response/Progress/Benefit: [] Pt was an active participant in group discussion. Attentive during psychoeducation on the CBT [place] (Thoughts, Behaviors, Emotions). Engaged in group discussion on how thoughts and behaviors can contribute to maintaining adverse feelings, such as depression, anxiety, and irritability. Completed personal maintenance cycle for depression and shared that she can be a ?negative person? which makes it hard to think with a different perspective. Shared this maintains depression and anxiety cycles. Pt benefited from increased awareness of the basis of CBT therapy as well as specific thoughts that are impacting pt' progress. Will continue in IOP to prevent decompensation, improve daily functioning, and increase self-care. Narrative Note: []
--- NOTE | 2024-02-08 11:54 | BH.MDN_ITS ---
Multi-Disciplinary Note Note 45-min Individual: Time Started:: 11:10 Date: 02/08/24 Purpose of session/treatment goals addressed:: To review cognitive distortions and how they impact pt's mental health. Another goal was to review pt's DSM-5 scores to gauge progress. Eye Contact:: Poor Motor Activity:: Appropriate Appearance:: Casual Speech:: Rambling Mood:: Euthymic and Anxious Affect:: Full Thoughts:: Linear, Logical and No evidence of hallucinations/delusions noted Staff Interventions:: thought challenging, CBT techniques (Reviewed the common cognitive distortions), strengths perspective, reviewed DSM-5 (discussed progress) and goal setting Client Response:: Pt responded well to session, open to meeting with therapist. Pt reports she feels better and she believes she is making progress. Reviewed pt's DSM-5 scores and pt shared feeling really proud of myself actually. Pt stated this week she has also reduced her marijuana use and that has helped pt be more social in group. Pt feels that she is benefitting from the medication increase as well as the group structure. Pt expressed some concern that because she is feeling better she is having urges to quit. Receptive to challenging this and pt noted she intends to stick out the entire program. Pt noted she is also getting out of her house more which has been helpful. Pt receptive to learning about cognitive distortions and after reviewing them pt was able to identify several she often uses. Pt connected most with all or nothing thinking, disqualifying the positives, mental filter, emotional reasoning, and magnifying. Pt gave personal examples of each of these distortio ns including I'm just a negative person, I only pay attention to the negative. Pt shared belief part of this is from being around her mother constantly and us feeding off each others emotions. Pt receptive to homework of using a thought log. Risks/Concerns:: Pt denies any suicidal ideations, plan, or intent. Pt denies any thoughts of today. Progress Toward Goals/Plan:: Pt is making progress towards her tx goals AEB pt's reduction of overall DSM-5 scores by 26% since admission. Pt's depression has decreased by 50% since admission as well. Pt continues to report severe anxiety, but she shared she is gaining valuable skills in IOP to help with this. Pt is also working on reducing her marijuana consumption which could temporarily impact pt's anxiety scores. Pt will continue IOP tx to prevent decompensation, improve daily functioning, and reduce negative thinking patterns. Time Stopped:: 11:55
--- NOTE | 2024-02-12 10:15 | BH.SGPN.GN ---
Behaviors/Verbalizations/Mental Status: []Pt alert and oriented, casually dressed and groomed. Eye contact good. Motor activity appropriate. Speech within normal limits. Affect congruent, mood euthymic. Thoughts linear, logical, no signs of hallucinations or delusions. Client Response/Progress/Benefit: [] Pt responded well to session, contributing to discussion, and engaged during the activity. Group identified the benefits of change which included: increased confidence, improving mental health, and making progress. Worked with the group to identify barriers to change, which included: uncomfortable emotions such as anxiety and fear, lack of energy, worried about what others will think, and fear of the unknown. Pt stated like most people, she does not enjoy change. Pt participated along with group in activity where they identified and discussed the emotions related to change. Benefited from increased awareness and understanding of emotions, benefits, and barriers related to change. Will continue IOP tx to promote mood stability, reduce negative thinking patterns, and improve distress tolerance. Narrative Note: []
--- NOTE | 2024-02-12 11:10 | BH.SGPN.GN ---
Behaviors/Verbalizations/Mental Status: [] Client alert and oriented, casually dressed and groomed. Eye contact good. Motor activity appropriate. Speech within normal limits. Affect congruent, mood content. Thoughts linear, logical, no signs of hallucinations or delusions. Client Response/Progress/Benefit: [] Client responded well to session, attentive. Did well to process activity and work with group to relate the strategies used to overcome barriers in the activity to managing change in own life. Client identified a change they would like to make as reducing unnecessary spending out of boredom. Client identified currently being in contemplation stage for this particular change. Client stated their goal is to practice using the Delay, Distract, Decide skill when tempted to spend money. Appeared to benefit from identifying a small goal to work towards. Client will continue IOP tx to prevent decompensation, decrease maladaptive coping, and increase overall functioning. Narrative Note: []
--- NOTE | 2024-02-13 09:05 | BH.SGPN.GN ---
Behaviors/Verbalizations/Mental Status: [] Eye contact is good. Motor activity is appropriate. Appearance is casual. Speech is Appropriate. Mood is anxious/irritable. Affect is congruent. Thoughts are linear and logical. No evidence of psychosis. Reviewed daily check in sheet and no reports of suicidal ideations or intent. Client Response/Progress/Benefit: [] Pt partiicpated at times during the group discussion. Attentive. Daily symptom tracker notes 5/5 for irritability and 4/5 for anxiety. Pt states that she is doing fine. Not isolation and more engaged with family. She has been consistently going on scooter rides at the park and feels less caged up in her house. Reports that prior to IOP she felt trapped in her house which was increasing her anger, anxiety, fear, and depression. Her primary stressors continue to be her medical complications. She feels she is progress Not sure I will need this program much longer.Benefited from group support, encouragement, and feedback. Will continue in IOP to maintain gains. Narrative Note: []
--- NOTE | 2024-02-16 08:39 | BH.DS_ITS ---
Discharge Summary Demographics Date of Admission:: 01/15/24 Discharge Date: 02/16/24 Presenting Problems at Admission:: Pt is a 28-year-old female with a history of MDD, ANTOINETTE, and PTSD. Pt was referred to [facility] by her outpatient therapist due to worsening depression and anxiety that was impacting pt's functioning. Pt reports feeling exhausted and knows she needs help with her mental health symptoms. Pt has been decompensating for the past 5-6 months. Significant stressors include health issues including lung failure and inability to exert herself due to fear that something will go wrong. Pt endorses a depressed mood with crying spells, isolation, avoidance, worthlessness, hopelessness, and lack of motivation and energy. Pt reports she mainly sleeps to pass the time and escape. Pt's symptoms are significantly impacting her overall functioning. Discharge Diagnoses:: Major depressive disorder, recurrent, severe without psychosis F 33.2; Generalized anxiety disorder; PTSD Reason for Discharge:: Pt voluntarily discharged from [facility] tx as pt reports I'm feeling really good and I don't see the point of coming back. Pt feels she will benefit more from individual counseling at this time. Treatment Progress During Treatment & Response: Pt made progress towards her tx goals AEB pt's reduction of overall DSM-5 scores by 26% since admission. Pt's depression has decreased by 50% since admission as well. However, pt disclosed to this therapist last week that she was having the urge to quit so there is a concern that pt could decompensate without the structure and routine of [facility] tx. Pt could have benefited from ongoing participation in [facility] to further reduce intensity of symptoms. Pt's anxiety scores at review did not decrease. Pt was an attentive group member and she did appear to benefit from group support. Issues Still to be Addressed:: Pt can benefit from continuing to work on combatting negative thinking patterns, reducing irritability, communicating needs and boundaries, and increasing her use of healthy coping skills to replace maladaptive coping skills. Discharge Recommendations/Instructions:: Pt will follow up with [facility] for individual sessions. Pt did not know when her next appointment was, but she was planning to call today. Pt has an appointment with Dr. Price in May. Pt reminded she can return to [facility] in the future if she needs the support. Discharge Handout
== END 2024-02-16 08:25 | disposition home or self-care (01) ==
LOC: BHIOP 07:16
PROVIDERS: PCP Internal Medicine Infectious Disease; Referring Provider Psychiatry & Neurology Psychiatry; Visit Provider Psychiatry & Neurology Psychiatry
DX: F33.2 Major depressive disorder, recurrent severe without psychotic features (principal); F41.1 Generalized anxiety disorder; F43.10 Post-traumatic stress disorder, unspecified; Z79.899 Other long term (current) drug therapy
CPT/HCPCS: S9480; 90832; 90834; 90853

== ENCOUNTER 2024-01-26 08:54 | Outpatient (CLI) | payer MEDICARE, MEDICAID, SELFPAY ==
[2023-05-10 08:19] VITALS: BMI 44.4
[2024-01-26 09:01] VITALS: BP 122/63; PULSE 79; RESP 16; TEMP 35.5; O2SAT 93; BMI 46.4
[2024-01-26] MEDS: tezepelumab-ekko 210 MG/1.91 ML SYRINGE SC (09:04)
== END 2024-01-26 08:55 | disposition home or self-care (01) ==
LOC: MEDOUTP 08:54
PROVIDERS: PCP Internal Medicine Infectious Disease; Referring Provider Nurse Practitioner Acute Care; Visit Provider Nurse Practitioner Acute Care
DX: J45.50 Severe persistent asthma, uncomplicated (principal)
CPT/HCPCS: 96372; J2356

== ENCOUNTER 2024-02-23 08:57 | Outpatient (CLI) | payer MEDICARE, SELFPAY ==
[2023-05-10 08:19] VITALS: BMI 44.4
[2024-02-23 09:06] VITALS: BP 121/76; PULSE 92; RESP 16; TEMP 36.1; O2SAT 92; BMI 46.4
[2024-02-23] MEDS: tezepelumab-ekko 210 MG/1.91 ML SYRINGE SC (09:42)
== END 2024-02-23 08:58 | disposition home or self-care (01) ==
LOC: MEDOUTP 08:57
PROVIDERS: PCP Internal Medicine Infectious Disease; Referring Provider Nurse Practitioner Acute Care; Visit Provider Nurse Practitioner Acute Care
DX: J45.50 Severe persistent asthma, uncomplicated (principal)
CPT/HCPCS: 96372; J2356

== ENCOUNTER 2024-03-25 08:39 | Outpatient (CLI) | payer MEDICARE, MEDICAID, SELFPAY ==
[2023-05-10 08:19] VITALS: BMI 44.4
[2024-03-25 08:45] VITALS: BP 113/64; PULSE 76; RESP 16; TEMP 36.7; O2SAT 95
[2024-03-25] MEDS: tezepelumab-ekko 210 MG/1.91 ML SYRINGE SC (09:15)
== END 2024-03-25 23:59 | disposition home or self-care (01) ==
PROVIDERS: PCP Internal Medicine Infectious Disease; Referring Provider Nurse Practitioner Acute Care; Visit Provider Nurse Practitioner Acute Care
DX: J45.50 Severe persistent asthma, uncomplicated (principal)
CPT/HCPCS: 96372; J2356

== ENCOUNTER 2024-04-22 08:50 | Outpatient (CLI) | payer MEDICARE, MEDICAID, SELFPAY ==
[2023-05-10 08:19] VITALS: BMI 44.4
[2024-04-22 08:57] VITALS: BP 137/72; PULSE 92; RESP 16; TEMP 35.9; O2SAT 96
[2024-04-22] MEDS: tezepelumab-ekko 210 MG/1.91 ML SYRINGE SC (09:27)
== END 2024-04-22 23:59 | disposition home or self-care (01) ==
LOC: MEDOUTP 08:50
PROVIDERS: PCP Internal Medicine Infectious Disease; Referring Provider Nurse Practitioner Acute Care; Visit Provider Nurse Practitioner Acute Care
DX: J45.50 Severe persistent asthma, uncomplicated (principal)
CPT/HCPCS: 96372; J2356

== ENCOUNTER 2024-05-27 09:28 | Outpatient (CLI) | payer MEDICARE, MEDICAID, SELFPAY ==
[2023-05-10 08:19] VITALS: BMI 44.4
[2024-05-27 09:33] VITALS: BP 125/95; PULSE 98; RESP 16; TEMP 36.1
[2024-05-27] MEDS: tezepelumab-ekko 210 MG/1.91 ML SYRINGE SC (10:15)
== END 2024-05-27 23:59 | disposition home or self-care (01) ==
LOC: MEDOUTP 09:28
PROVIDERS: PCP Internal Medicine Infectious Disease; Referring Provider Nurse Practitioner Acute Care; Visit Provider Nurse Practitioner Acute Care
DX: J45.50 Severe persistent asthma, uncomplicated (principal)
CPT/HCPCS: 96372; J2356

== ENCOUNTER 2024-06-25 08:43 | Outpatient (CLI) | payer MEDICARE, MEDICAID, SELFPAY ==
[2023-05-10 08:19] VITALS: BMI 44.4
[2024-06-25 08:49] VITALS: BP 125/64; PULSE 93; RESP 16; TEMP 35.5; O2SAT 94; BMI 50.5
[2024-06-25] MEDS: tezepelumab-ekko 210 MG/1.91 ML SYRINGE SC (09:15)
== END 2024-06-25 23:59 | disposition home or self-care (01) ==
LOC: MEDOUTP 08:43
PROVIDERS: PCP Internal Medicine Infectious Disease; Referring Provider Nurse Practitioner Acute Care; Visit Provider Nurse Practitioner Acute Care
DX: J45.40 Moderate persistent asthma, uncomplicated (principal)
CPT/HCPCS: 96372; J2356

== ENCOUNTER 2024-07-24 11:53 | Outpatient (CLI) | payer MEDICARE, MEDICAID, SELFPAY ==
[2023-05-10 08:19] VITALS: BMI 44.4
[2024-07-24] MEDS: tezepelumab-ekko 210 MG/1.91 ML SYRINGE SC (12:49)
[2024-07-24 12:50] VITALS: BP 142/75; PULSE 90; RESP 16; TEMP 36.4; O2SAT 94
== END 2024-07-24 23:59 | disposition home or self-care (01) ==
LOC: MEDOUTP 11:56
PROVIDERS: PCP Internal Medicine Infectious Disease; Referring Provider Nurse Practitioner Acute Care; Visit Provider Nurse Practitioner Acute Care
DX: J45.50 Severe persistent asthma, uncomplicated (principal)
CPT/HCPCS: 96372; J2356

== ENCOUNTER 2024-08-20 08:31 | Outpatient (CLI) | payer MEDICARE, MEDICAID, SELFPAY ==
[2023-05-10 08:19] VITALS: BMI 44.4
[2024-08-20 08:37] VITALS: BP 130/77; PULSE 76; RESP 16; O2SAT 93; BMI 48.4
[2024-08-20] MEDS: tezepelumab-ekko 210 MG/1.91 ML SYRINGE SC (09:13)
== END 2024-08-20 23:59 | disposition home or self-care (01) ==
PROVIDERS: PCP Internal Medicine Infectious Disease; Referring Provider Nurse Practitioner Acute Care; Visit Provider Nurse Practitioner Acute Care
DX: J45.50 Severe persistent asthma, uncomplicated (principal)
CPT/HCPCS: 96372; J2356

== ENCOUNTER 2024-09-17 09:51 | Outpatient (CLI) | payer MEDICARE, MEDICAID, SELFPAY ==
[2023-05-10 08:19] VITALS: BMI 44.4
[2024-09-17 10:05] VITALS: BP 127/82; PULSE 96; RESP 18; TEMP 35.6; O2SAT 95
[2024-09-17] MEDS: tezepelumab-ekko 210 MG/1.91 ML SYRINGE SC (10:38)
== END 2024-09-17 23:59 | disposition home or self-care (01) ==
LOC: MEDOUTP 09:53
PROVIDERS: PCP Internal Medicine Infectious Disease; Referring Provider Nurse Practitioner Acute Care; Visit Provider Nurse Practitioner Acute Care
DX: J45.50 Severe persistent asthma, uncomplicated (principal)
CPT/HCPCS: 96372; J2356

== ENCOUNTER 2024-10-15 09:08 | Outpatient (CLI) | payer MEDICARE, MEDICAID, SELFPAY ==
[2023-05-10 08:19] VITALS: BMI 44.4
[2024-10-15 09:14] VITALS: BP 130/63; PULSE 91; RESP 16; TEMP 35.6; O2SAT 94; BMI 48.4
[2024-10-15] MEDS: tezepelumab-ekko 210 MG/1.91 ML SYRINGE SC (09:48)
== END 2024-10-15 23:59 | disposition home or self-care (01) ==
LOC: MEDOUTP 09:08
PROVIDERS: PCP Internal Medicine Infectious Disease; Referring Provider Nurse Practitioner Acute Care; Visit Provider Nurse Practitioner Acute Care
DX: J45.50 Severe persistent asthma, uncomplicated (principal)
CPT/HCPCS: 96372; J2356

== ENCOUNTER 2024-11-15 09:08 | Outpatient (CLI) | payer MEDICARE, MEDICAID, SELFPAY ==
[2023-05-10 08:19] VITALS: BMI 44.4
[2024-11-15 09:23] VITALS: BP 113/78; PULSE 84; RESP 16; TEMP 35.8; O2SAT 93; BMI 48.4
[2024-11-15] MEDS: tezepelumab-ekko 210 MG/1.91 ML SYRINGE SC (09:52)
== END 2024-11-15 23:59 | disposition home or self-care (01) ==
LOC: MEDOUTP 09:10
PROVIDERS: PCP Internal Medicine Infectious Disease; Referring Provider Nurse Practitioner Acute Care; Visit Provider Nurse Practitioner Acute Care
DX: J45.50 Severe persistent asthma, uncomplicated (principal)
CPT/HCPCS: 96372; J2356

== ENCOUNTER 2024-12-16 12:16 | Outpatient (CLI) | payer MEDICARE, MEDICAID, SELFPAY ==
[2023-05-10 08:19] VITALS: BMI 44.4
[2024-12-16 12:39] VITALS: BP 123/65; PULSE 95; RESP 16; TEMP 35.8; O2SAT 94
[2024-12-16] MEDS: tezepelumab-ekko 210 MG/1.91 ML SYRINGE SC (13:04)
== END 2024-12-16 23:59 | disposition home or self-care (01) ==
LOC: MEDOUTP 12:16
PROVIDERS: PCP Internal Medicine Infectious Disease; Referring Provider Nurse Practitioner Acute Care; Visit Provider Nurse Practitioner Acute Care
DX: J45.50 Severe persistent asthma, uncomplicated (principal)
CPT/HCPCS: 96372; J2356

== ENCOUNTER 2025-01-10 09:14 | Outpatient (CLI) | payer MEDICARE, MEDICAID, SELFPAY ==
[2023-05-10 08:19] VITALS: BMI 44.4
[2025-01-10 09:28] VITALS: BP 123/84; PULSE 90; RESP 16; TEMP 36.2; O2SAT 94; BMI 48.4
[2025-01-10] MEDS: tezepelumab-ekko 210 MG/1.91 ML SYRINGE SC (09:49)
== END 2025-01-10 23:59 | disposition home or self-care (01) ==
LOC: MEDOUTP 09:14
PROVIDERS: PCP Internal Medicine Infectious Disease; Referring Provider Nurse Practitioner Acute Care; Visit Provider Nurse Practitioner Acute Care
DX: J45.50 Severe persistent asthma, uncomplicated (principal)
CPT/HCPCS: 96372; J2356

== ENCOUNTER → 2025-01-16 | Outpatient (CLI) | payer MEDICARE, MEDICAID, SELFPAY ==
[2023-05-10 08:19] VITALS: BMI 44.4
== END | disposition home or self-care (01) ==
LOC: PSN 09:03
PROVIDERS: PCP Internal Medicine Infectious Disease; Referring Provider Nurse Practitioner Acute Care; Visit Provider Nurse Practitioner Acute Care
DX: J45.50 Severe persistent asthma, uncomplicated (principal)
CPT/HCPCS: 94060; 94726; 94729

== ENCOUNTER 2025-02-10 08:32 | Outpatient (CLI) | payer MEDICARE, MEDICAID, SELFPAY ==
[2023-05-10 08:19] VITALS: BMI 44.4
[2025-02-10 08:41] VITALS: BP 114/73; PULSE 98; RESP 16; TEMP 36.1; O2SAT 93; BMI 48.4
[2025-02-10] MEDS: tezepelumab-ekko 210 MG/1.91 ML SYRINGE SC (09:14)
== END 2025-02-10 23:59 | disposition home or self-care (01) ==
LOC: MEDOUTP 08:32
PROVIDERS: PCP Internal Medicine Infectious Disease; Referring Provider Nurse Practitioner Acute Care; Visit Provider Nurse Practitioner Acute Care
DX: J45.50 Severe persistent asthma, uncomplicated (principal)
CPT/HCPCS: 96372; J2356

== ENCOUNTER 2025-03-10 08:36 | Outpatient (CLI) | payer MEDICARE, MEDICAID, SELFPAY ==
[2023-05-10 08:19] VITALS: BMI 44.4
[2025-03-10 08:40] VITALS: BP 129/81; PULSE 87; RESP 16; TEMP 35.6; O2SAT 92
[2025-03-10] MEDS: tezepelumab-ekko 210 MG/1.91 ML SYRINGE SC (08:49)
== END 2025-03-10 23:59 | disposition home or self-care (01) ==
LOC: MEDOUTP 08:37
PROVIDERS: PCP Internal Medicine Infectious Disease; Referring Provider Nurse Practitioner Acute Care; Visit Provider Nurse Practitioner Acute Care
DX: J45.50 Severe persistent asthma, uncomplicated (principal)
CPT/HCPCS: 96372; J2356

== ENCOUNTER 2025-04-07 09:07 | Outpatient (CLI) | payer MEDICARE, MEDICAID, SELFPAY ==
[2023-05-10 08:19] VITALS: BMI 44.4
[2025-04-07 09:26] VITALS: BP 132/72; PULSE 92; RESP 16; TEMP 36.5; O2SAT 96; BMI 48.4
[2025-04-07] MEDS: tezepelumab-ekko 210 MG/1.91 ML SYRINGE SC (09:28)
== END 2025-04-07 23:59 | disposition home or self-care (01) ==
LOC: MEDOUTP 09:07
PROVIDERS: PCP Internal Medicine Infectious Disease; Referring Provider Nurse Practitioner Acute Care; Visit Provider Nurse Practitioner Acute Care
DX: J45.50 Severe persistent asthma, uncomplicated (principal)
CPT/HCPCS: 96372; J2356

== ENCOUNTER 2025-05-09 09:50 | Outpatient (CLI) | payer MEDICAID, SELFPAY ==
[2023-05-10 08:19] VITALS: BMI 44.4
[2025-05-09 09:58] VITALS: BP 127/71; PULSE 91; RESP 16; TEMP 35.5; O2SAT 97; BMI 48.4
== END 2025-05-09 23:59 | disposition home or self-care (01) ==
LOC: MEDOUTP 09:51
PROVIDERS: PCP Internal Medicine Infectious Disease; Referring Provider Nurse Practitioner Acute Care; Visit Provider Nurse Practitioner Acute Care
DX: J45.50 Severe persistent asthma, uncomplicated (principal)
CPT/HCPCS: 96372

== ENCOUNTER 2025-06-05 13:34 | Outpatient (CLI) | payer MEDICAID, SELFPAY ==
[2023-05-10 08:19] VITALS: BMI 44.4
[2025-06-05 14:06] VITALS: BP 109/73; PULSE 91; RESP 16; O2SAT 96
== END 2025-06-05 23:59 | disposition home or self-care (01) ==
LOC: MEDOUTP 13:35
PROVIDERS: PCP Internal Medicine Infectious Disease; Referring Provider Nurse Practitioner Acute Care; Visit Provider Nurse Practitioner Acute Care
DX: J45.50 Severe persistent asthma, uncomplicated (principal)
CPT/HCPCS: 96372; J2356

== ENCOUNTER 2025-07-10 12:38 | Outpatient (CLI) | payer MEDICARE, MEDICAID, SELFPAY ==
[2023-05-10 08:19] VITALS: BMI 44.4
[2025-07-10 13:00] VITALS: BP 128/84; PULSE 90; RESP 16; TEMP 36.4; O2SAT 95
== END 2025-07-10 23:59 | disposition home or self-care (01) ==
LOC: MEDOUTP 12:38
PROVIDERS: PCP Internal Medicine Infectious Disease; Referring Provider Nurse Practitioner Acute Care; Visit Provider Nurse Practitioner Acute Care
DX: J45.50 Severe persistent asthma, uncomplicated (principal)
CPT/HCPCS: 96372; J2356

== ENCOUNTER 2025-08-05 12:24 | Outpatient (CLI) | payer MEDICARE, MEDICAID, SELFPAY ==
[2023-05-10 08:19] VITALS: BMI 44.4
[2025-08-05 12:57] VITALS: BP 132/69; PULSE 86; RESP 16; TEMP 35.6; O2SAT 95
== END 2025-08-05 23:59 | disposition home or self-care (01) ==
PROVIDERS: PCP Internal Medicine Infectious Disease; Referring Provider Nurse Practitioner Acute Care; Visit Provider Nurse Practitioner Acute Care
DX: J45.50 Severe persistent asthma, uncomplicated (principal)
CPT/HCPCS: 96372; J2356

== ENCOUNTER 2025-09-02 12:47 | Outpatient (CLI) | payer MEDICARE, MEDICAID, SELFPAY ==
[2023-05-10 08:19] VITALS: BMI 44.4
[2025-09-02 12:54] VITALS: BP 166/86; PULSE 109; RESP 16; TEMP 35.9; O2SAT 96
== END 2025-09-02 23:59 | disposition home or self-care (01) ==
LOC: MEDOUTP 12:47
PROVIDERS: PCP Internal Medicine Infectious Disease; Referring Provider Nurse Practitioner Acute Care; Visit Provider Nurse Practitioner Acute Care
DX: J45.50 Severe persistent asthma, uncomplicated (principal)
CPT/HCPCS: 96372; J2356

== ENCOUNTER 2025-09-30 12:45 | Outpatient (CLI) | payer MEDICARE, MEDICAID, SELFPAY ==
[2023-05-10 08:19] VITALS: BMI 44.4
[2025-09-30 12:50] VITALS: BP 125/78; PULSE 93; RESP 16; TEMP 35.6; O2SAT 94
== END 2025-09-30 23:59 | disposition home or self-care (01) ==
LOC: MEDOUTP 12:45
PROVIDERS: PCP Internal Medicine Infectious Disease; Referring Provider Nurse Practitioner Acute Care; Visit Provider Nurse Practitioner Acute Care
DX: J45.50 Severe persistent asthma, uncomplicated (principal)
CPT/HCPCS: 96372; J2356